=== PATIENT | female | born 1965 | race Caucasian/White ===

== ENCOUNTER 2019-08-10 17:45 | Emergency (ER) | payer OTHER, SELFPAY ==
--- NOTE | ~2019-08-10 | XR_ITS ---
EXAMINATION: XR tibia fibula LT 2V INDICATION: Left lower limb pain TECHNIQUE: Three views of the left tibia and fibula are obtained on two radiographs. COMPARISON: None available FINDINGS: There is no fracture, dislocation, or subluxation. The bones, soft tissues, and joint space s are normal. IMPRESSION: 1. No acute osseous abnormality. Reviewed, dictated and finalized at location A.
--- NOTE | ~2019-08-10 | XR_ITS ---
EXAMINATION: XR hand LT min 3V INDICATION: Left hand pain TECHNIQUE: Three views of the left hand are obtained. COMPARISON: 01/27/2012 FINDINGS: There is no fracture, dislocation, or subluxation. Bone alignment is normal. The soft tissu es are unremarkable. Mild osteoarthritis is noted. IMPRESSION: 1. No acute osseous abnormality. Reviewed, dictated and finalized at location A.
--- NOTE | ~2019-08-10 | XR_ITS ---
EXAMINATION: XR foot RT min 3V DATE: 08/10/2019 19:00 INDICATION: Right foot pain TECHNIQUE: Dorsoplantar, lateral, and 2 oblique views of the right foot were obtained. COMPARISON: None. FINDINGS: There is heterotopic ossification at the lateral base of the fifth metatarsal which has the appearance of a prior fracture. No definite acute osseous abnormality is identified. There is mild o steoarthritis at multiple interphalangeal joints. IMPRESSION: 1. No acute osseous abnormality. Reviewed, dictated and finalized at location A.
[2019-08-10 17:45] VITALS: PULSE 97; RESP 16; TEMP 36.7; O2SAT 95
--- NOTE | 2019-08-10 17:58 | PC.NURSE ---
CCOLLAR REMOVED BY AL WARE AT THIS TIME.
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
[2019-08-10 19:37] VITALS: BP 119/57; PULSE 95; RESP 18; O2SAT 98
== END 2019-08-10 20:10 | disposition home or self-care (01) ==
PROVIDERS: Emergency Provider General Practice; PCP Family Medicine
DX: S60.222A Contusion of left hand, initial encounter (principal); S90.31XA Contusion of right foot, initial encounter; V43.52XA Car driver injured in collision with other type car in traffic accident, initial encounter
CPT/HCPCS: 73130; 73590; 73630; 96365; 99284; J0131

== ENCOUNTER → 2020-01-19 12:56 | Outpatient (CLI) | payer OTHER, MEDICARE, SELFPAY ==
--- NOTE | ~2020-01-19 | MM_ITS ---
EXAMINATION: MM screening sergio BI w riaz HISTORY: Screening mammogram TECHNIQUE: Craniocaudal and mediolateral oblique 3-D tomosynthesis images were obtained and synthetic 2-D images were generated. CAD analysis was submitted and interpreted. COMPARISON: 01/31/2018 bilateral digital screening mammogram 10/11/2016 Limited left breast ultrasound 12/28/2015, 12/14/2013 bilateral digital screening mammogram examinations BREAST PARENCHYMAL COMPOSITION: The breasts are almost entirely fatty. FINDINGS: There is no evidence of suspicious mass, calcification, or architectural distortion to sugg est malignancy in either breast. There has been no suspicious interval change. IMPRESSION: 1. No mammographic evidence of malignancy. 2. Recommend routine screening mammography in one year. BI-RADS Category 1: Negative Reviewed, dictated and finalized at location A. NG MILL OPERATOR FOR METAL
== END ==
PROVIDERS: PCP Family Medicine; Visit Provider Family Medicine
DX: Z12.31 Encounter for screening mammogram for malignant neoplasm of breast (principal)
CPT/HCPCS: 77063; 77067

== ENCOUNTER 2020-04-26 10:17 | Outpatient (CLI) | payer OTHER, MEDICARE, SELFPAY ==
--- NOTE | 2020-04-26 11:00 | NEURO_ITS ---
Impression: # Known diabetic with MS complains of numbness of hands. # Bilateral Carpal Tunnel Syndrome, sensory more than motor. # No ulnar neuropathy. # Normal needle/EMG exam. # Clinical correlation recommended. Nerve Conduction Studies Anti Sensory Summary Table Stim Site NR Peak (ms) P-T Amp (?V) Site1 Site2 Delta-P (ms) Dist (cm) Tan (m/s) Left Median Anti Sensory (2-3nd Digit) Wrist 4.8 22.4 Wrist 2-3nd Digit 4.8 14.0 29 Wrist 5.0 19.0 Wrist 2-3nd Digit 4.8 14.0 29 Right Median Anti Sensory (2-3nd Digit) Wrist 5.2 21.6 Wrist 2-3nd Digit 5.2 14.0 27 Wrist 5.4 20.3 Wrist 2-3nd Digit 5.2 14.0 27 Left Radial Anti Sensory (Base 1st Digit) Wrist 2.1 11.8 Wrist Base 1st Digit 2.1 0.0 Right Radial Anti Sensory (Base 1st Digit) Wrist 2.0 15.8 Wrist Base 1st Digit 2.0 0.0 Left Ulnar Anti Sensory (5th Digit) Wrist 2.5 45.3 Wrist 5th Digit 2.5 14.0 56 Right Ulnar Anti Sensory (5th Digit) Wrist 2.4 43.6 Wrist 5th Digit 2.4 14.0 58 Motor Summary Table Stim Site NR Onset (ms) O-P Amp (mV) Site1 Site2 Delta-0 (ms) Dist (cm) Tan (m/s) Left Median Motor (Abd Poll Brev) Wrist 3.8 1.9 Elbow Wrist 6.7 29.0 43 Elbow 10.5 2.0 Right Median Motor (Abd Poll Brev) Wrist 4.0 1.8 Elbow Wrist 7.3 30.0 41 Elbow 11.3 1.8 Left Ulnar Motor (Abd Dig Minimi) Wrist 2.5 8.7 A Elbow Wrist 5.3 30.0 57 A Elbow 7.8 7.4 Right Ulnar Motor (Abd Dig Minimi) Wrist 2.8 6.4 A Elbow Wrist 5.2 29.0 56 A Elbow 8.0 5.4 F Wave Studies NR F-Lat (ms) L-R F-Lat (ms) Left Median (Mrkrs) (Abd Poll Brev) 31.10 0.58 Right Median (Mrkrs) (Abd Poll Brev) 31.68 0.58 Left Ulnar (Mrkrs) (Abd Dig Min) 27.97 0.31 Right Ulnar (Mrkrs) (Abd Dig Min) 28.28 0.31 EMG Side Muscle Nerve Root Ins Act Fibs Amp Dur Recrt Comment Right 1stDorInt Ulnar C8-T1 Nml Nml Nml Nml Nml Right Ext Indicis Radial (Post Int) C7-8 Nml Nml Nml Nml Nml Right Ext Digitorum Radial (Post Int) C7-8 Nml Nml Nml Nml Nml Right BrachioRad Radial C5-6 Nml Nml Nml Nml Nml Right PronatorTeres Median C6-7 Nml Nml Nml Nml Nml Right Abd Poll Brev Median C8-T1 Nml Nml Nml Nml Nml Left 1stDorInt Ulnar C8-T1 Nml Nml Nml Nml Nml Left Ext Indicis Radial (Post Int) C7-8 Nml Nml Nml Nml Nml Left Ext Digitorum Radial (Post Int) C7-8 Nml Nml Nml Nml Nml Left BrachioRad Radial C5-6 Nml Nml Nml Nml Nml Left PronatorTeres Median C6-7 Nml Nml Nml Nml Nml Left Abd Poll Brev Median C8-T1 Nml Nml Nml Nml Nml Right ABD Dig Min Ulnar C8-T1 Nml Nml Nml Nml Nml Left ABD Dig Min Ulnar C8-T1 Nml Nml Nml Nml Nml Right Biceps Musculocut C5-6 Nml Nml Nml Nml Nml Right Brachialis Musculocut C5-6 Nml Nml Nml Nml Nml Right Triceps Radial C6-7-8 Nml Nml Nml Nml Nml Left Biceps Musculocut C5-6 Nml Nml Nml Nml Nml Left Brachialis Musculocut C5-6 Nml Nml Nml Nml Nml Left Triceps Radial C6-7-8 Nml Nml Nml Nml Nml MTDD
== END 2020-04-26 10:18 | disposition home or self-care (01) ==
PROVIDERS: PCP Family Medicine; Visit Provider Physician Assistant
DX: R20.0 Anesthesia of skin (principal); R20.2 Paresthesia of skin; G56.03 Carpal tunnel syndrome, bilateral upper limbs
CPT/HCPCS: 95886; 95911

== ENCOUNTER → 2020-05-10 13:27 | Outpatient (CLI) | payer OTHER, MEDICARE, SELFPAY ==
--- NOTE | ~2020-05-10 | DEXA_ITS ---
Bone Density Report Name: Desirae Ballesteros Age: 55 Sex: Female Ethnicity: White Date of : 1965 Indication: osteopenia; parental hip fracture; height loss; asthma or emphysema; postmenopausal Referring Provider: Arthur Landon Study: Bone densitometry was performed. Exam Date: May 10, 2020 Accession number: [id number] Bone Density: Region BMD T-score Z-score Classification AP Spine (L1, L2) 1.089 1.0 1.9 Normal Femoral Neck (Left) 0.594 -2.3 -1.4 Osteopenia Total Hip (Left) 0.777 -1.4 -0.8 Osteopenia Femoral Neck (Right) 0.642 -1.9 -0.9 Osteopenia Total Hip (Right) 0.855 -0.7 -0.1 Normal Total Hip Mean 0.816 -1.1 -0.5 Osteopenia World Health Organization criteria for BMD impression classify patients as: Normal (T-score at or above -1.0), Osteopenia (T-score between -1.0 and -2.5), or Osteoporosis (T-score at or below -2.5). 10-year Fracture Risk(1): Major Osteoporotic Fracture 14% Hip Fracture 1.1% Reported Risk Factors: [place] (), Neck BMD=0.594, BMI=29.5, parental fracture (1) FRAX(R) Version 3.08. Fracture probability calculated for an untreated patient. Fracture probability may be lower if the patient has received treatment. Previous Exams: Region Exam Age BMD T-score BMD Change BMD Change Date g/cm2 vs Baseline vs Previous AP Spine(L1, L2) 05/10/2020 55 1.089 1.0 -0.036 -0.013 01/31/2018 52 1.103 1.1 -0.022 -0.022 12/28/2015 50 1.125 1.3 Total Hip(Left) 05/10/2020 55 0.777 -1.4 -0.041 0.000 01/31/2018 52 0.777 -1.4 -0.041* -0.041* 12/28/2015 50 0.818 -1.0 Total Hip(Right) 05/10/2020 55 0.855 -0.7 -0.039 -0.014 01/31/2018 52 0.869 -0.6 -0.025 -0.025 12/28/2015 50 0.894 -0.4 *Denotes significance at 95% confidence level, LSC for AP Spine = 0.022 g/cm2, LSC for Total Hip = 0.027 g/cm2 Clinical Information Provided by Patient: Parent has had a hip fracture Has used the following medications: Vitamin D, Calcium, MTV Has the following medical conditions: Asthma or Emphysema Patient maximum height was 68.5 Menopause Age: 51 No regular weight bearing exercise Drinks caffeinated beverages Onset of menses at age 15 Number of children 2 Impression: The patient has low bone mass, based on the Left Femoral Neck T-score. The patient has an estimated ten-year risk of hip fractur
== END ==
PROVIDERS: PCP Family Medicine; Visit Provider Family Medicine
DX: Z78.0 Asymptomatic menopausal state (principal); M85.852 Other specified disorders of bone density and structure, left thigh; M85.851 Other specified disorders of bone density and structure, right thigh
CPT/HCPCS: 77080

== ENCOUNTER 2020-12-18 13:50 | Outpatient (CLI) | payer OTHER, MEDICARE, SELFPAY ==
--- NOTE | 2020-12-18 | ECG_ITS ---
Measurements Intervals [place] Rate: 92 P: 65 [place]: 177 QRS: 3 QRSD: 106 T: 43 QT: 350 QTc: 435 Interpretive Statements SINUS RHYTHM INCOMPLETE RIGHT BUNDLE BRANCH BLOCK BASELINE ARTIFACT- I, II, III BORDERLINE ECG Electronically Signed On 12-18-2020 16:48:00 CDT by Kevin Smith D.O.
[2020-12-18 14:59] LABS: Basophils Absolute Auto 0.1 K/mm3 (0.0-0.1); Basophils Percent Auto 0.8 % (0.2-1.2); Eosinophils Absolute Auto 0.2 K/mm3 (0-0.3); Eosinophils Percent Auto 2.5 % (0-4.4); Hematocrit 37.7 % (37.0-47.0); Hemoglobin 11.7 g/dL (12.0-15.0); Immature Granulocyte Absolute 0.07 K/mm3 (0.00-0.031); Immature Granulocyte Percent A 0.8 % (0-0.5); Lymphocytes Absolute Auto 1.26 K/mm3 (0.9-3.2); Lymphocytes Percent Auto 13.9 % (18.3-44.2); Mean Corpuscular Volume 90.2 fl (80-100); Mean Platelet Volume 9.4 fl (7.4-10.4); Monocytes Absolute Auto 0.8 K/mm3 (0.1-0.6); Monocytes Percent Auto 8.6 % (2.6-8.5); Neutrophils Absolute Auto 6.7 K/mm3 (1.3-6.7); Neutrophils Percent Auto 73.4 % (45.5-73.1); Platelet Count Result 285 k/mm3 (150-375); Red Blood Count 4.18 M/mm3 (4.2-5.4); White Blood Count 9.1 K/mm3 (4.5-10.0)
[2020-12-18 15:11] LABS: Add Urine Microscopic? YES; Appearance Urine Cloudy (Clear); Bilirubin Urine Negative (Negative); Blood Urine Negative (Negative); Calcium Oxalate Crystals Urine Present /hpf; Color Urine Amber (Yellow); Glucose Urine UA Negative (Negative); Ketones Urine Negative (Negative); Leukocyte Esterase Ur Trace LEU/UL (Negative); Mucus Urine Rare /lpf; Nitrate Urine Negative (Negative); Protein Urine Negative (Negative); Specific Grav Ur 1.024 (1.001-1.035); Squamous Epithelial Cell Urine Occasional /hpf (Few); Urobilinogen Urine Negative mg/dL (<2.0)
[2020-12-18 15:19] LABS: Anion Gap 9 mmol/L (8-16); Blood Urea Nitrogen 13 mg/dL (7-17); CRP < 0.5 mg/dL (<1.0); Calcium 9.4 mg/dL (8.4-10.2); Carbon Dioxide 30 mmol/L (22-30); Chloride 100 mmol/L (98-107); Estimated Glomerular Filt Rate > 60; Glucose 145 mg/dL (65-110); Sodium 139 mmol/L (137-145)
[2020-12-18 15:53] LABS: Erythrocyte Sedimentation Rate 16 mm/hr (0-20)
== END 2020-12-18 13:51 | disposition home or self-care (01) ==
PROVIDERS: PCP Family Medicine; Visit Provider Nurse Practitioner Adult Health
DX: Z01.812 Encounter for preprocedural laboratory examination (principal); M54.16 Radiculopathy, lumbar region; G89.29 Other chronic pain
CPT/HCPCS: 36415; 80048; 81001; 85025; 85652; 86140; 93005

== ENCOUNTER 2020-12-26 15:22 | Outpatient (CLI) | payer OTHER, MEDICARE, SELFPAY ==
[2020-12-26 16:05] LABS: Add Urine Microscopic? YES; Appearance Urine Cloudy (Clear); Bilirubin Urine Negative (Negative); Blood Urine Negative (Negative); Color Urine Yellow (Yellow); Glucose Urine UA Negative (Negative); Ketones Urine Negative (Negative); Leukocyte Esterase Ur Trace LEU/UL (Negative); Mucus Urine Rare /lpf; Nitrate Urine Negative (Negative); Protein Urine Negative (Negative); RBC Urine 0-2 /hpf (0-2); Specific Grav Ur 1.009 (1.001-1.035); Squamous Epithelial Cell Urine Occasional /hpf (Few); Urobilinogen Urine Negative mg/dL (<2.0); WBC Urine 0-3 /hpf
== END 2020-12-26 15:23 | disposition home or self-care (01) ==
PROVIDERS: Pain Medicine Pain Medicine; PCP Family Medicine; Visit Provider Nurse Practitioner Adult Health
DX: Z01.812 Encounter for preprocedural laboratory examination (principal)
CPT/HCPCS: 81001

== ENCOUNTER → 2021-01-19 13:30 | Outpatient (CLI) | payer OTHER, MEDICARE, SELFPAY ==
--- NOTE | ~2021-01-19 | XR_ITS ---
EXAMINATION: XR knee RT 2V DATE: 01/19/2021 14:37 INDICATION: Right knee pain. TECHNIQUE: 2 views of right knee standing were obtained. COMPARISON: Right knee radiographs 02/24/2015 FINDINGS: Bone alignment is normal. No fracture. There is mild tricompartment osteoarthritis. No knee joint effusion. IMPRESSION: 1. Mild right knee osteoarthritis. Reviewed, dictated and finalized at location A. EMS MANAGER
--- NOTE | ~2021-01-19 | XR_ITS ---
EXAMINATION: XR shoulder RT min 2V DATE: 01/19/2021 14:37 INDICATION: Right shoulder pain. TECHNIQUE: 4 views of right shoulder were obtained. COMPARISON: None. FINDINGS: Bone alignment is normal. No fracture. Glenohumeral joint is normal. There is mild osteoart hritis of acromioclavicular joint. There changes of anterior fusion procedure in cervical spine. Elec trodes overlie thoracic spine. IMPRESSION: 1. Mild osteoarthritis of acromioclavicular joint. Reviewed, dictated and finalized at location A. TRUSS MACHINE TENDER
== END ==
PROVIDERS: PCP Family Medicine; Visit Provider Nurse Practitioner Adult Health
DX: M19.011 Primary osteoarthritis, right shoulder (principal); M17.11 Unilateral primary osteoarthritis, right knee
CPT/HCPCS: 73030; 73560

== ENCOUNTER → 2021-02-27 00:57 | Outpatient (CLI) | payer OTHER, MEDICARE, SELFPAY ==
[2021-02-27 15:13] LABS: Influenza Control Positive
[2021-02-27 21:03] LABS: SARS-CoV-2 RNA PCR Negative
== END ==
PROVIDERS: Physician Assistant; PCP Family Medicine; Visit Provider Family Medicine
DX: R05.9 Cough, unspecified (principal); Z20.822 Contact with and (suspected) exposure to COVID-19
CPT/HCPCS: 87804; C9803; U0003; U0005

== ENCOUNTER → 2021-02-28 12:51 | Outpatient (CLI) | payer OTHER, MEDICARE, SELFPAY ==
--- NOTE | ~2021-02-28 | MM_ITS ---
EXAMINATION: MM screening sergio BI w riaz HISTORY: Screening TECHNIQUE: Craniocaudal and mediolateral oblique 3-D tomosynthesis images were obtained and synthetic 2-D images were generated. CAD analysis was submitted and interpreted. COMPARISON: Comparison to multiple prior studies sequentially, with oldest reviewed study dated 06/06. BREAST PARENCHYMAL COMPOSITION: The breasts are almost entirely fatty. FINDINGS: There is no evidence of suspicious mass, calcification, or architectural distortion to sugg est malignancy in either breast. There has been no suspicious interval change. IMPRESSION: 1. No mammographic evidence of malignancy. 2. Recommend routine screening mammography in one year. BI-RADS Category 1: Negative Reviewed, dictated and finalized at location A. STANT SECRETARY
== END ==
PROVIDERS: PCP Family Medicine; Visit Provider Physician Assistant
DX: Z12.31 Encounter for screening mammogram for malignant neoplasm of breast (principal)
CPT/HCPCS: 77063; 77067

== ENCOUNTER → 2022-10-30 14:21 | Outpatient (CLI) | payer OTHER, MEDICARE, SELFPAY ==
--- NOTE | ~2022-10-30 | MM_ITS ---
EXAMINATION: MM screening sergio BI w riaz HISTORY: Screening mammogram TECHNIQUE: Craniocaudal and mediolateral oblique 3-D tomosynthesis images were obtained and synthetic 2-D images were generated. CAD analysis was submitted and interpreted. COMPARISON: 02/28/2021, 01/19/2020 bilateral screening mammogram examinations BREAST PARENCHYMAL COMPOSITION: The breasts are almost entirely fatty. FINDINGS: Approximately 3 mm mass is suggested in the central right breast. Diagnostic right mammogra m and right breast ultrasound examination are recommended. Otherwise there is no evidence of suspicious mass, calcification, or architectural distortion to sugg est malignancy in either breast. There has been no other suspicious interval change. IMPRESSION: 1. 3 mm mass suggested in central right breast 2. Diagnostic right mammogram and right breast ultrasound examination are recommended BI-RADS Category 0: Incomplete: Needs additional imaging evaluation. Reviewed, dictated and finalized at location A. IMPRESSION: 1. 3 mm mass suggested in central right breast 2. Diagnostic right mammogram and right breast ultrasound examination are recom mended BI-RADS Category 0: Incomplete: Needs additional imaging evaluation.
== END ==
PROVIDERS: PCP Physician Assistant; Visit Provider Physician Assistant
DX: Z12.31 Encounter for screening mammogram for malignant neoplasm of breast (principal); N63.10 Unspecified lump in the right breast, unspecified quadrant
CPT/HCPCS: 77063; 77067

== ENCOUNTER 2023-05-08 11:08 | Outpatient (CLI) | payer OTHER, MEDICARE, SELFPAY ==
--- NOTE | ~2023-05-08 | CT_ITS ---
EXAMINATION: CT thoracic spine wo con DATE: 05/08/2023 11:29 INDICATION: Presence of neurostimulator. Other mechanical complication. TECHNIQUE: Computed tomography (CT) of the thoracic spine was performed without intravenous contrast. Automated exposure control and iterative reconstruction technique were employed. The dose-length pro duct was 953.33 mGy-cm. COMPARISON: None FINDINGS: There is 4 degrees dextrocurvature of thoracic spine. There are changes of anterior fusion procedure from C4 to C7 with interbody devices and anterior plate and screws. There is mild chronic a nterior wedging of T6, T7, T10, T11, and T12 vertebral bodies. There is mildly decreased disc height at multiple levels. There are bridging endplate osteophytes from T4 to T8, consistent with diffuse id iopathic skeletal hyperostosis (DISH). There is multilevel facet joint osteoarthritis, severe in the upper and lower thoracic spine. At T6-T7, there is a calcified left central extrusion with mild centr al canal stenosis. At T7-T8, there is a central extrusion with mild central canal stenosis. There is multilevel mild neural foraminal stenosis bilaterally. There are epidural electrodes with tips at T8 and T9-T10, respectively. IMPRESSION: 1. Mild thoracic spondylosis. 2. DISH. Reviewed, dictated and finalized at location E.
--- NOTE | ~2023-05-08 | CT_ITS ---
EXAMINATION: CT lumbar spine wo con DATE: 05/08/2023 11:29 INDICATION: Presence of neurostimulator. Other mechanical complication. TECHNIQUE: Computed tomography (CT) of the lumbar spine was performed without intravenous contrast. A utomated exposure control and iterative reconstruction technique were employed. The dose-length produ ct was 952.88 mGy-cm. COMPARISON: None FINDINGS: There is 3 degrees dextrocurvature of lumbar spine. There is mild chronic anterior wedging of T12 vertebral body. There is mildly decreased disc height at L2-L3 and severely decreased disc hei ght from L3-L4 through L5-S1. Partially visualized are epidural electrodes. The following disc levels are specifically discussed: L1-L2: The disc is bulging. There is severe bilateral facet joint osteoarthritis. There is mild right neural foraminal stenosis. There is mild central canal stenosis. L2-L3: The disc is bulging. There is severe bilateral facet joint osteoarthritis. There is moderate b ilateral neural foraminal stenosis. There is moderate central canal stenosis. L3-L4: The disc is bulging. There is severe bilateral facet joint osteoarthritis. There is moderate b ilateral neural foraminal stenosis. There is moderate central canal stenosis. L4-L5: The disc is bulging. There is severe bilateral facet joint osteoarthritis. There is moderate b ilateral neural foraminal stenosis. There is moderate central canal stenosis. L5-S1: The disc is bulging. There is severe bilateral facet joint osteoarthritis. There is moderate b ilateral neural foraminal stenosis. There is mild central canal stenosis. There is severe stenosis of right lateral recess. IMPRESSION: 1. Severe lumbar spondylosis. Reviewed, dictated and finalized at location E.
== END 2023-05-08 11:09 ==
LOC: MICIMG 11:09
PROVIDERS: PCP Family Medicine; Visit Provider Pain Medicine Pain Medicine
DX: Z96.82 Presence of neurostimulator (principal); T85.192A Other mechanical complication of implanted electronic neurostimulator of spinal cord electrode (lead), initial encounter; M43.04 Spondylolysis, thoracic region; M48.14 Ankylosing hyperostosis [Forestier], thoracic region; M43.06 Spondylolysis, lumbar region
CPT/HCPCS: 72128; 72131

== ENCOUNTER 2023-07-23 11:49 | Outpatient (CLI) | payer OTHER, MEDICARE, SELFPAY ==
--- NOTE | 2023-07-23 | ECG_ITS ---
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 Measurements Intervals [place] Rate: 97 P: 217 AR: 341 QRS: 21 QRSD: 110 T: 43 QT: 338 QTc: 429 Interpretive Statements SINUS RHYTHM SEPTAL MYOCARDIAL INFARCTION , PROBABLY OLD [40+ ms Q WAVE IN V1/V2] BASELINE ARTIFACT WHICH LIMITS INTERPRETATION No previous ECG available for comparison Electronically Signed On 07-23-2023 14:17:49 CDT by Kristofer Caal M.D.
[2023-07-23 12:50] LABS: Basophils Percent Auto 0.8 % (0.2-1.2); Eosinophils Absolute Auto 0.2 K/mm3 (0-0.3); Eosinophils Percent Auto 3.6 % (0-4.4); Hematocrit 42.7 % (37.0-47.0); Hemoglobin 12.9 g/dL (12.0-15.0); Immature Granulocyte Absolute 0.03 K/mm3 (0.00-0.031); Immature Granulocyte Percent A 0.6 % (0-0.5); Lymphocytes Absolute Auto 0.65 K/mm3 (0.9-3.2); Lymphocytes Percent Auto 12.5 % (18.3-44.2); Mean Corpuscular HGB Conc 30.2 g/dl (32-36); Mean Corpuscular Volume 89.3 fl (80-100); Mean Platelet Volume 9.4 fl (7.4-10.4); Monocytes Absolute Auto 0.3 K/mm3 (0.1-0.6); Monocytes Percent Auto 5.6 % (2.6-8.5); Neutrophils Percent Auto 76.9 % (45.5-73.1); Platelet Count Result 256 k/mm3 (150-375); Red Blood Count 4.78 M/mm3 (4.2-5.4); Red Cell Distribution Width 16.3 % (11.5-14.5); White Blood Count 5.2 K/mm3 (4.5-10.0)
[2023-07-23 13:09] LABS: Alanine Aminotransferase 22 U/L (6-35); Albumin Level 4.9 g/dL (3.5-5.1); Alkaline Phosphatase 90 U/L (38-126); Anion Gap 8 mmol/L (4-12); Aspartate Amino Transferase 22 U/L (14-36); Bilirubin,Total 0.6 mg/dL (0.2-1.3); Blood Urea Nitrogen 14 mg/dL (7-17); CRP 0.5 mg/dL (<1.0); Carbon Dioxide 29 mmol/L (22-30); Chloride 102 mmol/L (98-107); Estimated Glomerular Filt Rate > 60; Glucose 102 mg/dL (65-110); Potassium 4.3 mmol/L (3.4-5.0); Sodium 139 mmol/L (137-145)
[2023-07-23 13:12] LABS: Appearance Urine Clear (Clear); Bacteria Urine 4+ /hpf; Bilirubin Urine Negative (Negative); Blood Urine Negative (Negative); Color Urine Dark Yellow (Yellow); Glucose Urine UA Negative (Negative); Ketones Urine Negative (Negative); Leukocyte Esterase Ur 1+ LEU/UL (Negative); Nitrate Urine Positive (Negative); Non Pathogenic Casts 0-2; Protein Urine Negative (Negative); RBC Urine 0-2 /hpf (0-2); Specific Grav Ur 1.015 (1.001-1.035); Squamous Epithelial Cell Urine None Seen /hpf (Few); Urobilinogen Urine 0.2 mg/dL (<2.0); pH Urine 7.5 (5.0-9.0)
[2023-07-23 13:23] LABS: Add Urine Microscopic? YES
[2023-07-23 14:51] LABS: Erythrocyte Sedimentation Rate 8 mm/hr (0-20)
== END 2023-07-23 11:50 | disposition home or self-care (01) ==
LOC: ANHLAB 11:54
PROVIDERS: PCP Family Medicine; Visit Provider Pain Medicine Pain Medicine
DX: Z01.818 Encounter for other preprocedural examination (principal); Z79.899 Other long term (current) drug therapy; I25.2 Old myocardial infarction
CPT/HCPCS: 36415; 80053; 81001; 85025; 85652; 86140; 87077; 87086; 87088; 87186; 93005

== ENCOUNTER 2024-01-29 14:33 | Outpatient (CLI) | payer OTHER, MEDICARE, SELFPAY ==
--- NOTE | ~2024-01-29 | CT_ITS ---
EXAMINATION: CT cervical spine wo con DATE: 01/29/2024 15:00 INDICATION: Other cervical disc degeneration, unspecified. TECHNIQUE: Computed tomography (CT) of the cervical spine was performed without intravenous contrast. Automated exposure control and iterative reconstruction technique were employed. The dose-length pro duct was 412.44 mGy-cm. COMPARISON: None FINDINGS: Alignment is normal. There are changes of anterior fusion procedure from C4 to C7 with inte rbody graft and anterior plate and screws. There is bridging interbody bone at C5-C6. Vertebral body heights are normal. Intervertebral disc heights are normal. The following disc levels are specificall y discussed: C2-C3: There is severe right and moderate left uncovertebral joint osteoarthritis. There is mild righ t facet joint osteoarthritis. There is mild bilateral neural foraminal stenosis. There is no central canal stenosis. C3-C4: There is a large central extrusion. There is moderate right and mild left uncovertebral joint osteoarthritis. There is mild bilateral facet joint osteoarthritis. There is mild right neural forami nal stenosis. There is moderate central canal stenosis. C4-C5: There is moderate bilateral uncovertebral joint hypertrophy. There is mild bilateral facet arabella nt osteoarthritis. There is mild right neural foraminal stenosis. There is mild central canal stenosi s. C5-C6: There is mild bilateral uncovertebral joint hypertrophy. There is mild bilateral facet joint h ypertrophy. There is mild right neural foraminal stenosis. There is mild central canal stenosis. C6-C7: There is mild bilateral uncovertebral joint hypertrophy. There is mild bilateral facet joint o steoarthritis. There is mild bilateral neural foraminal stenosis. There is mild central canal stenosi s. C7-T1: There is no uncovertebral joint osteoarthritis. There is mild bilateral facet joint osteoarthr itis. There is no neural foraminal stenosis. There is mild central canal stenosis. IMPRESSION: 1. Anterior fusion procedure from C4 to C7. 2. Moderate cervical spondylosis, worst at C3-C4. Reviewed, dictated and finalized at location A. CUTTER
== END 2024-01-29 14:34 | disposition home or self-care (01) ==
PROVIDERS: Visit Provider Neurological Surgery
DX: M43.22 Fusion of spine, cervical region (principal); M47.812 Spondylosis without myelopathy or radiculopathy, cervical region; M50.30 Other cervical disc degeneration, unspecified cervical region; M48.02 Spinal stenosis, cervical region
CPT/HCPCS: 72125

== ENCOUNTER 2024-02-13 13:48 | Outpatient (CLI) | payer OTHER, MEDICARE, SELFPAY ==
--- NOTE | 2024-02-13 15:13 | ECG_ITS ---
Test Date: 2024-02-13 15:27:45 Measurements Intervals [place] Rate: 105 P: 72 ND: 157 QRS: 7 QRSD: 96 T: 51 QT: 336 QTc: 444 Interpretive Statements SINUS TACHYCARDIA INCOMPLETE RIGHT BUNDLE BRANCH BLOCK [90+ ms QRS DURATION, TERMINAL R IN V1/V2, 40+ ms S IN I/aVL/V4/V5/V6] LEFTWARD AXIS ABNORMAL ECG Electronically Signed On 02-13-2024 17:27:41 IMPREGNATOR by Bal Huntley M.D.
[2024-02-13 15:35] LABS: Hematocrit 43.8 % (37.0-47.0); Hemoglobin 14.1 g/dL (12.0-15.0); Mean Corpuscular HGB Conc 32.2 g/dl (32-36); Mean Corpuscular Hemoglobin 28.5 pg (26-34); Mean Corpuscular Volume 88.5 fl (80-100); Mean Platelet Volume 9.1 fl (7.4-10.4); Platelet Count Result 275 k/mm3 (150-375); Red Blood Count 4.95 M/mm3 (4.2-5.4); Red Cell Distribution Width 13.7 % (11.5-14.5); White Blood Count 7.8 K/mm3 (4.5-10.0)
[2024-02-13 15:47] LABS: Add Urine Microscopic? YES; Appearance Urine Cloudy (Clear); Bacteria Urine None Seen /hpf; Bilirubin Urine 1+ (Negative); Blood Urine Negative (Negative); Calcium Oxalate Crystals Urine Present /hpf; Color Urine Dark Yellow (Yellow); Glucose Urine UA Negative (Negative); Ketones Urine Trace mg/dL (Negative); Leukocyte Esterase Ur 1+ LEU/UL (Negative); Nitrate Urine Negative (Negative); Non Pathogenic Casts 0-2; Protein Urine Trace mg/dL (Negative); Specific Grav Ur 1.026 (1.001-1.035); Squamous Epithelial Cell Urine Occasional /hpf (Few); Urobilinogen Urine 0.2 mg/dL (<2.0); pH Urine 5.5 (5.0-9.0)
[2024-02-13 16:22] LABS: INR 0.9; Partial Thromboplastin Time 25.1 Seconds (22.3-36.8); Prothrombin Time 12.2 Seconds (11.1-14.7)
== END 2024-02-13 13:49 | disposition home or self-care (01) ==
PROVIDERS: PCP Family Medicine; Visit Provider Neurological Surgery
DX: Z01.818 Encounter for other preprocedural examination (principal); R94.31 Abnormal electrocardiogram [ECG] [EKG]; M48.02 Spinal stenosis, cervical region; I10 Essential (primary) hypertension
CPT/HCPCS: 36415; 81001; 85027; 85610; 85730; 87086; 93005

== ENCOUNTER 2024-03-01 12:21 | Outpatient (CLI) | payer OTHER, MEDICARE, SELFPAY ==
--- NOTE | ~2024-03-01 | XR_ITS ---
[id number] Ordering provider: Phyllis Mcdonnell MD History: . M48.02 - Spinal stenosis, cervical region . Comparison: None. FINDINGS: VERTEBRAL BODIES: Postoperative changes extending from C4 to C7. Normal height and alignment. No visi ble fracture or subluxation. The dens is intact. DISK SPACES: Well maintained. Disc spacers at the levels of C3-C4, C4-C5 and C5-C6 PARASPINOUS SOFT TISSUES: No prevertebral soft tissue swelling. IMPRESSION: No acute osseous abnormality cervical spine. Postoperative changes. Reviewed, dictated and finalized at location A. INTAKE WORKER
== END 2024-03-01 12:22 | disposition home or self-care (01) ==
PROVIDERS: PCP Family Medicine; Visit Provider Neurological Surgery
DX: M50.21 Other cervical disc displacement, high cervical region (principal); M50.221 Other cervical disc displacement at C4-C5 level; M50.222 Other cervical disc displacement at C5-C6 level; M48.02 Spinal stenosis, cervical region
CPT/HCPCS: 72040

== ENCOUNTER 2024-05-02 14:15 | Outpatient (CLI) | payer OTHER, MEDICARE, SELFPAY ==
--- NOTE | ~2024-05-02 | XR_ITS ---
Thoracic spine: Clinical Indication: Neurostimulator AP and lateral views were performed. No fracture is seen. There is normal alignment of the vertebrae. There is multilevel moderate degene rative disc narrowing throughout the thoracic spine. Paravertebral soft tissues appear normal. Neuros timulator device present. Cervical spine fixation hardware noted. Impression: Multilevel moderate degenerative disc narrowing throughout the thoracic spine. Reviewed, dictated and finalized at location . Impression: Multilevel moderate degenerative disc narrowing throughout the thoracic spine.
--- NOTE | ~2024-05-02 | XR_ITS ---
Lumbosacral Spine: AP and lateral views Clinical History: Pain Findings: The normal lordotic curve is maintained. No fracture or subluxation seen. There is severe d egenerative disc narrowing from L3 through S1. There is moderate degenerative disc narrowing at L1-L2 and L2-L3. There is moderate to severe facet arthropathy throughout the lumbar spine, worst from L3 through S1. The sacroiliac joints are normally outlined. Neurostimulator device present. Impression: Severe degenerative spondylosis, as above. Reviewed, dictated and finalized at location M. Impression: Severe degenerative spondylosis, as above.
--- OUTSIDE RECORDS SUMMARY | 2024-05-02 14:21 | XMS_ITS | Clinical Summary ---
Author Organization [facility] [employer] Address [address] [place] [address] Care Team Providers Care Locomotive Crane Engineer Name Role Phone Arthur Landon MD Primary Care Provider [phone] [facility] [employer],non-owned Affiliates and Associated Physician Practices is amultiple site organization consisting of ambulatory clinics and hospital sitesin [place], [place], [place] and [place]. This disclosure is being madepursuant to the Care Everywhere program and may not contain all information available regarding this patient. Last updated 17.[facility] [employer] Allergies Active Allergy Reactions Criticality Noted Date Comments Sulfamethoxazole W-Trimethoprim Rash Medium 05/18 Clarithromycin 02/24/2016 Hydrocodone-Acetaminophen 02/24/2016 Medications * Be aware that medications may not be up to date on this document. Alwaysverify current medications with the patient. Medication Sig Dispensed Refills Start Date End Date Status METFORMIN HCL PO Active Natalizumab (TYSABRI IV) Active DULoxetine (CYMBALTA) 60 MG capsule Take 90 mg by mouth once daily Active gabapentin PHN (GRALISE) 300 MG tablet Take 900 mg by mouth daily with dinner Active BACLOFEN PO Active CLONAZEPAM PO Active Mometasone Furo-Formoterol Fum (DULERA IN) Active Cholecalciferol (VITAMIN D-3 PO) Active Calcium Carbonate (CALTRATE 600 PO) Active CRANBERRY FRUIT PO Active B Complex Vitamins (VITAMIN B COMPLEX PO) Active Multiple Vitamins-Minerals (EMERGEN-C IMMUNE PO) Active fluticasone propionate (FLONASE) 50 MCG/ACT nasal spray [place] 1 [place] into each nostril 2 times daily 1 Bottle 1 02/24/2016 Active pregabalin (LYRICA) 50 MG capsule Take 50 mg by mouth 3 times daily Active buPROPion SR 12hr (WELLBUTRIN SR) 150 MG tablet Take 150 mg by mouth 2 times daily Active albuterol HFA (PROVENTIL;VENTOLIN; PROAIR) 108 (90 BASE) MCG/ACT inhalerIndications:A sthma with acute exacerbation, unspecified asthma severity, unspecified whether persistent (HCC) Inhale 2 puffs by mouth every 4 hours as needed for Shortness of Breath, Wheezing or Cough 1 Inhaler 10/25/2017 Active Social History Tobacco Use Types Packs/Day Years Used Date Smoking Tobacco: Never Smokeless Tobacco: Never Sex and Gender Information Value Date Recorded Sex Assigned at Not on file Gender Identity Not on file Sexual Orientation Not on file Last Filed Vital Signs Vital Sign Reading Time Taken Comments Blood Pressure 132/80 10/25/2017 11:07 AM CDT Pulse 114 10/25/2017 11:07 AM CDT Temperature 37.1 C (98.7 F) 10/25/2017 11:07 AM CDT Respiratory Rate 18 10/25/2017 11:07 AM CDT Oxygen Saturation 97% 10/25/2017 11:07 AM CDT Inhaled Oxygen Concentration - - Weight 88.9 kg (196 lb) 10/25/2017 11:07 AM CDT Height 172.7 cm (5' 8 ) 10/25/2017 11:07 AM CDT Body Mass Index 29.8 10/25/2017 11:07 AM CDT Plan of Treatment Health Maintenance Due Date Last Done Comments COLOGUARD (AGES 45-75) - COL ON CA SCREENING 1965 COLON MONITORING 1967 COLONOSCOPY - COLON CA SCREENING 1967 CT COLONOGRAPHY - COLON CA SCREENING 1965 Colorectal Cancer Screening 1965 FIT - COLON CA SCREENING 1967 FLEX SIG - COLON CA SCREENING 1967 LIPID TESTING 1965 MAMMOGRAM 1965 MEDICARE AWV 12 MONTHS 1967 PAP SMEAR 1967 HIV SCREENING 1982 HEPATITIS C SCREENING 02/09/1985 DTAP/TDAP/TD VACCINES (1 - Tdap) 1986 HEPATITIS B VACCINE (1 of 3 - 19+ 3-dose series) 1986 PNEUMOCOCCAL VACCINE 50+ (1 of 1 - PCV) 2017 ZOSTER VACCINE (1 of 2) 2017 SCREENING FOR DIABETES 03/12/2017 COVID-19 VACCINE (1 - 2023-2 5 season) 2023 INFLUENZA VACCINE (#1) 2023 6, 02/17/2007 DEPRESSION SCREENING 02/18/2024 HIB VACCINE Aged Out No longer eligi ble based on patient's age to complete this topic HPV VACCINE Aged Out No longer eligi ble based on patient's age to complete this topic MENINGOCOCCAL (Group B) VACCINE SHARED DECISION-MAKING Aged Out No longer eligible based on patient's age to complete this topic MENINGOCOCCAL GROUPS A/C/Y/W VACCINE Aged Out No longer eligible b ased on patient's age to complete this topic PNEUMOCOCCAL VACCINE Aged Out No long er eligible based on patient's age to complete this topic Care Teams Locomotive Crane Engineer Relationship Specialty Start Date End Date Arthur Landon MD [address] [place] [address] PCP - General Family Medicine 02/24/16
--- OUTSIDE RECORDS SUMMARY | 2024-05-02 14:21 | XMS_ITS | Patient Health Summary ---
Author Organization [facility] Address [address] [place] [address] Care Team Providers Care Anime Artist Name Role Phone Arthur Landon MD Primary Care Provider [phone] Note from [facility],non-owned Affiliates and Associated Physician Practices is amultiple site organization consisting of ambulatory clinics and hospital sitesin [place], [place], [place] and [place]. This disclosure is being madepursuant to the Care Everywhere program and may not contain all information available regarding this patient. Last updated 17.[facility] Allergies * Sulfamethoxazole W-Trimethoprim(Rash) -Medium Criticality * Clarithromycin * Hydrocodone-Acetaminophen Medications * Be aware that medications may not be up to date on this document. Alwaysverify current medications with the patient. * METFORMIN HCL PO * Natalizumab (TYSABRI IV) * DULoxetine (CYMBALTA) 60 MG capsule Take 90 mg by mouth once daily * gabapentin PHN (GRALISE) 300 MG tablet Take 900 mg by mouth daily with dinner * BACLOFEN PO * CLONAZEPAM PO * Mometasone Furo-Formoterol Fum (DULERA IN) * Cholecalciferol (VITAMIN D-3 PO) * Calcium Carbonate (CALTRATE 600 PO) * CRANBERRY FRUIT PO * B Complex Vitamins (VITAMIN B COMPLEX PO) * Multiple Vitamins-Minerals (EMERGEN-C IMMUNE PO) * fluticasone propionate (FLONASE) 50 MCG/ACT nasal spray(Started 02/24/2016) [place] 1 [place] into each nostril 2 times daily 1 refill remaining * pregabalin (LYRICA) 50 MG capsule Take 50 mg by mouth 3 times daily * buPROPion SR 12hr (WELLBUTRIN SR) 150 MG tablet Take 150 mg by mouth 2 times daily * albuterol HFA (PROVENTIL;VENTOLIN;PROAIR) 108 (90 BASE) MCG/ACT inhaler (Started 10/25/2017) Inhale 2 puffs by mouth every 4 hours as needed for Shortness of Breath, Wheezing or Cough Social History Tobacco Use Types Packs/Day Years [...] Mass Index 29.8 10/25/2017 11:07 AM CDT Procedures * PULSE OXIMETRY - POINT OF CARE (AMB)(Performed 10/25/2017) Performed for Asthma with acute exacerbation, unspecified asthma severity, unspecified whether persistent (HCC) Results * PULSE OXIMETRY - POINT OF CARE (AMB) (10/25/2017) Oximetry POCT 97 0 - 100 % QC Verified Yes Blood BLOOD SPECIMEN / Unknown 10/25/2017 Caroline Silva APRN-[facility] - POINT OF CARE ORDERABLES Care Teams Anime Artist Relationship Specialty Start Date End Date Arthur Landon MD [address] [place] [address] PCP - General Family Medicine 02/24/16
--- OUTSIDE RECORDS SUMMARY | 2024-05-02 14:21 | XMS_ITS ---
Author Organization [facility] [employer] [facility] Address [address] [facility] [address] [place] [address] Care Team Providers Care Agate Setter Name Role Phone Cody Rice Unavailable [phone] Social History Sex Assigned At : Social History Observation Description Sex Assigned At Female Encounters Encounter Location Date Provider Diagnosis [facility] [employer] [facility] [address] [facility] [address] [place] [address] 10/14/2023 Cody Rice Major depressive disorder, recurrent, mild F33.0 Assessments Encounter Date Diagnosis (ICD Code) Assessment Notes Treatment Notes Treatment Clinical Notes Section Notes 10/14/2023 Major depressive disorder, recurrent, mild (ICD-10 - F33.0) Plan Of Treatment Next Appt Details Provider Name:Cody dos santos, 05/25/2024 02:00:00 PM, [address], [facility] [address], [place], [address], Progress Notes * DEON HOPEOB:1965 ( 58 yo F)Acc No.[id number]:10/14/2023 Patient: LINA MARI :1965 A ge:58 Y S ex:Female Address:[address] [place], [address] Subjective: * Chief Complaints: * * Medical History: * Surgical History: * Hospitalization/Major Diagno stic Procedure: * Medications: Objective: * Vitals: * Physical Examination: Assessment: * Assessment: 1. M ajor depressive disorder, recurrent, mild - F33.0 (Primary) Plan: * Treatment: * Procedure Codes: * true * Date: Generated for Hai pastor/César/Lorena on: 0 05/02/2024 02:21 PM CDT
--- OUTSIDE RECORDS SUMMARY | 2024-05-02 14:21 | XMS_ITS | Referral Summary ---
Author Organization [facility] [employer] Address [address] [place] [address] Care Team Providers Care Short Range Air Defense Artillery Name Role Phone Arthur Landon MD Primary Care Provider [phone] Source Comments [facility] [employer],non-owned Affiliates and Associated Physician Practices is amultiple site organization consisting of ambulatory clinics and hospital sitesin [place], [place] and [place]. This disclosure is being madepursuant to the Care Everywhere program and may not contain all information available regarding this patient. Last updated 17.[facility] [employer] Allergies Active Allergy Reactions Criticality Noted Date [...] fluticasone propionate (FLONASE) 50 MCG/ACT nasal spray [place] 1 [place] into each nostril 2 times daily 1 [...] 10/25/2017 11:07 AM CDT Plan of Treatment Not on file Care Teams Short Range Air Defense Artillery Relationship Specialty Start Date End Date Arthur Landon MD [address] [place], [place] [id number] PCP - General Family Medicine 02/24/16
--- OUTSIDE RECORDS SUMMARY | 2024-05-02 14:21 | XMS_ITS | Clinical Summary ---
Author Organization [facility] Address [facility] [place] [address] Care Team Providers Care Vegetables Cook Name Role Phone [place] Landon MD Primary Care Provider Social History Tobacco Use Types Packs/Day Years Used Date Smoking Tobacco: Never Assessed Comments Unknown Sex and Gender Information Value Date Recorded Sex Assigned at Not on file Legal Sex Female 4:28 PM CDT Gender Identity Not on file Sexual Orientation Not on file Plan of Treatment Health Maintenance Due Date Last Done Comments Cervical Cancer Screening Pa p Smear (Age 30 to 64) Every 3 Years 1967 Colorectal Cancer Screening Colonoscopy (10 Years) 1967 Annual Physical 1970 Hepatitis C 1985 DTaP, Tdap and Td Vaccines ( 1 - Tdap) 1986 Hepatitis B Vaccines (1 of 3 - 19+ 3-dose series) 1986 Cervical Cancer Screening Pa p with HPV Testing (Age 30 to 64) Every 5 Years 1997 Cervical Cancer Screening with HPV 1997 Mammogram Screening 2007 Zoster Vaccines (1 of 2) 2017 COVID-19 Vaccine (2023-2 5 season) 2023 Influenza Adult (#1) 2023 Meningococcal B Vaccine Aged Out No l onger eligible based on patient's age to complete this topic Meningococcal Vaccine Aged Out No haresh lisandra eligible based on patient's age to complete this topic Pneumococcal Vaccine: Pediat rics (0 to 5 Years) and At-Risk Patients (6 to 64 Years) Aged Out No longer eligible b ased on patient's age to complete this topic RSV Immunizations Under 20 Months Aged Out No longer eligible based on patient's age to complete this topic Care Teams Vegetables Cook Relationship Specialty Start Date End Date [place] Landon MD [facility] [place] [phone] PCP - General 08/06/12
--- OUTSIDE RECORDS SUMMARY | 2024-05-02 14:21 | XMS_ITS | Data Portability ---
Author Organization [facility], Main Office Address [address] [place] [address] Assessment No assessment recorded. Plan of Treatment Reminders Order Date Submit Date Provider Last Modified By Organization Details Last Modified Time Details Appointments None recorded. Lab None recorded. Referral None recorded. Procedures None recorded. Surgeries None recorded. Imaging None recorded. Medication Orders clobetasol 0.05 % topical cream 2021 022 [facility] #[id number], [address], [place], [address], 12:16:38 Otezla 30 mg tablet 2021 022 [facility], [facility], [place], [address], 12:22:19 Patient TargetsNo targets recorded. Patient Instructions Encounter Date Encounter Id Patient Instructions Last Modified By Organization Details Last Modified Time 09/14/2021 [id number] OTEZLA RESTART- was controlling it well when she was on it. 1 MONTH - GIVEN SAMPLES Revd dx and tx. FU 6 mos. [email or web address] Not available 10/10/2021 14:08:26 Reason for Referral None Reported. Problems Name Problem SNOMED Code Status Onset Date Resolution Date Notes Provider Name and Address Organization Details Recorded Time Psoriasis vulgaris 933779727 Active 2021 Tyrell López MD [address], [place], [phone] [place] [address] Dermatology 14:43:09 Taking medication for chronic disease 2460214331750 01 Active 2021 Tyrell López MD [address], [place], [phone], [facility] Dermatology 2 14:43:12 Problem Notes None recorded. Medical Equipment None Reported. Allergies Allergen ID Allergen Name Allergen Category Reaction Reaction Severity Criticality Documentation Date Start Date Code Code System Note Provider Name and Address Organization Details Recorded Time 328 acetamino phen / hydrocodo ne medicatio n Not available Not available Not available 08/12/2017 47707 2 RxNorm Leanne Ochoa [facility] Dermatology 8 11:08:17 Medications Name Sig Start Date Stop Date Status Note LastModified by Organization Details LastModified Time amantadine HCl 100 mg tablet 04/22 completed Not Available Not Available Not Available amoxicillin 500 mg capsule TAKE 1 CAPSULE BY MOUTH EVERY 6 HOURS active Not Available Not Available No t Available nystatin 100,000 unit/mL oral suspension 04/22 completed Not Available Not Available Not Available prednisone 10 mg tablet 04/22 completed Not Available Not Available Not Available triazolam 0.25 mg tablet TAKE 1 TABLET BY MOUTH 90 MINUTES PRIOR TO APPOINTME NT active Not Available Not Available No t Available triamcinolo ne acetonide 0.5 % topical cream 04/22 completed Not Available Not Available Not Available atorvastati n 10 mg tablet TAKE 1 TABLET BY MOUTH DAILY active Not Available Not Available No t Available ofloxacin 0.3 % eye drops 03/19 completed Not Available Not Available Not Available hydrocodone 5 mg-acetamin ophen 325 mg tablet 03/19 completed Not Available Not Available Not Available ondansetron HCl 8 mg tablet 03/19 completed Not Available Not Available Not Available ondansetron HCl 4 mg tablet 04/22 completed Not Available Not Available Not Available prednisone 20 mg tablet 04/22 completed Not Available Not Available Not Available clonazepam 0.5 mg tablet TAKE 1 TABLET BY MOUTH IN THE MORNING AND 2 TABLETS AT NIGHT active Not Available Not Available No t Available clobetasol 0.05 % topical cream APPLY A THIN APPLICATI ON ONTO THE AFFECTED AREA(S) TWICE DAILY.NEV ER TO FACE active Not Available Not Available No t Available meclizine 12.5 mg tablet active Not Available Not Available Not Available phentermine 37.5 mg tablet TAKE 1 TABLET BY MOUTH DAILY active Not Available Not Available No t Available acetaminoph en 300 mg-codeine 30 mg tablet TAKE 1-2 TABLETS BY MOUTH EVERY 4-6 HOURS. MAX 10 TABS/24 HRS active Not Available Not Available No t Available prochlorper azine maleate 10 mg tablet 04/22 completed Not Available Not Available Not Available sulfamethox azole 800 mg-trimetho prim 160 mg tablet 04/22 completed Not Available Not Available Not Available lidocaine-p rilocaine 2.5 %-2.5 % topical cream 04/22 completed Not Available Not Available Not Available baclofen 20 mg tablet active Not Available Not Available No t Available ketorolac 10 mg tablet 04/22 completed Not Available Not Available Not Available ketorolac 0.5 % eye drops active Not Available Not Available Not Available oxycodone-a cetaminophe n 5 mg-325 mg tablet 03/19 completed Not Available Not Available Not Available prednisolon e acetate 1 % eye drops,suspe nsion 03/19 completed Not Available Not Available Not Available modafinil 200 mg tablet 04/22 completed Not Available Not Available Not Available acitretin 25 mg capsule TAKE 1 CAPSULE BY MOUTH EVERY DAY 03/19 completed Not Available Not Available Not Available benzonatate 100 mg capsule TAKE 1 CAPSULE BY MOUTH THREE TIMES A DAY NEEDED FOR COUGH active Not Available Not Available No t Available cephalexin 500 mg capsule TAKE 1 CAPSULE BY MOUTH EVERY 6 HOURS active Not Available Not Available No t Available oseltamivir 75 mg capsule 03/19 completed Not Available Not Available Not Available triamcinolo ne acetonide 0.1 % topical ointment APPLY A THIN LAYER TO THE AFFECTED AREA(S) BY TOPICAL ROUTE 2 TIMES PER DAY. NEVER TO FACE. active Not Available Not Available No t Available losartan 25 mg tablet TAKE 1 TABLET BY MOUTH ONCE DAILY active Not Available Not Available No t Available gabapentin 300 mg capsule active Not Available Not Available Not Available montelukast 10 mg tablet TAKE 1 TABLET BY MOUTH EVERY DAY active Not Available Not Available No t Available ergocalcife rol (vitamin D2) 1,250 mcg (50,000 unit) capsule TAKE 1 CAPSULE BY MOUTH ONCE MONTHLY active Not Available Not Available No t Available levofloxaci n 500 mg tablet 04/22 completed Not Available Not Available Not Available methylpredn isolone 4 mg tablets in a dose pack 04/22 completed Not Available Not Available Not Available albuterol sulfate HFA 90 mcg/actuati on aerosol inhaler INHALE 1 PUFF BY MOUTH EVERY 4 HOURS NEEDED FOR SHORTNESS OF BREATH OR WHEEZING active Not Available Not Available No t Available betamethaso ne dipropionat e 0.05 % topical ointment APPLY TO AREAS OF PSORIASIS TWICE A DAY SPARINGLY . NEVER TO FACE. active Not Available Not Available No t Available clobetasol 0.05 % scalp solution APPLY TO THE AFFECTED SCALP AREA BY TOPICAL ROUTE ONCE A DAY. NEVER TO FACE. active Not Available Not Available No t Available fluticasone propionate 50 mcg/actuati on nasal spray,suspe nsion active Not Available Not Available Not Available metformin ER 500 mg tablet,exte nded release 24 hr TAKE 4 TABLETS BY MOUTH ONCE EVERY DAY IN THE EVENING active Not Available Not Available No t Available dicyclomine 10 mg capsule TAKE 1 CAPSULE BY MOUTH 4 TIMES A DAY NEEDED FOR ABDOMINAL DISCOMFOR T active Not Available Not Available No t Available naproxen 500 mg tablet 03/19 completed Not Available Not Available Not Available amoxicillin 875 mg-potassiu m clavulanate 125 mg tablet TAKE 1 TABLET BY MOUTH TWICE A DAY UNTIL GONE active Not Available Not Available No t Available oxycodone 5 mg tablet 04/22 completed Not Available Not Available Not Available bupropion HCl XL 300 mg 24 hr tablet, extended release TAKE 1 TABLET BY MOUTH EVERY DAY FOR 30 DAYS active Not Available Not Available No t Available bupropion HCl XL 150 mg 24 hr tablet, extended release TAKE 1 TABLET BY MOUTH EVERY DAY IN THE MORNING active Not Available Not Available No t Available clobetasol 0.05 % shampoo active Not Available Not Available Not Available duloxetine 30 mg capsule,del ayed release 04/22 completed Not Available Not Available Not Available duloxetine 60 mg capsule,del ayed release TAKE 1 CAPSULE BY MOUTH TWICE A DAY active Not Available Not Available No t Available pregabalin 50 mg capsule 03/19 completed Not Available Not Available Not Available Tysabri 04/22 completed Not Available Not Available Not Available Symbicort 160 mcg-4.5 mcg/actuati on HFA aerosol inhaler INHALE 2 PUFFS BY MOUTH EVERY 12 HOURS active Not Available Not Available No t Available GaviLyte-N 420 gram oral solution 04/22 completed Not Available Not Available Not Available ciprofloxac in 0.2 % ear drops in a dropperette 03/19 completed Not Available Not Available Not Available Tecfidera 120 mg (14)-240 mg (46) capsule,del ayed release 04/22 completed Not Available Not Available Not Available Tecfidera 240 mg capsule,del ayed release 03/19 completed Not Available Not Available Not Available Breo Ellipta 100 mcg-25 mcg/dose powder for inhalation USE 1 INHALATIO N ONCE EVERY 24 HOURS active Not Available Not Available No t Available Farxiga 10 mg tablet 03/19 completed Not Available Not Available Not Available Otezla 30 mg tablet Take 1 tablet twice a day by oral route. active Not Available Not Available No t Available Jardiance 10 mg tablet 04/22 completed Not Available Not Available Not Available Linzess 72 mcg capsule 04/22 completed Not Available Not Available Not Available Shingrix (PF) 50 mcg/0.5 mL intramuscul ar suspension, kit active Not Available Not Available Not Available Flucelvax Quad (PF) 60 mcg (15 mcg x 4)/0.5 mL IM syringe 04/22 completed Not Available Not Available Not Available Flucelvax Quad 60 mcg (15 mcg x 4)/0.5 mL intramuscul ar susp active Not Available Not Available Not Available Kesimpta Pen 20 mg/0.4 mL subcutaneou s pen injector active Not Available Not Available Not Available Vtama 1 % topical cream active Not Available Not Available Not Available Vitals None Recorded Social History None recorded. Functional Status None recorded. Mental Status None recorded. Family History Nothing Reported. Medical History No medical history recorded. Gynecological HistoryNo gynecological history recorded. Obstetrics History GPAL:G 0 P 0 0 0 0 Past Encounters Encounter ID Performer Location Encounter Start Date Encounter Closed Date Diagnosis/Indication Diagnosis SNOMED-CT Code Diagnosis ICD10 Code Diagnosis Note [id number] Tyrell López MD Main Office [address] [facility] [address] [place] [phone] 09/14/2021 11:55:55 10/21/2021 16:54:12 Psoriasis vulgaris 825844237 L40.0 Health Concerns Section Related Observation LastModified by Organization Cora ramirez LastModified Time None Recorded Concern Status LastModified by Organization Details LastModified Time None Recorded Advance Directives Directive None Recorded Payers Encounter Date Sequence Insurance Name Policy Number Policy Castro Covered Member ID Castro Member ID Guarantor Name 09/14/2021 2 MEDICARE [place]: WPS Desirae Ballesteros [id number] Desirae Ballesteros 09/14/2021 1 [employer] (POS) [id number] Dheeraj Ballesteros [id number] Desirae Ballesteros Notes Date Note Type Note Provider Name and Address Organization Details Recorded Time 09/14/2021 text/html FU PSORIASIS. LEGS, ELBOWS SCALP.NEEDS RFS ON THE CLOB CREAM, HAS DAVID SCALP.Doing well overall than prior to Otezla but has been out of Otezla for awhile. Needs med. Tyrell López MD [address] [facility] [address], [place], [address], [facility] Dermatology 10/21/2021 16:51:22 OBGyn Episode No OBEpisode recorded.
--- OUTSIDE RECORDS SUMMARY | 2024-05-02 14:21 | XMS_ITS | Encounter Summary ---
Author Organization [facility] Healthcare Address [address] [place] [address] Care Team Providers Care Principal Cyber Engineer Name Role Phone Arthur Landon MD Primary Care Provider Reason for Visit * Diagnostic Imaging (Routine) - Closed Specialty Diagnoses / Procedures Referred By Contac t Referred To Contact Procedures Breast Imaging Screening Outside Reference Transcribed Order, Provider Referral ID Status Reason Start Date Expiration Date Visits Re quested Visits Authorized [id number] Closed 01/08/2023 02/07/2024 1 1 Encounter Details Date Type Department Care Team (Late st Contact Info) Description 01/19/2020 Hospital Encounter [facility] [address] [place] [id number] Social History Tobacco Use Types Packs/Day Years Used Date Smoking Tobacco: Never Smokeless Tobacco: Never Alcohol Use Standard Drinks/Week Comments No 0 (1 standard drink = 0.6 oz pur e alcohol) Comments No Sex and Gender Information Value Date Recorded Sex Assigned at Not on file Legal 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 Gender Identity Female 11/20/2023 11:28 AM CDT Sexual Orientation Straight 11/20/2023 11 :28 AM CDT documented as of this encounter Plan of Treatment Not on file documented as of this encounter Procedures Procedure Name Priority Date/Time Associated Diagnosis Comments BREAST IMAGING MG SCREENING OUTSIDE REFERENCE Routine 01/19/2020 12:00 AM SKI EDGE PAINTER documented in this encounter Results * Breast Imaging Screening Outside Reference (01/19/2020 12:00 AM SKI EDGE PAINTER) Impressions [facility] - 01/08/2023 11:25 AM SKI EDGE PAINTER These images are for Reference purposes only and have not been reviewed by [facility]. There will be no report generated by a [facility]iologist. Narrative [facility] - 01/08/2023 11:25 AM SKI EDGE PAINTER EXAMINATION: Images For Reference Purposes Only us Provider Transcribed Order IMG MAMMO PROCEDURES Final Result [facility] documented in this encounter Visit Diagnoses Not on filedocumented in this encounter Care Teams Principal Cyber Engineer Relationship Specialty Start Date End Date Arthur Landon MD [address] [facility] [address] [place] [address] PCP - General 05/17/16 12/15/22 documented as of this encounter
--- OUTSIDE RECORDS SUMMARY | 2024-05-02 14:22 | XMS_ITS | Continuity of Care Document ---
Author Organization [facility]. If a dditional information is needed, contact Health Information Management at [phone] Address [address] [place] [address] Phone Care Team Providers Care Air Brake Rigger Name Role Phone Unavailable Unavailable Unavailable Unavailable Unavailable Unavailable Unavailable Unavailable Unavailable Problems Laceration of forearm Onset:24-Oct-2019 Elida MELENDEZ Fall Onset:24-Oct-2019 Elida MELENDEZ Allergies and Adverse Reactions Hydrocodone(Allergy) Onset: 24-Oct-2019 Reaction:nausea clarithromycin(Allergy) Onset: 24-Oct-2019 Reaction:unk Medications CALTRATE 600 PLUS;1 TABLET P O DAILY Start:24-Oct-2019 Comments:1 TAB PO DAILY DAILY MULTIVITAMIN-MINERALS; 1 TABLET PO DAILY Start:24-Oct-2019 Comments:1 TAB PO DAILY DULoxetine 60 MG Delayed Rel ease Oral Capsule;60 MILLIGRAM PO BID Start:24-Oct-2019 Comments:60 MG PO BID apremilast 30 MG Oral Tablet [Otezla];30 MILLIGRAM PO BID Start:24-Oct-2019 Comments:30 MG PO BID baclofen 20 MG Oral Tablet;2 0 MILLIGRAM PO BID Start:24-Oct-2019 Comments:20 MG PO BID gabapentin 600 MG Oral Table t [Neurontin];600 MILLIGRAM PO BID Start:24-Oct-2019 Comments:600 MG PO BID dapagliflozin 10 MG Oral Tab let [Farxiga];10 MILLIGRAM PO QAM Start:24-Oct-2019 Comments:10 MG PO QAM atorvastatin 10 MG Oral Tabl et;10 MILLIGRAM PO BEDTIME Start:24-Oct-2019 Comments:10 MG PO BEDTIME METFORMIN;400 MILLIGRAM PO B EDTIME Start:24-Oct-2019 Comments:400 MG PO BEDTIME Social History Smoking Status Never smoked tobacco Recorded: 24-Oct-2019
--- OUTSIDE RECORDS SUMMARY | 2024-05-02 14:22 | XMS_ITS | Patient Health Record ---
Author Organization [facility] Address [address] [place] [address] Care Team Providers Care Loom Changer Name Role Phone Cody Rice Unavailable [phone] Migration, Provider Unavailable Unavailable Allergies Allergen (clinical drug ingredient) Drug/Non Drug Allergy documented on EMR Reaction Allergy Type Onset Date Status Lortab Unknown Drug Allergy 05/22/2022 Active Reason For Referral No Information Medications Medication SIG (Take, Route, Frequency, Duration) Notes Start Date End Date Status clonazePAM 0.5 MG Oral prescribed by neurology 06/24/2023 Active Paxlovid (300/100) 20 x 150 MG & 10 x 100MG Oral *Reorder from [facility] for eRx and Interaction Alerts* 06/24/2023 Active Ozempic (0.25 or 0.5 MG/DOSE) 2 MG/3ML Subcutaneous *Pick strength-form from [facility] for eRX* 06/24/2023 Active Symbicort 160-4.5 MCG/ACT Inhalation 06/24/2023 Active prednisoLONE Acetate 1 % Ophthalmic 06/24/2023 Active Gabapentin 300 MG Oral 06/24/2023 A ctive Montelukast Sodium 10 MG Oral 06/24/2023 Active ProAir HFA 108 (90 Base) MCG/ACT Inhalation 06/24/2023 Active Otezla 30 MG Oral 06/24/2023 Active BinaxNOW COVID-19 Ag Card In Vitro *Reorder from [facility] for eRx and Interaction Alerts* 06/24/2023 Active Breo Ellipta 100-25 MCG/INH Inhalation 06/24/2023 Active Benzonatate 200 MG Oral 06/24/2023 Active Fluticasone Propionate Diskus 50 MCG/ACT Inhalation *Reorder from [facility] for eRx and Interaction Alerts* 06/24/2023 Active Farxiga 10 MG Oral 06/24/2023 Activ e metFORMIN HCl ER 500 MG Oral 06/24/2023 Active Auvelity 45-105 MG TAKE 1 TABLET BY MOUTH TWICE A DAY for 45 Active Auvelity 45-105 MG 1 TABLET Oral TWICE A DAY for 90 days Active KESIMPTA PEN 20 MG/0.4 ML SUBCUTANEOUS PEN INJECTOR *Reorder from [facility] for eRx and Interaction Alerts* 06/24/2023 Active Benzonatate 100 MG Oral 06/24/2023 Active Meclizine HCl 12.5 MG Oral 06/24/2023 Active Clobetasol Propionate 0.05 % External 06/24/2023 Active Mounjaro 2.5 MG/0.5ML Subcutaneous *Reorder f rom [facility] for eRx and Interaction Alerts* 06/24/2023 Active Baclofen 20 MG Oral 06/24/2023 Acti ve Dicyclomine HCl 10 MG Oral 06/24/2023 Active DULoxetine HCl 60 MG Oral prescribed by neurolgy 06/24/2023 Active Atorvastatin Calcium 10 MG Oral 06/24/2023 Active Losartan Potassium 25 MG Oral 06/24/2023 Active DEXCOM G6 MISCELLANEOUS *Reorder from [facility] for eRx and Interaction Alerts* 06/24/2023 Active methylPREDNISolone 4 MG Oral 06/24/2023 Active Pregabalin 50 MG Oral 06/24/2023 Ac tive MARIJUANA (CANNABIS) ORAL EDIBLE *Reorder from [facility] for eRx and Interaction Alerts* 06/24/2023 Active Ergocalciferol 1.25 MG (65888 UT) Oral 06/24/2023 Active Triazolam 0.25 MG Oral 06/24/2023 A ctive Clobetasol Propionate 0.05% External 06/24/2023 Active Nitrofurantoin Monohyd Macro 100 MG Oral 06/24/2023 Active Shingrix 50 mcg/0.5 mL Intramuscular 06/24/2023 Active VUMERITY 231 MG CAPSULE,DELAYED RELEASE *Reorder from [facility] for eRx and Interaction Alerts* 06/24/2023 Active VTAMA 1 % TOPICAL CREAM *Reorder from [facility] for eRx and Interaction Alerts* 06/24/2023 Active Immunizations Vaccine Route Administration Date Status Comme nts Influenza virus vaccine, quadrivalent (IIV4), split virus, 0.25 mL dosage Unknown 12/21/2014 Administered Influenza virus vaccine, quadrivalent (IIV4), split virus, 0.25 mL dosage Unknown 12/03/2018 Administered Influenza, injectable, MDCK, preservative free Unknown 02/05/2023 Administered Influenza, seasonal, injecta ble, preservative free, 3 yrs and above Unknown 01/18/2013 Administered Influenza, seasonal, injecta ble, preservative free, 3 yrs and above Unknown 12/14/2013 Administered Influenza, unspecified formulation Unknown 11/17/2017 A dministered Pfizer Biontech Covid-19 Vac cine 2nd dose Unknown 05/22/2020 Administered Pfizer Biontech Covid-19 Vac cine 2nd dose Unknown 06/12/2020 Administered Pfizer Biontech Covid-19 Vac cine 2nd dose Unknown 01/24/2021 Administered Pneumococcal polysaccharide PPV23 Unknown 02/17/2001 Ad ministered Pneumococcal polysaccharide PPV23 Unknown 02/05/2023 Ad ministered Tdap Unknown 04/28/2019 Administered Zoster Unknown 11/16/2018 Administered Social History Sex Assigned At : Social History Observation Description Sex Assigned At Female Problems Problem Type SNOMED Code ICD Code Onset Dates Problem Status W/U Status Risk Notes Problem Mild recurrent major depression (07670398) Major depressive disorder, recurrent, mild (F33.0) Active confirmed Problem Generalized anxiety disorder (89475207) Generalized anxiety disorder (F41.1) Active confirmed Problem Posttraumatic stress disorder (74040176) Post-traumatic stress disorder, chronic (F43.12) Active confirmed Problem Insomnia disorder related to another mental disorder (72347950) Insomnia due to other mental disorder (F51.05) Active confirmed Vital Signs Heart Rate 118 /min 03/02/2024 Blood pressure diastolic 75 mm Hg 03/02/2024 Height-cm 172.72 cm 03/02/2024 Weight-kg 83.91 kg 03/02/2024 Height 68.00 in 03/02/2024 Blood pressure systolic 114 mm Hg 03/02/2024 Weight 185 lbs 03/02/2024 BMI 28.13 kg/m2 03/02/2024 Encounters Encounter Location Date Provider Diagnosis [facility] [address] [address] 05/27/2023 Cody Rice [facility] [address] [address] 06/24/2023 Codynelly Rice Generalized anxiety disorder F41.1 ; Major depressive disorder, recurrent, moderate F33.1 and Insomnia due to other mental disorder F51.05 [place] [address] [facility] [address] [address] 09/04/2023 Codynelly Rice Generalized anxiety disorder F41.1 ; Major depressive disorder, recurrent, mild F33.0 ; Insomnia due to other mental disorder F51.05 and Post-traumatic stress disorder, chronic F43.12 [facility] [address] [address] 03/02/2024 Cody Rice Generalized anxiety disorder F41.1 ; Major depressive disorder, recurrent, mild F33.0 ; Insomnia due to other mental disorder F51.05 and Post-traumatic stress disorder, chronic F43.12 [place] [address] [address] 05/27/2023 Provider Migration [facility] [address] [address] 06/12/2023 Provider Migration [place] [address] [address] 06/24/2023 Provider Migration [place] [address] [address] 07/05/2023 Provider Migration [place] [address] [address] 07/06/2023 Provider Migration [facility], [facility] [address] [address] 10/14/2023 Cody Rice Major depressive disorder, recurrent, mild F33.0 Assessments Encounter Date Diagnosis (ICD Code) Assessment Notes Treatment Notes Treatment Clinical Notes Section Notes 06/24/2023 Major depressive disorder, recurrent, moderate (ICD-10 - F33.1) 06/24/2023 Generalized anxiety disorder (ICD-10 - F41.1) 06/24/2023 Insomnia due to other mental disorder (ICD-10 - F51.05) 03/02/2024 Generalized anxiety disorder (ICD-10 - F41.1) on clonazepam by neurologist 10/14/2023 Major depressive disorder, recurrent, mild (ICD-10 - F33.0) 09/04/2023 Major depressive disorder, recurrent, mild (ICD-10 - F33.0) cont Auvelity 45mg -105mg bid, on Duloxetine 60mg bid by neurolgist 1. Mood fluctuations and stress related to life events: - Patient reports improvement in mood over the past month due to family vacations and increased activity. However, there are ongoing stressors related to daughter's college transition and recent ADHD diagnosis. Plan: - Continue current medications: Cymbalta and bupropion - Encourage patient to maintain increased activity levels and engage in stress-reducing activities - Schedule follow-up appointment in 6 months to reassess mood and stress levels 2. Sleep disturbances: - Patient reports mild difficulty falling asleep but has seen some improvement due to increased daytime activity. Plan: - Encourage patient to maintain a consistent sleep schedule and practice good sleep hygiene - Monitor sleep quality during follow-up appointments 3. Pharmacy and follow-up: - Patient uses [facility] pharmacy for medication refills - Schedule follow-up appointment in 6 months to reassess patient's overall health and medication management 09/04/2023 Generalized anxiety disorder (ICD-10 - F41.1) on clonazepam by neurologist 1. Mood fluctuations and stress related to life events: - Patient reports improvement in mood over the past month due to family vacations and increased activity. However, there are ongoing stressors related to daughter's college transition and recent ADHD diagnosis. Plan: - Continue current medications: Cymbalta and bupropion - Encourage patient to maintain increased activity levels and engage in stress-reducing activities - Schedule follow-up appointment in 6 months to reassess mood and stress levels 2. Sleep disturbances: - Patient reports mild difficulty falling asleep but has seen some improvement due to increased daytime activity. Plan: - Encourage patient to maintain a consistent sleep schedule and practice good sleep hygiene - Monitor sleep quality during follow-up appointments 3. Pharmacy and follow-up: - Patient uses [facility] pharmacy for medication refills - Schedule follow-up appointment in 6 months to reassess patient's overall health and medication management 03/02/2024 Major depressive disorder, recurrent, mild (ICD-10 - F33.0) cont Auvelity 45mg -105mg bid, on Duloxetine 60mg bid by neurolgist 09/04/2023 Insomnia due to other mental disorder (ICD-10 - F51.05) 1. Mood fluctuations and stress related to life events: - Patient reports improvement in mood over the past month due to family vacations and increased activity. However, there are ongoing stressors related to daughter's college transition and recent ADHD diagnosis. Plan: - Continue current medications: Cymbalta and bupropion - Encourage patient to maintain increased activity levels and engage in stress-reducing activities - Schedule follow-up appointment in 6 months to reassess mood and stress levels 2. Sleep disturbances: - Patient reports mild difficulty falling asleep but has seen some improvement due to increased daytime activity. Plan: - Encourage patient to maintain a consistent sleep schedule and practice good sleep hygiene - Monitor sleep quality during follow-up appointments 3. Pharmacy and follow-up: - Patient uses [facility] pharmacy for medication refills - Schedule follow-up appointment in 6 months to reassess patient's overall health and medication management 03/02/2024 Insomnia due to other mental disorder (ICD-10 - F51.05) 09/04/2023 Post-traumatic stress disorder, chronic (ICD-10 - F43.12) 1. Mood fluctuations and stress related to life events: - Patient reports improvement in mood over the past month due to family vacations and increased activity. However, there are ongoing stressors related to daughter's college transition and recent ADHD diagnosis. Plan: - Continue current medications: Cymbalta and bupropion - Encourage patient to maintain increased activity levels and engage in stress-reducing activities - Schedule follow-up appointment in 6 months to reassess mood and stress levels 2. Sleep disturbances: - Patient reports mild difficulty falling asleep but has seen some improvement due to increased daytime activity. Plan: - Encourage patient to maintain a consistent sleep schedule and practice good sleep hygiene - Monitor sleep quality during follow-up appointments 3. Pharmacy and follow-up: - Patient uses [facility] pharmacy for medication refills - Schedule follow-up appointment in 6 months to reassess patient's overall health and medication management 03/02/2024 Post-traumatic stress disorder, chronic (ICD-10 - F43.12) 03/02/2024 Other 1. Major Depressive Disorder : - Continue taking Auvelity as prescribed - Engage in cognitive behavioral therapy (CBT) and dialectical behavioral therapy (DBT) as recommended by Usha Malagon LCSW Plan: - Monitor response to therapy and medication - Follow up in three months or sooner if needed 2. Generalized Anxiety Disorder (LEONIDAS): - Continue taking clonazepam as prescribed by neurologist - Engage in CBT and DBT as recommended by Usha Malagon LCSW Plan: - Consider adding hydroxyzine if anxiety worsens and patient agrees - Monitor response to therapy and medication - Follow up in three months or sooner if needed 3. Sleep Disturbance: - Continue taking 10 mg of melatonin for sleep Plan: - Monitor sleep quality and discuss with provider if sleep issues persist 4. Stress Management: - Engage in CBT and DBT to address stressors related to finances, family, and health Plan: - Encourage open communication with family members to address household concerns - Follow up in three months or sooner if needed Plan Of Treatment Next Appt Details Provider Name:Cody dos santos, 05/25/2024 02:00:00 PM, [address] [facility] [address], [facility] [address], [place], [address], Insurance Providers Payer Name Payer Address Payer Phone Subscriber Number Group Number Insured Name Patient Relationship to Insured Coverage Start Date Coverage End Date [employer] Pos [address] [place] [address] [id number] [employer] Spouse - patient is the spouse of the insured Medicare- [place] Medicare [address] [place] [address] [id number] LINA [employer] Self - patient is the insured Medical (General) History Medical History History ICD Code Problems: Chronic post-traumatic stress disorder Generalized anxiety disorder Insomnia disorder related to another men ana disorder Mild recurrent major depression Moderate recurrent major depression Multiple sclerosis Other chronic pain , Surgical History Surgery Date(Month/Year) Any surgical history 02/17/2018 Removal of gallbladder (78041) 3 Endometrial ablation (73494) 08/17/2006 Cataract surgery (44454) 02/16/2020
--- OUTSIDE RECORDS SUMMARY | 2024-05-02 14:22 | XMS_ITS ---
Author Organization [facility] As Synchronized Address [address] [facility] [address] [place] [address] Care Team Providers Care Wastewater Engineer Name Role Phone Cody Rice Unavailable [phone] Allergies Allergen (clinical drug ingredient) Drug/Non Drug Allergy documented on EMR Reaction Allergy Type Onset Date Status Lortab Unknown Drug Allergy 05/22/2022 Active REASON FOR VISIT Follow_up medication eval Medications Medication SIG (Take, Route, Frequency, Duration) Notes Start Date End Date Status Atorvastatin Calcium 10 MG Oral 06/24/2023 Active DEXCOM G6 MISCELLANEOUS *[facility] and Interaction Alert[facility]* 06/24/2023 Active Farxiga 10 MG Oral 06/24/2023 Activ e Auvelity 45-105 MG TAKE 1 TABLET BY MOUTH TWICE A DAY for 45 Active KESIMPTA PEN 20 MG/0.4 ML SUBCUTANEOUS PEN INJECTOR *[facility] for [facility] and Interaction Alerts* 06/24/2023 Active Mounjaro 2.5 MG/0.5ML Subcutaneous *[facility]* 06/24/2023 Active Dicyclomine HCl 10 MG Oral 06/24/2023 Active Pregabalin 50 MG Oral 06/24/2023 Ac tive Clobetasol Propionate 0.05% External 06/24/2023 Active Shingrix 50 mcg/0.5 mL Intramuscular 06/24/2023 Active Ozempic (0.25 or 0.5 MG/DOSE) 2 MG/3ML Subcutaneous *Pick strength[facility]form [facility] for eRX* 06/24/2023 Active ProAir HFA 108 (90 Base) MCG/ACT Inhalation 06/24/2023 Active Ergocalciferol 1.25 MG (26824 UT) Oral 06/24/2023 Active VUMERITY 231 MG CAPSULE,DELAYED RELEASE *Reorder from [facility] for eRx and Interaction Alerts* 06/24/2023 Active VTAMA 1 % TOPICAL CREAM *Reorder from [facility] for eRx and Interaction Alerts* 06/24/2023 Active prednisoLONE Acetate 1 % Ophthalmic 06/24/2023 Active Gabapentin 300 MG Oral 06/24/2023 A ctive Otezla 30 MG Oral 06/24/2023 Active Benzonatate 200 MG Oral 06/24/2023 Active Fluticasone Propionate Diskus 50 MCG/ACT Inhalation *Reorder from [facility] for eRx and Interaction Alerts* 06/24/2023 Active Benzonatate 100 MG Oral 06/24/2023 Active Meclizine HCl 12.5 MG Oral 06/24/2023 Active BinaxNOW COVID-19 Ag Card In Vitro *Reorder from [facility] for eRx and Interaction Alerts* 06/24/2023 Active Breo Ellipta 100-25 MCG/INH Inhalation 06/24/2023 Active metFORMIN HCl ER 500 MG Oral 06/24/2023 Active Clobetasol Propionate 0.05 % External 06/24/2023 Active Baclofen 20 MG Oral 06/24/2023 Acti ve DULoxetine HCl 60 MG Oral prescribed by neurolgy 06/24/2023 Active Losartan Potassium 25 MG Oral 06/24/2023 Active Auvelity 45-105 MG 1 TABLET Oral TWICE A DAY for 90 days Active Symbicort 160-4.5 MCG/ACT Inhalation 06/24/2023 Active methylPREDNISolone 4 MG Oral 06/24/2023 Active MARIJUANA (CANNABIS) ORAL EDIBLE *Reorder from [facility] for eRx and Interaction Alerts* 06/24/2023 Active Triazolam 0.25 MG Oral 06/24/2023 A ctive Nitrofurantoin Monohyd Macro 100 MG Oral 06/24/2023 Active clonazePAM 0.5 MG Oral prescribed by neurology 06/24/2023 Active Paxlovid (300/100) 20 x 150 MG & 10 x 100MG Oral *Reorder from [facility] for eRx and Interaction Alerts* 06/24/2023 Active Montelukast Sodium 10 MG Oral 06/24/2023 Active Social History Sex Assigned At : Social History Observation Description Sex Assigned At Female Problems Problem Type SNOMED Code ICD Code Onset Dates Problem Status W/U Status Risk Notes Problem Generalized anxiety disorder (34497677) Generalized anxiety disorder (F41.1) Active confirmed Problem Mild recurrent major depression (05226894) Major depressive disorder, recurrent, mild (F33.0) Active confirmed Problem Insomnia disorder related to another mental disorder (06559975) Insomnia due to other mental disorder (F51.05) Active confirmed Problem Posttraumatic stress disorder (34784794) Post-traumatic stress disorder, chronic (F43.12) Active confirmed Vital Signs Blood pressure systolic 114 mm Hg 03/02/19 25 Blood pressure diastolic 75 mm Hg 025 Heart Rate 118 /min 03/02/2024 Height 68.00 in 03/02/2024 Weight 185 lbs 03/02/2024 BMI 28.13 kg/m2 03/02/2024 Height-cm 172.72 cm 03/02/2024 Weight-kg 83.91 kg 03/02/2024 Encounters Encounter Location Date Provider Diagnosis [facility] [place] [address] [address] 03/02/2024 Cody Rice Generalized anxiety disorder F41.1 ; Major depressive disorder, recurrent, mild F33.0 ; Insomnia due to other mental disorder F51.05 and Post-traumatic stress disorder, chronic F43.12 Assessments Encounter Date Diagnosis (ICD Code) Assessment Notes Treatment Notes Treatment Clinical Notes Section Notes 03/02/2024 Generalized anxiety disorder (ICD-10 - F41.1) on clonazepam by neurologist 03/02/2024 Major depressive disorder, recurrent, mild (ICD-10 - F33.0) cont Auvelity 45mg -105mg bid, on Duloxetine 60mg bid by neurolgist 03/02/2024 Insomnia due to other mental disorder (ICD-10 - F51.05) 03/02/2024 Post-traumatic stress disorder, chronic (ICD-10 - [...] or sooner if needed Plan Of Treatment Medication Medication Name Sig Start Date Stop Date Notes Auvelity 45-105 MG 1 TABLET Oral TWICE A DAY for 90 days Treatment Notes Assessment Notes Generalized anxiety disorder on clonazep am by neurologist Major depressive disorder, recurrent, mi ld cont Auvelity 45mg -105mg bid, on Duloxetine 60mg bid by neurolgist Next Appt Details Follow Up: 3 Months, Reason: F/U depression, insomnia Provider Name:Cody dos santos, 05/25/2024 02:00:00 PM, [address] [place] [address] [address], [facility] [address], [place], [address], Progress Notes * DEON HOPEOB:1965 ( 59 yo F)Acc No.[id number]:03/02/2024 Patient: LINA MARI Provider: STACIA SANTOYO :1965 A ge:59 Y S ex:Female Date:03/02/2024 Address:[address] [place] [address] [facility] Subjective: * Chief Complaints: * F ollow_up medication eval * HPI: H istory of Presenting Problem: the note is transcribed using speech recognition software. It is a reflection of a visit with the patient. It might have some inaccuracy, including medication names and transcribing errors, though efforts have been made to correct them. Chief complaint- Mood swings, depression symptoms, anxiety. The patient reports experiencing up and down moods and confirms having depression symptoms. She recently completed the JOSE-21 assessment with scores of 22 for depression, 18 for anxiety, and 20 for stress. The patient is experiencing significant anxiety related to financial issues and her daughter, as well as emotional distress due to her 's infidelity. She had a breakdown the previous night and is scheduled for neck surgery to fuse C3 to C4 for a herniated disc. The patient expresses frustration with her sister's forgetfulness and the impact of her and daughter's presence on her living environment. She is currently taking Auvelity, duloxetine twice a day, and clonazepam for her symptoms. The patient acknowledges that the medication initially had a calming effect, and she is able to clear her mind with the help of 10 mg of melatonin. She reports ongoing neck pain and hopes the surgery will provide relief. The patient has been taken off her MS medication, Vumerity, and experiences worsening foot dragging when walking. She is prescribed clonazepam by her neurologist for dizziness, which is exacerbated by stress. The patient takes clonazepam three times a day and finds it helpful for anxiety. She is hesitant to add another medication and believes working with a therapist may be beneficial. The patient's travels for work, and the recent Edd break was particularly challenging for her. Anxiety O nset: years ago. D epression Onset: years ago, Associated Symptoms: wishes she wouldn't wake up. P sychotherapy s tarting counseling with her insurance. D epression Screening: LENOIDAS-7 (2018 Edition) F eeling nervous, anxious, or on edge?Several days. * Medical History: * Surgical History: * Hospitalization/Major Diagno stic Procedure: * Medications: T akingMontelukast Sodium 10 MG Tablet Oral Paxlovid (300/100) 20 x 150 MG & 10 x 100MG Tablet Therapy Pack Oral , Notes to Pharmacist: *Reorder from [facility] for eRx and Interaction Alerts*clonazePAM 0.5 MG Tablet Oral , Notes to Pharmacist: prescribed by neurologySymbicort 160-4.5 MCG/ACT Aerosol Inhalation MARIJUANA (CANNABIS) ORAL EDIBLE , Notes to Pharmacist: *Reorder from [facility] for eRx and Interaction Alerts*methylPREDNISolone 4 MG Tablet Therapy Pack Oral Nitrofurantoin Monohyd Macro 100 MG Capsule Oral Triazolam 0.25 MG Tablet Oral Baclofen 20 MG Tablet Oral Clobetasol Propionate 0.05 % Solution External Losartan Potassium 25 MG Tablet Oral DULoxetine HCl 60 MG Capsule Delayed Release Particles Oral , Notes to Pharmacist: prescribed by neurolgyMeclizine HCl 12.5 MG Tablet Oral Benzonatate 100 MG Capsule Oral metFORMIN HCl ER 500 MG Tablet Extended Release 24 Hour Oral Breo Ellipta 100-25 MCG/INH Aerosol Powder Breath Activated Inhalation BalbiraxZBIGNIEW COVID-19 Ag Card Kit In Vitro , Notes to Pharmacist: *Reorder from [facility] for eRx and Interaction Alerts*Fluticasone Propionate Diskus 50 MCG/ACT Aerosol Powder Breath Activated Inhalation , Notes to Pharmacist: *Reorder from [facility] for eRx and Interaction Alerts*Benzonatate 200 MG Capsule Oral Gabapentin 300 MG Capsule Oral prednisoLONE Acetate 1 % Suspension Ophthalmic Otezla 30 MG Tablet Oral ProAir HFA 108 (90 Base) MCG/ACT Aerosol Solution Inhalation Ozempic (0.25 or 0.5 MG/DOSE) 2 MG/3ML Solution Pen-injector Subcutaneous , Notes to Pharmacist: *Pick strength-form from [facility] for eRX*VTAMA 1 % TOPICAL CREAM , Notes to Pharmacist: *Reorder from [facility] for eRx and Interaction Alerts*VUMERITY 231 MG CAPSULE,DELAYED RELEASE , Notes to Pharmacist: *Reorder from [facility] for eRx and Interaction Alerts*Ergocalciferol 1.25 MG (86503 UT) Capsule Oral Pregabalin 50 MG Capsule Oral Shingrix 50 mcg/0.5 mL Suspension Reconstituted Intramuscular Clobetasol Propionate 0.05% Cream External Dicyclomine HCl 10 MG Capsule Oral Mounjaro 2.5 MG/0.5ML Solution Pen-injector Subcutaneous , Notes to Pharmacist: *Reorder from [facility] for eRx and Interaction Alerts*DEXCOM G6 EACH MISCELLANEOUS , Notes to Pharmacist: *Reorder from [facility] for eRx and Interaction Alerts*Atorvastatin Calcium 10 MG Tablet Oral Farxiga 10 MG Tablet Oral KESIMPTA PEN 20 MG/0.4 ML SUBCUTANEOUS PEN INJECTOR , Notes to Pharmacist: *Reorder from [facility] for eRx and Interaction Alerts*Auvelity 45-105 MG Tablet Extended Release TAKE 1 TABLET BY MOUTH TWICE A DAY Medication List reviewed and reconciled with the patientTaking Montelukast Sodium 10 MG Tablet Oral Taking Paxlovid (300/100) 20 x 150 MG & 10 x 100MG Tablet Therapy Pack Oral , Notes to Pharmacist: *Reorder from [facility] for eRx and Interaction Alerts*Taking clonazePAM 0.5 MG Tablet Oral , Notes to Pharmacist: prescribed by neurologyTaking Symbicort 160-4.5 MCG/ACT Aerosol Inhalation Taking MARIJUANA (CANNABIS) ORAL EDIBLE , Notes to Pharmacist: *Reorder from [facility] for eRx and Interaction Alerts*Taking methylPREDNISolone 4 MG Tablet Therapy Pack Oral Taking Nitrofurantoin Monohyd Macro 100 MG Capsule Oral Taking Triazolam 0.25 MG Tablet Oral Taking Baclofen 20 MG Tablet Oral Taking Clobetasol Propionate 0.05 % Solution External Taking Losartan Potassium 25 MG Tablet Oral Taking DULoxetine HCl 60 MG Capsule Delayed Release Particles Oral , Notes to Pharmacist: prescribed by neurolgyTaking Meclizine HCl 12.5 MG Tablet Oral Taking Benzonatate 100 MG Capsule Oral Taking metFORMIN HCl ER 500 MG Tablet Extended Release 24 Hour Oral Taking Breo Ellipta 100-25 MCG/INH Aerosol Powder Breath Activated Inhalation Taking BinaxNOW COVID-19 Ag Card Kit In Vitro , Notes to Pharmacist: *Reorder from [facility] for eRx and Interaction Alerts*Taking Fluticasone Propionate Diskus 50 MCG/ACT Aerosol Powder Breath Activated Inhalation , Notes to Pharmacist: *Reorder from [facility] for eRx and Interaction Alerts*Taking Benzonatate 200 MG Capsule Oral Taking Gabapentin 300 MG Capsule Oral Taking prednisoLONE Acetate 1 % Suspension Ophthalmic Taking Otezla 30 MG Tablet Oral Taking ProAir HFA 108 (90 Base) MCG/ACT Aerosol Solution Inhalation Taking Ozempic (0.25 or 0.5 MG/DOSE) 2 MG/3ML Solution Pen-injector Subcutaneous , Notes to Pharmacist: *Pick strength- form from [facility] for eRX*Taking VTAMA 1 % TOPICAL CREAM , Notes to Pharmacist: *Reorder from [facility] for eRx and Interaction Alerts*Taking VUMERITY 231 MG CAPSULE,DELAYED RELEASE , Notes to Pharmacist: *Reorder from [facility] for eRx and Interaction Alerts*Taking Ergocalciferol 1.25 MG (32813 UT) Capsule Oral Taking Pregabalin 50 MG Capsule Oral Taking Shingrix 50 mcg/0.5 mL Suspension Reconstituted Intramuscular Taking Clobetasol Propionate 0.05% Cream External Taking Dicyclomine HCl 10 MG Capsule Oral Taking Mounjaro 2.5 MG/0.5ML Solution Pen-injector Subcutaneous , Notes to Pharmacist: *Reorder from [facility] for eRx and Interaction Alerts*Taking DEXCOM G6 EACH MISCELLANEOUS , Notes to Pharmacist: *Reorder from [facility] for eRx and Interaction Alerts*Taking Atorvastatin Calcium 10 MG Tablet Oral Taking Farxiga 10 MG Tablet Oral Taking KESIMPTA PEN 20 MG/0.4 ML SUBCUTANEOUS PEN INJECTOR , Notes to Pharmacist: *Reorder from [facility] for eRx and Interaction Alerts*Taking Auvelity 45-105 MG Tablet Extended Release TAKE 1 TABLET BY MOUTH TWICE A DAY Medication List reviewed and reconciled with the patient * Allergies: L ortab: Allergy - Onset Date 05/22/2022no[Allergies Verified] Objective: * Vitals: B P:114/75mm Hg, HR:118/min, Wt:185lbs, Wt-k.91 kg, Ht: 68.00 in, Ht-cm: 172.72 cm, BMI:28.13Index, Body Surface Area: 2. * Examination: P sychiatry: Appearance: w ell-groomed, well-nourished, walks with a walker. Affect / mood: t earful. Attention: g ood. Attitude: c ooperative. Suicidal ideation: n one. Memory status: n o impairment noted. Degree of awareness of surroundings: w ithin normal limits.? Delusions: n o. Hallucinations: n o. Insight: g ood. Intellectual functioning: n o impairment noted. Judgement: g ood. Orientation: a wake, alert and oriented x 3. Perceptual disorders: n o perceptual disorder noted. Psychomotor activity: w ithin normal range. Speech / language: a ppropriate pitch/modulation, clear and coherent, normal rate, volume, and articulation (RVR), proper grammar used. Thought content: a ppropriate. Thought process: i ntact. w alks with a cane. G eneral Examination: - Mental Status Examination: - Patient reported fluctuating mood with symptoms of depression. - Expressed significant anxiety related to financial issues and personal relationships. - Demonstrated awareness of her mental health needs, engaging in therapy and discussing treatment options. - Exhibited signs of stress and emotional distress during the conversation. - Physical Examination: - Patient reported upcoming neck surgery for a herniated disc, specifically fusion from C3 to C4. - Complaints of neck pain. - Mentioned worsening of foot dragging when walking, related to discontinuation of MS medication (Vumerity). - Diagnostic Test Results and Labs: - JOSE-21 scores as of current consultation with Usha Malagon LCSW: Depression 22, Anxiety 18, Stress 20. Assessment: * Assessment: 1. G eneralized anxiety disorder - F41.1 (Primary) 2 . M ajor depressive disorder, recurrent, mild - F33.0 3 . I nsomnia due to other mental disorder - F51.05 4 . P ost-traumatic stress disorder, chronic - F43.12 Plan: * Treatment: 2. M ajor depressive disorder, recurrent, mild Refill Auvelity Tablet Extended Release, 45-105 MG, 1 TABLET, Oral, TWICE A DAY, 90 days, 180 Tablet, Refills 1. Notes: cont Auvelity 45mg -105mg bid, on Duloxetine 60mg bid by neurolgist 3. O thers Clinical Notes: 1. Major Depressive Disorder : - Continue [...] in three months or sooner if needed * Procedure Codes: 9 6127 BEHAV ASSMT W/SCORE & DOCD/STAND INSTRUMENT * Follow Up: 3 Months (Reason: F/U depression, insomnia) * Billing Information: * Visit Code: 14471 OFFICE OUTPATIENT VISIT 25 MINUTES DETAILED HISTORY AND EXAM/MODERATE MEDICAL DECISION MAKING. * Procedure Codes: 58599 BEHAV ASSMT W/SCORE & DOCD/STAND INSTRUMENT. * [place] Sign off status: Completed true * Provider: STACIA SANTOYO Date: 0 03/02/2024 Generated for Hai pastor/César/eTransmitting on: 0 05/02/2024 02:21 PM CDT History and Physical Notes * HPI (History of Present Illness) Category Sub-Category Detail Notes Category Not es History of Presenting Problem Anxiety Onset: year s ago Depression Onset: years ago, As sociated Symptoms: wishes she wouldn't wake up Psychotherapy starting counseling with her insurance Depression Screening LEONIDAS-7 (2018 Edition) Feelin g nervous, anxious, or on edge: Several days Examination Category Sub-Category Detail Notes Category Not es Psychiatry Appearance: well-groomed, we ll-nourished, walks with a walker walks with a cane Attitude: cooperative Psychomotor activity: within normal rang e Attention: good Degree of awareness of surroundings: wit hin normal limits Orientation: awake, alert and brian ented x 3 Affect / mood: tearful Speech / language: appropriate pitch/mo dulation, clear and coherent, normal rate, volume, and articulation (RVR), proper grammar used Insight: good Judgement: good Thought process: intact Thought content: appropriate Perceptual disorders: no perceptual diso rder noted Suicidal ideation: none Intellectual functioning: no impairment noted Memory status: no impairment noted Delusions: no Hallucinations: no General Examination - Mental Status Examination: - Patient reported fluctuating mood with symptoms of depression. - Expressed significant anxiety related to financial issues and personal relationships. - Demonstrated awareness of her mental health needs, engaging in therapy and discussing treatment options. - Exhibited signs of stress and emotional distress during the conversation. - Physical Examination: - Patient reported upcoming neck surgery for a herniated disc, specifically fusion from C3 to C4. - Complaints of neck pain. - Mentioned worsening of foot dragging when walking, related to discontinuation of MS medication (Vumerity). - Diagnostic Test Results and Labs: - JOSE-21 scores as of current consultation with Usha Malagon LCSW: Depression 22, Anxiety 18, Stress 20.
--- OUTSIDE RECORDS SUMMARY | 2024-05-02 14:22 | XMS_ITS ---
Author Organization [facility] [employer] Address [address] [facility] [address] [place] [address] Care Team Providers Care Obstetric Assistant Name Role Phone Cody Rice Unavailable [phone] Allergies Allergen (clinical drug ingredient) Drug/Non Drug Allergy documented on EMR Reaction Allergy Type Onset Date Status Lortab Unknown Drug Allergy 05/22/2022 Active REASON FOR VISIT follow up visit Medications Medication SIG (Take, Route, Frequency, Duration) Notes Start Date End Date Status Breo Ellipta 100-25 MCG/INH Inhalation 06/24/2023 Active BinaxNOW COVID-19 Ag Card In Vitro *Reorder from [employer] for eRx and Interaction Alerts* 06/24/2023 Active Fluticasone Propionate Diskus 50 MCG/ACT Inhalation *Reorder from [employer] for eRx and Interaction Alerts* 06/24/2023 Active Benzonatate 200 MG Oral 06/24/2023 Active Gabapentin 300 MG Oral 06/24/2023 A ctive Meclizine HCl 12.5 MG Oral 06/24/2023 Active Benzonatate 100 MG Oral 06/24/2023 Active metFORMIN HCl ER 500 MG Oral 06/24/2023 Active Losartan Potassium 25 MG Oral 06/24/2023 Active DULoxetine HCl 60 MG Oral prescribed by neurolgy 06/24/2023 Active Clobetasol Propionate 0.05 % External 06/24/2023 Active methylPREDNISolone 4 MG Oral 06/24/2023 Active Nitrofurantoin Monohyd Macro 100 MG Oral 06/24/2023 Active Triazolam 0.25 MG Oral 06/24/2023 A ctive Baclofen 20 MG Oral 06/24/2023 Acti ve clonazePAM 0.5 MG Oral prescribed by neurology 06/24/2023 Active Symbicort 160-4.5 MCG/ACT Inhalation 06/24/2023 Active MARIJUANA (CANNABIS) ORAL EDIBLE *Reorder from [facility] for eRx and Interaction Alerts* 06/24/2023 Active Paxlovid (300/100) 20 x 150 MG & 10 x 100MG Oral *Reorder from [facility] for eRx and Interaction Alerts* 06/24/2023 Active Farxiga 10 MG Oral 06/24/2023 Activ e KESIMPTA PEN 20 MG/0.4 ML SUBCUTANEOUS PEN INJECTOR *Reorder from [facility] for eRx and Interaction Alerts* 06/24/2023 Active Auvelity 45-105 MG 1 TABLET Oral TWICE A DAY for 30 days Active Atorvastatin Calcium 10 MG Oral 06/24/2023 Active Montelukast Sodium 10 MG Oral 06/24/2023 Active Dicyclomine HCl 10 MG Oral 06/24/2023 Active Mounjaro 2.5 MG/0.5ML Subcutaneous *Reorder f rom [facility] for eRx and Interaction Alerts* 06/24/2023 Active DEXCOM G6 MISCELLANEOUS *Reorder from [facility] for eRx and Interaction Alerts* 06/24/2023 Active Shingrix 50 mcg/0.5 mL Intramuscular 06/24/2023 Active Clobetasol Propionate 0.05% External 06/24/2023 Active Ozempic (0.25 or 0.5 MG/DOSE) 2 MG/3ML Subcutaneous *Pick strength-form from [facility] for eRX* 06/24/2023 Active VTAMA 1 % TOPICAL CREAM *Reorder from [facility] for eRx and Interaction Alerts* 06/24/2023 Active VUMERITY 231 MG CAPSULE,DELAYED RELEASE *Reorder from [facility] for eRx and Interaction Alerts* 06/24/2023 Active Ergocalciferol 1.25 MG (45233 UT) Oral 06/24/2023 Active Pregabalin 50 MG Oral 06/24/2023 Ac tive prednisoLONE Acetate 1 % Ophthalmic 06/24/2023 Active Otezla 30 MG Oral 06/24/2023 Active ProAir HFA 108 (90 Base) MCG/ACT Inhalation 06/24/2023 Active Social History Sex Assigned At : Social History Observation Description Sex Assigned At Female Vital Signs Height 68.00 in 09/04/2023 Height-cm 172.72 cm 09/04/2023 Encounters Encounter Location Date Provider Diagnosis [facility] [employer] [facility] [address] [place] [address] [place] [address] 09/04/2023 Cody Rice Generalized anxiety disorder F41.1 ; Major depressive disorder, recurrent, mild F33.0 ; Insomnia due to other mental disorder F51.05 and Post-traumatic stress disorder, chronic F43.12 Assessments Encounter Date Diagnosis (ICD Code) Assessment Notes Treatment Notes Treatment Clinical Notes Section Notes 09/04/2023 Generalized anxiety disorder (ICD-10 - F41.1) [...] 3. Pharmacy and follow-up: - Patient uses [facility] pharmacy for medication refills - Schedule follow-up appointment in 6 months to reassess patient's overall health and medication management 09/04/2023 Major depressive disorder, recurrent, mild (ICD-10 [...] 3. Pharmacy and follow-up: - Patient uses [facility] pharmacy for medication refills - Schedule follow-up appointment in 6 months to reassess patient's overall health and medication management 09/04/2023 Insomnia due to other mental disorder [...] 3. Pharmacy and follow-up: - Patient uses [facility] pharmacy for medication refills - Schedule follow-up appointment in 6 months to reassess patient's overall health and medication management 09/04/2023 Post-traumatic stress disorder, chronic (ICD-10 - [...] 3. Pharmacy and follow-up: - Patient uses [facility] pharmacy for medication refills - Schedule follow-up appointment in 6 months to reassess patient's overall health and medication management Plan Of Treatment Medication Medication Name Sig Start Date Stop Date Notes Auvelity 45-105 MG 1 TABLET Oral TWICE A DAY for 30 days Treatment Notes Assessment Notes Generalized anxiety disorder on clonazep am by neurologist Major depressive disorder, recurrent, mi ld cont Auvelity 45mg -105mg bid, on Duloxetine 60mg bid by neurolgist Next Appt Details Follow Up: 6 Months, Reason: depression Provider Name:Cody dos santos, 05/25/2024 02:00:00 PM, [facility] [address], [facility] [address], [address], Progress Notes * DEON HOPEOB:1965 ( 58 yo F)Acc No.[id number]:09/04/2023 Patient: LINA MARI Provider: STACIA SANTOYO :1965 A ge:58 Y S ex:Female Date:09/04/2023 Address:[address] [place], [place] [id number] Subjective: * Chief Complaints: * 1 . Follow up visit. * HPI: D epression screening: Chief complaint - Mood fluctuations, difficulty sleeping. The patient reports an overall improvement in mood over the past month, attributing it to family vacations. However, they also mention experiencing mood fluctuations related to their daughter going off to college in [place]. Additionally, the patient has been dealing with stress due to their daughter's recent ADHD diagnosis. Regarding medication, the patient confirms taking Cymbalta twice a day as prescribed by their neurologist and Auvelity 45 mg 105 twice a day for bupropion replacement. They report doing well with this medication regimen. The patient still experiences some difficulty falling asleep, but notes that it has improved due to increased daytime activity. The patient underwent surgery seven weeks ago to replace their neurostimulator and is still in the recovery process. They also mention having dizzy spells, for which they receive medication from their neurologist. The patient confirms using [facility] pharmacy for medication refills. PHQ-9 L ittle interest or pleasure in doing things S everal days, F eeling down, depressed, or hopeless N ot at all, T rouble falling or staying asleep, or sleeping too much S everal days, F eeling tired or having little energy N early every day, P oor appetite or overeating S everal , F eeling bad about yourself or that you are a failure, or have let yourself or your family down S ever, T rouble concentrating on things, such as reading the newspaper or watching television N ot at all, M oving or speaking so slowly that other people could have noticed; or the opposite, being so fidgety or restless that you have been moving around a lot more than usual N ot at all, T houghts that you would be better off or of hurting yourself in some way N ot at all, T otal Score 7 , I nterpretation M ild Depression. D epression Screening: LEONIDAS-7 (2018 Edition) F eeling nervous, anxious, or on edge?Not at all, N ot being able to stop or control worrying N early every day, W orrying too much about different things N early every day, T rouble relaxing S ever, Being so restless that it is hard to sit still S ever, B ecoming easily annoyed or irritable S everal , F eeling afraid as if something awful might happen S ever, T otal LEONIDAS-7 Score 1 0, I f you checked any problems, how difficult have they made it for you to do your work, take care of things at home, or get along with other people? S omewhat difficult, I nterpretation of Total ( 10 to 14) Moderate. [place]-Suicide Severity Rating Scale: Suicide Risk (CSRS-screener) i n the past one month Have you wished you were or wished you could go to sleep and not wake up? Y es, i n the past one month Have you actually had any thoughts of killing yourself? N o. H istory of Presenting Problem: Depression m ild symptoms. * ROS: P sychiatric: Patient complains of a nxiety, depressed mood, stressors.? * Medical History: P roblems: Chronic post-traumatic stress disorder, Generalized anxiety disorder, Insomnia disorder related to another mental disorder, Mild recurrent major depression, Moderate recurrent major depression, Multiple sclerosis, Other chronic pain, ,. * Surgical History: A pa surgical history 02/17/2018, Removal of gallbladder (86413) 04/17/2012, Endometrial ablation (80369) 08/17/2006, Cataract surgery (82334) 02/16/2020. * Family History: F ather: Depressive disorder , Anxiety disorder . M aternal Aunt: Schizophrenia . M other: Diabetes mellitus . S ister: Hypothyroidism . * Social History: M igrated Social History: M igrated Social History: Alcohol Intake: None 12/21/2019,Tobacco Years: Never smoker 12/21/2019. * Medications: T aking Montelukast Sodium 10 MG Tablet Oral , Taking Paxlovid (300/100) 20 x 150 MG & 10 x 100MG Tablet Therapy Pack Oral , Notes to Pharmacist: *[facility]*, Taking clonazePAM 0.5 MG Tablet Oral , Notes to Pharmacist: prescribed by neurology, Taking Symbicort 160-4.5 MCG/ACT Aerosol Inhalation , Taking MARIJUANA (CANNABIS) ORAL EDIBLE , Notes to Pharmacist: *Reorder from [facility] for eRx and Interaction Alerts*, Taking methylPREDNISolone 4 MG Tablet Therapy Pack Oral , Taking Nitrofurantoin Monohyd Macro 100 MG Capsule Oral , Taking Triazolam 0.25 MG Tablet Oral , Taking Baclofen 20 MG Tablet Oral , Taking Clobetasol Propionate 0.05 % Solution External , Taking Losartan Potassium 25 MG Tablet Oral , Taking DULoxetine HCl 60 MG Capsule Delayed Release Particles Oral , Notes to Pharmacist: prescribed by neurolgy, Taking Meclizine HCl 12.5 MG Tablet Oral , Taking Benzonatate 100 MG Capsule Oral , Taking metFORMIN HCl ER 500 MG Tablet Extended Release 24 Hour Oral , Taking Breo Ellipta 100-25 MCG/INH Aerosol Powder Breath Activated Inhalation , Taking BinaxNOW COVID-19 Ag Card Kit In Vitro , Notes to Pharmacist: *Reorder from [facility] for eRx and Interaction Alerts*, Taking Fluticasone Propionate Diskus 50 MCG/ACT Aerosol Powder Breath Activated Inhalation , Notes to Pharmacist: *Reorder from [facility] for eRx and Interaction Alerts*, Taking Benzonatate 200 MG Capsule Oral , Taking Gabapentin 300 MG Capsule Oral , Taking prednisoLONE Acetate 1 % Suspension Ophthalmic , Taking Otezla 30 MG Tablet Oral , Taking ProAir HFA 108 (90 Base) MCG/ACT Aerosol Solution Inhalation , Taking Ozempic (0.25 or 0.5 MG/DOSE) 2 MG/3ML Solution Pen-injector Subcutaneous , Notes to Pharmacist: *Pick strength-form from [facility] for eRX*, Taking VTAMA 1 % TOPICAL CREAM , Notes to Pharmacist: *Reorder from [facility] for eRx and Interaction Alerts*, Taking VUMERITY 231 MG CAPSULE,DELAYED RELEASE , Notes to Pharmacist: *Reorder from [facility] for eRx and Interaction Alerts*, Taking Ergocalciferol 1.25 MG (16646 UT) Capsule Oral , Taking Pregabalin 50 MG Capsule Oral , Taking Shingrix 50 mcg/0.5 mL Suspension Reconstituted Intramuscular , Taking Clobetasol Propionate 0.05% Cream External , Taking Dicyclomine HCl 10 MG Capsule Oral , Taking Mounjaro 2.5 MG/0.5ML Solution Pen-injector Subcutaneous , Notes to Pharmacist: *Reorder from [facility] for eRx and Interaction Alerts*, Taking DEXCOM G6 EACH MISCELLANEOUS , Notes to Pharmacist: *Reorder from [facility] for eRx and Interaction Alerts*, Taking Atorvastatin Calcium 10 MG Tablet Oral , Taking Farxiga 10 MG Tablet Oral , Taking KESIMPTA PEN 20 MG/0.4 ML SUBCUTANEOUS PEN INJECTOR , Notes to Pharmacist: *Reorder from [facility] for eRx and Interaction Alerts*, Taking Auvelity 45-105 MG Tablet Extended Release 1 TABLET Oral TWICE A DAY , Discontinued buPROPion HCl ER (XL) 150 MG Tablet Extended Release 24 Hour Oral * Allergies: L ortab: Allergy - Onset Date 05/22/2022. Objective: * Vitals: H t: 68.00 in, Ht-cm: 172.72 cm. * Examination: P sychiatry: Appearance: w ell-groomed, well-nourished, .... Affect / mood: a ppropriate, full range. Attention: g ood. Attitude: c ooperative. Suicidal [...] eneral Examination: - Mental Status Examination: - Mood: Improved, fluctuating with situational stressors (daughter going to college). - Sleep: Mild difficulty falling asleep, improvement noted due to increased daytime activity. - Physical Examination: - Neurological: Patient is recovering from neurostimulator replacement surgery conducted seven weeks ago. - Gastrointestinal: Patient continues to undergo routine colonoscopy screenings. - Diagnostic Test Results and Labs: - Psychiatry: Daughter diagnosed with ADHD; date of diagnosis not specified. - Neurology: No specific test results mentioned, but patient is on medication for dizziness and sleep, indicating ongoing management of neurological symptoms. Assessment: * Assessment: 1. G eneralized anxiety disorder - F41.1 (Primary) 2 . M ajor depressive disorder, recurrent, mild - F33.0 3 . I nsomnia due to other mental disorder - F51.05 4 . P ost-traumatic stress disorder, chronic - F43.12 1. Mood fluctuations and str ess related to life events:- Patient reports improvement in mood over the past month due to family vacations and increased activity. However, there are ongoing stressors related to daughter's college transition and recent ADHD diagnosis.Plan:- Continue current medications: Cymbalta and bupropion- Encourage patient to maintain increased activity levels and engage in stress-reducing activities- Schedule follow-up appointment in 6 months to reassess mood and stress levels2. Sleep disturbances:- Patient reports mild difficulty falling asleep but has seen some improvement due to increased daytime activity.Plan:- Encourage patient to maintain a consistent sleep schedule and practice good sleep hygiene- Monitor sleep quality during follow-up appointments3. Pharmacy and follow-up:- Patient uses [facility] pharmacy for medication refills- Schedule follow-up appointment in 6 months to reassess patient's overall health and medication management Plan: * Treatment: 2. M ajor depressive disorder, recurrent, mild Refill Auvelity Tablet Extended Release, 45-105 MG, 1 TABLET, Oral, TWICE A DAY, 30 days, 90 Tablet, Refills 1. Notes: cont Auvelity 45mg -105mg bid, on Duloxetine 60mg bid by neurolgist * Follow Up: 6 Months (Reason: depression) * Billing Information: * Visit Code: [id number] OFFICE OUTPATIENT VISIT 25 MINUTES DETAILED HISTORY AND EXAM/MODERATE MEDICAL DECISION MAKING. * Procedure Codes: * Sign off status: Completed true * Provider: STACIA SANTOYO Date: 0 09/04/2023 Generated for Hai pastor/César/Lorena on: 0 05/02/2024 02:21 PM CDT History and Physical Notes * HPI (History of Present Illness) Category Sub-Category Detail Notes Category Not es History of Presenting Problem Depression mild symptoms Depression screening PHQ-9 Little inte rest or pleasure in doing things: Several days Feeling down, depressed, or hopeless: No t at all Trouble falling or staying asleep, or sl eeping too much: Several days Feeling tired or having little energy: N early every day Poor appetite or overeating: Several day s Feeling bad about yourself o r that you are a failure, or have let yourself or your family down: Several days Trouble concentrating on thi ngs, such as reading the newspaper or watching television: Not at all Moving or speaking so slowly that other people could have noticed; or the opposite, being so fidgety or restless that you have been moving around a lot more than usual: Not at all Thoughts that you would be b clover off or of hurting yourself in some way: Not at all Total Score: 7 Interpretation: Mild Depression Depression Screening LEONIDAS-7 (2018 Edition) Feelin g nervous, anxious, or on edge: Not at all Not being able to stop or control worryi ng: Nearly every day Worrying too much about different things : Nearly every day Trouble relaxing: Several days Being so restless that it is hard to sit still: Several days Becoming easily annoyed or irritable: Se veral days Feeling afraid as if something awful kishore ht happen: Several days Total LEONIDAS-7 Score: 10 If you checked any problems, how difficult have they made it for you to do your work, take care of things at home, or get along with other people?: Somewhat difficult Interpretation of Total: (10 to 14) Mode rate [place]-Suicide Severity Rating Scale Suicide Risk (CSRS-screener) in the past one month Have you wished you were or wished you could go to sleep and not wake up?: Yes in the past one month Have y ou actually had any thoughts of killing yourself?: No Examination Category Sub-Category Detail Notes Category Not es Psychiatry Appearance: well-groomed, well-nourished , ... walks with a cane Attitude: cooperative Psychomotor activity: within normal rang e Attention: good Degree of awareness of surroundings: wit hin normal limits Orientation: awake, alert and brian ented x 3 Affect / mood: appropriate, full ra nge Speech / language: appropriate pitch/mo dulation, clear and coherent, normal rate, volume, and articulation (RVR), proper grammar used Insight: good Judgement: good Thought process: intact Thought content: appropriate Perceptual disorders: no perceptual diso rder noted Suicidal ideation: none Intellectual functioning: no impairment noted Memory status: no impairment noted Delusions: no Hallucinations: no General Examination - Mental Status Examination: - Mood: Improved, fluctuating with situational stressors (daughter going to college). - Sleep: Mild difficulty falling asleep, improvement noted due to increased daytime activity. - Physical Examination: - Neurological: Patient is recovering from neurostimulator replacement surgery conducted seven weeks ago. - Gastrointestinal: Patient continues to undergo routine colonoscopy screenings. - Diagnostic Test Results and Labs: - Psychiatry: Daughter diagnosed with ADHD; date of diagnosis not specified. - Neurology: No specific test results mentioned, but patient is on medication for dizziness and sleep, indicating ongoing management of neurological symptoms.
--- OUTSIDE RECORDS SUMMARY | 2024-05-02 14:22 | XMS_ITS | Referral Summary ---
Author Organization [facility] Address [address] [place] [address] Care Team Providers Care Graduate Research Assistant Name Role Phone Arthur Landon MD Primary Care Provider Allergies Active Allergy Reactions Criticality Noted Date Comments Clarithromycin Other (See comments),Nausea only,Vomiting Low 09/18/2016 Thrush, nausea, Reaction: Nausea, Vomiting, Hydrocodone Nausea only,Vomiting Low Reaction: Nausea, Vomiting, Sulfamethoxazole-Trimetho prim Rash Medium 06/01/2017 Medications blood glucose diagnostic (ONETOUCH ULTRA TEST) strip use for accucheck BID as needed. 50 0 0 Active lutein-zeaxanthi n 25-5 mg capsule Take 1 tablet by mouth daily Active betamethasone dipropionate (DIPROLENE) 0.05 % ointment 2 8 Active apremilast 30 mg tablet Take 1 tablet (30 mg total) by mouth 2 (two) times a day Active ascorbic acid (VITAMIN C) 500 mg tablet,chewable Take 1 tablet/chew tab (500 mg total) by mouth daily Active calcium carbonate (OS-DORCAS) 1,250 MG (500 mg of elemental calcium) tablet Take 1 tablet (1,250 mg total) by mouth daily Active meclizine (ANTIVERT) 12.5 mg tablet Take 1 tablet (12.5 mg total) by mouth 3 (three) times a day as needed for dizziness Active multivitamin-Ca- iron-minerals 18-0.4 mg tabletIndication s:stop for surgery Take 1 tablet by mouth daily Active arm brace miscIndications: Bilateral carpal tunnel syndrome Bilateral carpal tunnel syndrome wrist splints 2 each 1 Active albuterol HFA (PROVENTIL HFA,VENTOLIN HFA,PROAIR HFA) 90 mcg/actuation inhaler 2 Active fluticasone propionate (FLONASE) 50 mcg/actuation nasal spray 1 Active losartan (COZAAR) 25 mg tablet 2 Active montelukast (SINGULAIR) 10 mg tablet 1 Active metFORMIN XR (GLUCOPHAGE XR) 500 mg 24 hr tablet 1 Active clobetasoL (TEMOVATE) 0.05 % external solution APPLY TO THE AFFECTED SCALP AREA BY TOPICAL ROUTE ONCE A DAY. NEVER TO FACE. 2 Active Vtama 1 % cream 2 Active cholecalciferol (VITAMIN D-3) 5,000 unit capsule Take 1 capsule (5,000 Units total) by mouth daily Active phytonadione, vit K1, (phytonadione, vitamin K1,) 100 mcg tablet Take by mouth daily Active vitamin K2 100 mcg capsule Take by mouth Acti ve UNABLE TO FIND Vitamin K3 23 MCG DAILY Active zinc gluconate 30 mg tablet Take by mouth Act mar UNABLE TO FIND Proprietary Blend 350 MG (Quercentin, Black Elderberry, Turmeric, Echinacea. Cynthia Root? Active UNABLE TO FIND Lifevantage Protandim NRF2 Synergizer [address]. [address] (CYMBALTA) 60 mg capsule TAKE 1 CAPSULE BY MOUTH TWICE A DAY 180 capsule 3 4 Active diroximel fumarate (Vumerity) 231 mg capsule,delayed release(DR/EC)In dications:Multip le sclerosis (HCC) Take 462 mg by mouth 2 (two) times a day 360 capsule 3 4 Active semaglutide (OZEMPIC SUBQ) Inject under the skin Active dextromethorphan -bupropion (AUVELITY) 45-105 mg tablet, IR & ER, biphasic Take 1 tablet by mouth 2 (two) times a day Active baclofen (LIORESAL) 20 mg tablet TAKE 1 TABLET BY MOUTH TWICE A DAY 180 tablet 3 4 Active clonazePAM (KlonoPIN) 0.5 mg tabletIndication s:Multiple sclerosis (HCC) TAKE 1 TABLET BY MOUTH EVERY MORNING AND TAKE 2 TABLETS AT NIGHT 90 tablet 5 5 Active gabapentin (NEURONTIN) 300 mg capsule TAKE 1 TO 2 CAPSULES EVERY 8 HOURS NEEDED FOR PAIN 540 capsule 2 5 Active Active Problems Problem Noted Date Diagnosed Date Psoriasis 04/22/2022 Assessment & Plan (10/15/2023 6:41 AM CDT): Currently on Otezla (apremilast). Additive risks in combination with Vumerity discussed. An alternative phosphodiesterase inhibitor ibudilast is being studied for the treatment of multiple sclerosis. In a multiple sclerosis study with 73 patients, secukinumab (Cosentyx), an IL- 17a antagonist, reduced contrast enhancing lesions by 67% compared to placebo at 24 weeks. Ustekinumab (Stelara), a IL-23A antagonist, was not effective for multiple sclerosis, but did not adversely impact disease in the small trial. TNF inhibitors are contraindicated. Assessment & Plan (04/24/2022 6:56 AM STEEL HANDLER): Currently on Otezla (apremilast). Additive risks in combination with Kesimpta discussed. An alternative phosphodiesterase inhibitor ibudilast is being studied for the treatment of multiple sclerosis. Goal will be to switch to monotherapy with either Vumerity (diroximel fumarate) or dimethyl fumarate. In a multiple sclerosis study with 73 patients, secukinumab (Cosentyx), an IL- 17a antagonist, reduced contrast enhancing lesions by 67% compared to placebo at 24 weeks. Ustekinumab (Stelara), a IL-23A antagonist, was not effective for multiple sclerosis, but did not adversely impact disease in the small trial. TNF inhibitors are contraindicated. Bilateral carpal tunnel syndrome 06/01/2020 Assessment & Plan (10/15/2023 6:36 AM CDT): Bilateral hand numbness when waking and driving. Decreased silk finisher in both hands. EMG/NCS 04/26/20 formed at [facility]: Bilateral carpal tunnel syndrome, sensory more than motor. Bilateral wrist splints. Prefers to hold off on surgery. Assessment & Plan (04/24/2022 7:02 AM STEEL HANDLER): Bilateral hand numbness when waking and driving. Decreased silk finisher in both hands. EMG/NCS 04/26/20 formed at [facility]: Bilateral carpal tunnel syndrome, sensory more than motor. Bilateral wrist splints. Assessment & Plan (03/13/2022 12:19 PM STEEL HANDLER): Bilateral hand numbness when waking and driving. Decreased silk finisher in both hands. EMG/NCS 04/26/20 formed at [facility]: Bilateral carpal tunnel syndrome, sensory more than motor. Bilateral wrist splints. Assessment & Plan (09/13/2021 7:40 AM CDT): Bilateral hand numbness when waking and driving. Decreased silk finisher in both hands. EMG/NCS 04/26/20 formed at [facility]: Bilateral carpal tunnel syndrome, sensory more than motor. Bilateral wrist splints. Assessment & Plan (03/15/2021 1:22 PM STEEL HANDLER): Bilateral hand numbness when waking and driving. Decreased silk finisher in both hands. EMG/NCS 04/26/20 formed at [facility]: Bilateral carpal tunnel syndrome, sensory more than motor. Bilateral wrist splints. Assessment & Plan (06/01/2020 8:33 AM CDT): Bilateral hand numbness when waking and driving. Decreased silk finisher in both hands. EMG/NCS at [facility] was apparently consistent with bilateral carpal tunnel syndrome. Report requested. Wrist splints ordered. Cervical spinal stenosis 05/18/2019 Assessment & Plan (10/15/2023 6:36 AM CDT): Status post anterior cervical diskectomy and fusion with Dr. Dheeraj Alejandro August 2018 Assessment & Plan (04/24/2022 7:03 AM STEEL HANDLER): Status post anterior cervical diskectomy and fusion with Dr. Dheeraj Alejandro August 2018 Assessment & Plan (03/13/2022 12:27 PM STEEL HANDLER): Status post anterior cervical diskectomy and fusion with Dr. Dheeraj Alejandro August 2018 Assessment & Plan (09/13/2021 7:40 AM CDT): Status post anterior cervical diskectomy and fusion with Dr. Dheeraj Alejandro August 2018 Assessment & Plan (03/15/2021 12:55 PM STEEL HANDLER): Status post anterior cervical diskectomy and fusion with Dr. Dheeraj Alejandro August 2018 Assessment & Plan (06/01/2020 8:30 AM CDT): Status post anterior cervical diskectomy and fusion with Dr. Dheeraj Alejandro August 2018 Assessment & Plan (12/01/2019 7:24 AM CDT): Status post anterior cervical diskectomy and fusion with Dr. Dheeraj Alejandro August 2018 Assessment & Plan (05/18/2019 6:23 PM CDT): Status post anterior cervical diskectomy and fusion with Dr. Dheeraj Alejandro August 2018 Other fatigue 11/04/2018 High risk medication use 04/28/2017 Spinal stenosis of lumbar region with radiculopa thy 09/20/2016 Assessment & Plan (10/15/2023 6:37 AM CDT): Severe L4-5 lumbar stenosis and daniel severe L5-S1 NF stenosis. Cymbalta, Neurontin F/u pain management Had neurostimulator placed (MRI compatible) Seen Dr. Hylton. Assessment & Plan (04/24/2022 7:03 AM STEEL HANDLER): Severe L4-5 lumbar stenosis and daniel severe L5-S1 NF stenosis. Cymbalta, Neurontin F/u pain management Had neurostimulator placed (MRI compatible) Seen Dr. Hylton. Assessment & Plan (03/13/2022 12:27 PM STEEL HANDLER): Severe L4-5 lumbar stenosis and daniel severe L5-S1 NF stenosis. Cymbalta, Neurontin F/u pain management Had neurostimulator placed (MRI compatible) Seen Dr. Hylton. Assessment & Plan (09/13/2021 7:40 AM CDT): Severe L4-5 lumbar stenosis and daniel severe L5-S1 NF stenosis. Cymbalta, Neurontin F/u pain management Had neurostimulator placed (MRI compatible) Seen Dr. Hylton. Assessment & Plan (03/15/2021 12:54 PM STEEL HANDLER): Severe L4-5 lumbar stenosis and daniel severe L5-S1 NF stenosis. Cymbalta, Neurontin F/u pain management Had neurostimulator placed (MRI compatible) Seen Dr. Hylton. Assessment & Plan (06/01/2020 8:31 AM CDT): Severe L4-5 lumbar stenosis and daniel severe L5-S1 NF stenosis. Cymbalta, Neurontin F/u pain management Had neurostimulator placed (MRI compatible) Seen Dr. Hylton. Assessment & Plan (12/01/2019 7:25 AM CDT): Severe L4-5 lumbar stenosis and daniel severe L5-S1 NF stenosis. Cymbalta, Neurontin F/u pain management Had neurostimulator placed (MRI compatible) Seen Dr. Hylton. Assessment & Plan (05/18/2019 6:24 PM CDT): Severe L4-5 lumbar stenosis and daniel severe L5-S1 NF stenosis. Cymbalta, Neurontin F/u pain management Had neurostimulator placed (MRI compatible) Seen Dr. Hylton. Assessment & Plan (06/11/2018 8:04 AM CDT): Severe L4-5 lumbar stenosis and daniel severe L5-S1 NF stenosis. Cymbalta, Neurontin F/u pain management Had neurostimulator placed (MRI compatible) Seen Dr. Hylton. Assessment & Plan (12/04/2017 10:34 AM CDT): Severe L4-5 lumbar stenosis and daniel severe L5-S1 NF stenosis. Cymbalta, Neurontin F/u pain management Had neurostimulator placed. Seen Dr. Hylton. Assessment & Plan (09/20/2016 8:09 AM CDT): Severe L4-5 lumbar stenosis and daniel severe L5-S1 NF stenosis. Cymbalta, Neurontin F/u pain management Pt desires 2nd neurosurgical evaluation. Dr. Dheeraj Alejandro referral. Migraine with aura and witho ut status migrainosus, not intractable 09/20/2016 Assessment & Plan (10/15/2023 6:39 AM CDT): Improved post-menopause Excedrin as needed On Topamax in past Assessment & Plan (04/24/2022 7:03 AM STEEL HANDLER): Improved post-menopause Excedrin as needed On Topamax in past Assessment & Plan (03/13/2022 12:27 PM STEEL HANDLER): Improved post-menopause Excedrin as needed On Topamax in past Assessment & Plan (09/13/2021 7:41 AM CDT): Improved post-menopause Excedrin as needed On Topamax in past Assessment & Plan (03/15/2021 12:54 PM STEEL HANDLER): Improved post-menopause Excedrin as needed On Topamax in past Assessment & Plan (06/01/2020 8:31 AM CDT): Improved post-menopause Excedrin as needed On Topamax in past Assessment & Plan (12/01/2019 7:26 AM CDT): Improved post-menopause Excedrin as needed On Topamax in past Assessment & Plan (05/18/2019 6:24 PM CDT): Improved post menopause Excedrin as needed On Topamax in past Assessment & Plan (11/04/2018 11:43 AM CDT): Well controlled at this time. Tylenol or Ibuprofen prn Assessment & Plan (06/11/2018 8:03 AM CDT): Improve post menopause Ibuprofen 400 mg as needed On Topamax in past Assessment & Plan (12/04/2017 10:32 AM CDT): Fioricet prn On Topamax in past Assessment & Plan (04/28/2017 11:03 AM CDT): Headaches are improving with lifestyle modifications. Follow up in 6 months, or sooner should new symptoms or problems arise. 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 Assessment & Plan (03/15/2021 1:21 PM STEEL HANDLER): Cymbalta 60 mg BID Bupropion XL 300 mg daily Increased stress lately due to marital issues and daughter with anxiety/depression. Assessment & Plan (06/01/2020 8:31 AM CDT): Cymbalta 60 mg BID Bupropion XL 150 mg daily Increased stress lately due to marital issues. Assessment & Plan (12/01/2019 7:27 AM CDT): Cymbalta 60 mg BID Bupropion XL 150 mg daily Increased stress lately due to marital issues. Assessment & Plan (05/18/2019 6:25 PM CDT): Cymbalta 60 mg BID Bupropion XL 150 mg daily Assessment & Plan (11/04/2018 11:43 AM CDT): Wellbutrin 150mg XL. Discussed mood and stress. She declines increase in medication or counseling at this time. 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 Risks discussed including hepatotoxicity, lymphocytopenia and serious infections including PML. Importance of lymphocyte monitoring discussed. Increased risk of serious complications including pneumonia and possibly if she develops COVID-19 infection discussed. Last COVID-19 booster fall 2022. She understands that Kesimpta may reduce the efficacy of a COVID-19 vaccine and potentially may not be protected. Yazvifay advised if she develops COVID-19. Kesimpta discontinued March 2022 due to decrease in IgG to 357. Tysabri discontinued November 2017 after becoming RAMILA virus antibody positive; Tysabri started in 2010. Neurontin 600 mg twice a day Baclofen 20 mg nightly Exercise encouraged Using cane or walker Vit D supplement: 50,000 IU D2 once monthly + daily 2000 IU D3 supplement. MRI brain and cervical spine with contrast scheduled October 28, 2023; MRI-compatible spinal cord stimulator. Assessment & Plan (04/24/2022 7:02 AM STEEL HANDLER): Kesimpta discontinued on April 08, 2022 due to decrease in IgG to 357. Increased risk of serious infections with low IgG discussed with patient. When B cells recover, will switch to Vumerity (diroximel fumarate) or dimethyl fumarate to treat psoriasis and multiple sclerosis. Will check immune competency panel and immunoglobulin levels in the end of June 2022. Increased risk of serious complications including pneumonia and possibly if develops COVID-19 infection discussed. Her last COVID-19 booster was December 17, 2021. She understands that Kesimpta may reduce the efficacy of a COVID-19 vaccine and potentially may not be protected. Teenalovifay advised if she develops COVID-19. 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 Neurontin 600 mg twice a day Baclofen 20 mg nightly Exercise encouraged Walker or electric wheelchair for distance Vit D supplement: 50,000 IU D2 once monthly + daily 2000 IU D3 supplement. MRI brain and cervical spine October 2022. Future MRI imaging at [facility] (has MRI-compatible spinal cord stimulator). Assessment & Plan (03/15/2022 7:05 AM STEEL HANDLER): Kesimpta 20 mg subcutaneous monthly. The benefits and risks of Kesimpta were discussed including anaphylaxis, injection site reactions and serious infections including herpetic infections and PML. Increased risk of serious complications including pneumonia and possibly if develops COVID-19 infection discussed. Her last COVID-19 booster was December 17, 2021. She understands that Kesimpta may reduce the efficacy of a COVID-19 vaccine and potentially may not be protected. Muriel advised if she develops COVID-19. 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 Neurontin 600 mg twice a day Baclofen 20 mg nightly Exercise encouraged Walker or electric wheelchair for distance Vit D supplement: 50,000 IU D2 once monthly + daily 2000 IU D3 supplement. MRI brain and cervical spine October 2022. Future MRI imaging at [facility] (has MRI-compatible spinal cord stimulator). Assessment & Plan (09/13/2021 7:39 AM CDT): Kesimpta 20 mg subcutaneous monthly. The benefits and risks of Kesimpta were discussed including anaphylaxis, injection site reactions and serious infections including herpetic infections and PML. Increased risk of serious complications including pneumonia and possibly if develops COVID-19 infection discussed. Received a booster COVID-19 vaccination on January 24, 2021. Another booster vaccination recommended. She understands that Kesimpta may reduce the efficacy of a COVID-19 vaccine and potentially may not be protected. Muriel advised if she develops COVID-19. Will defer on Evusheld due to cardiovascular risks. 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 Neurontin 600 mg twice a day Baclofen 20 mg nightly Exercise encouraged Walker or electric wheelchair for distance Vit D supplement: 50,000 IU D2 once monthly + daily 2000 IU D3 supplement. MRI brain and cervical spine October 2022. Future MRI imaging at [facility] (has MRI-compatible spinal cord stimulator). Assessment & Plan (03/15/2021 1:19 PM STEEL HANDLER): Kesimpta 20 mg subcutaneous monthly. The benefits and risks of Kesimpta were discussed including anaphylaxis, injection site reactions and serious infections including herpetic infections and PML. Increased risk of serious complications if develops coronavirus infection (COVID-19) discussed including pneumonia and possibly . She is maintaining social distancing. Received her booster COVID-19 vaccination on January 24, 2021. She understands that Kesimpta may reduce the efficacy of a COVID-19 vaccine and potentially may not be protected. Advised to wear a mask in public. 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 Neurontin 600 mg twice a day Baclofen 20 mg twice a day Exercise encouraged Walker or electric wheelchair for distance Vit D supplement: 50,000 IU D2 once monthly + daily 2000 IU D3 supplement. Future MRI imaging at [facility] (has MRI-compatible spinal cord stimulator) Assessment & Plan (06/01/2020 8:30 AM CDT): Kesimpta 20 mg subcutaneous monthly. The benefits and risks of Kesimpta were discussed including anaphylaxis, injection site reactions and serious infections including herpetic infections and PML. Increased risk of serious complications if develops coronavirus infection (COVID-19) discussed including pneumonia and possibly . She is maintaining social distancing. She is scheduled for 2nd COVID-19 Pfizer vaccination on June 12, 2020. 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 Neurontin 600 mg twice a day Baclofen 20 mg twice a day Exercise encouraged Walker or electric wheelchair for distance Vit D supplement: 50,000 IU D2 once monthly + daily 4000 IU D3 supplement. MRI brain and cervical spine July 2020 at [facility] (has MRI- compatible spinal cord stimulator) Assessment & Plan (12/01/2019 7:25 AM CDT): Next Ocrevus infusion December 2019. The benefits and risks of Ocrevus were discussed including serious infusion reactions, serious infections including respiratory/herpetic/PML infections and potential malignancy including breast cancer. Option of switch take Kesimpta was also discussed. The benefits and risks of Kesimpta were discussed including anaphylaxis, injection site reactions and serious infections including herpetic infections and PML. Increased risk of serious complications if develops coronavirus infection (COVID-19) discussed including pneumonia and possibly . Patient wants to continue Ocrevus. She is maintaining social distancing. 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 Neurontin 600 mg twice a day Baclofen 20 mg twice a day Exercise encouraged Walker or electric wheelchair for distance Vit D supplement: 50,000 IU D2 once monthly + daily 4000 IU D3 supplement. 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 Neurontin 600 mg twice a day Baclofen 20 mg twice a day Exercise encouraged Walker or electric wheelchair for distance Vit D supplement: 50,000 IU D2 once monthly + daily 4000 IU D3 supplement. Assessment & Plan (11/04/2018 11:50 AM CDT): Previously on Tysabri, but became JCV ab positive. Switched to Tecfidera Jan 2018 but cannot tolerate flushing. Discussed Ocrevus. Risks include potential infusion reactions, potential increase risk of infection including respiratory, herpes and PML, potential increased risk of malignancy including breast cancer, and possibly higher with her family history. She is aware of this risk. Desires to start Ocrevus. ALC today was 700. She will need to stop her Tecfidera about 1 week prior to starting Ocrevus and repeat the CBC the day prior to her infusion Continue gabapentin 1-2 capsules up to TID Baclofen 20mg BID MRI of the brain after 6 month dose of Ocrevus Follow up with Dr. Elias in 6 months Assessment & Plan (06/11/2018 8:02 AM CDT): On Tecfidera since January 29, 2018. 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 Neurontin, Baclofen Exercise Walker Vit D supplement: 50,000 IU D2 once monthly + daily 2000 IU D3 supplement. Provigil as needed. Assessment & Plan (12/18/2017 3:49 PM CDT): We discussed various treatment options including Ocrevus and Tecfidera. Risks and benefits of Tecfidera discussed including flushing, n/v/d, hepatotoxicity, harm, low white blood cell count, and serious infection including PML. Discussed Ocrevus. Risks include potential infusion reactions, potential increase risk of infection including respiratory, herpes and PML, potential increased risk of malignancy including breast cancer. Strong family history of breast cancer and also has psoriasis so she would like to proceed with Tecfidera. We discussed its titration including the importance of eating with taking her medication. Increased risk of liver enzyme elevations on her psoriasis medication, will most likely need to stop when starting Tecfidera. MRI of the brain at the end of this month. She had a neuro stimulator placed in May 2017 for her back pain. It is model number 3662 and compatible per medical laboratory scientist manual for an MRI with 1.5T She is currently one month now off Tysabri, had 2 days of IVMP yesterday and today. Will plan for another 2 days of IVMP on January 17 and then can start Tecfidera. Assessment & Plan (12/04/2017 10:31 AM CDT): Tysabri. Risks discussed incl PML. Neurontin, Baclofen Exercise Walker Vit D supplement: 50,000 IU D2 once monthly + daily 2000 IU D3 supplement. Provigil as needed. Will assess whether she is able to get an MRI scan with neurostimulator placed Assessment & Plan (04/28/2017 11:02 AM CDT): Continue Tysabri 1. Discuss skin issues with dermatology. Let me know if any new medications or want to discuss further 2. Can take Miralax for more regular bowel movements 3. Blood work today 4. Letter for water aerobics 5. [email or web address] on YouTube 6. MRI of brain [facility]. Call us in a few business days if you have not heard about your MRI [phone]. Assessment & Plan (09/20/2016 8:14 AM CDT): Tysabri. Risks discussed incl PML. Neurontin increase up to 900 mg qhs Baclofen Exercise Walker Vit D supplement: 50,000 IU D2 once monthly + daily supplement. 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 03/11/2016 12/04/2017 Lumbago 04/19/2011 12/04/2017 Immunizations Immunization Administration Dates Next Due Influenza, Quadrivalent, Randi l Culture-based MDCK, Antibiotic Free, Intramuscular 12/21/2019 Influenza, Quadrivalent, Randi l Culture-based MDCK, Preservative Free, Antibiotic Free, Intramuscular 12/17/2021,11/22/2017 Influenza, Quadrivalent, Spl it, Preservative Free, Intramuscular 12/07/2020,11/11/2018 Influenza, Trivalent, IM (MDV) 5,12/14/2013,01/18/2013,02/17 Influenza, Trivalent, Preser vative Free, Intramuscular 01/18/2016,12/21/2014 Pneumococcal Polysaccharide PPV23 12/09/2018,02/2006,02/17/2001 Tdap 04/28/2019 ZOSTER Recombinant 11/16/2018,01/12/2018 Social History Tobacco Use Types Packs/Day Years Used Date Smoking Tobacco: Never Smokeless Tobacco: Never Tobacco Cessation:Counseling Given: Not Answered Alcohol Use Standard Drinks/Week Comments No 0 (1 standard drink = 0.6 oz pur e alcohol) Comments No Sex and Gender Information Value Date Recorded Sex Assigned at Not on file Legal Sex Female 1:09 AM STEEL HANDLER Gender Identity Female 11/20/2023 11:28 AM CDT Sexual Orientation Straight 11/20/2023 11 :28 AM CDT Last Filed Vital Signs Vital Sign Reading Time Taken Comments Blood Pressure 104/62 10/14/2023 11:12 AM CDT Pulse 106 10/14/2023 11:12 AM CDT Temperature 36.3 C (97.3 F) 04/22/2022 1:09 PM STEEL HANDLER Respiratory Rate 18 12/21/2018 1:39 PM STEEL HANDLER Oxygen Saturation 98% 10/14/2023 11:12 AM CDT Inhaled Oxygen Concentration - - Weight 87.5 kg (193 lb) 11/16/2023 12:49 PM CDT Height 172.7 cm (5' 8 ) 11/16/2023 12:49 PM CDT Body Mass Index 29.35 11/16/2023 12:49 PM CDT Plan of Treatment Not on file Medical Devices Implanted Type Area Astronomy Professor Device Identifier Shelf Expiration Date Model / Serial / Lot Stimulator- 024 Implanted:Qty: 1 on 08/08/2023 by Kalyani Gonsalez MD Stimulator N/A: Spine Thoracic Anders ETERNA [id number] / [id number] / Description:Eterna IPC [id number] with two 3186 leads 1.5T only this unit replaced the older unit all older components removed per pt Unit must be placed in mri mode Kit Neurostimulator Octrode L60 Cm Percutaneous 8 Electrode Lead - [id number] Implanted:Qty: 1 on 06/27/2017 by Kalyani Gonsalez MD at [facility] N/A: Spine Lumbar [employer] 12/27/2018 [id number] / / [id number] Kit Neurostimulator Octrode L60 Cm Percutaneous 8 Electrode Lead - [id number] Implanted:Qty: 1 on 06/27/2017 by Kalyani Gonsalez MD at [facility] N/A: Spine Lumbar [employer] 04/21/2019 [id number] / / [id number] Am[place] Lead Junior-Lock - [id number] Implanted:Qty: 1 on 06/27/2017 by Kalyani Gonsalez MD at [facility] N/A: Spine Lumbar [employer] 03/26/2019 1192 / / [id number] Amelia Lead Junior-Lock - [id number] Implanted:Qty: 1 on 06/27/2017 by Kalyani Gonsalez MD at [facility] N/A: Spine Lumbar [employer] 07/31/2018 1192 / / [id number] [employer] 3660 Contrlsys Proclaim Elite 4.95cmx5.55cm 5 Implantable Pulse Tonic - [id number] Implanted:Qty: 1 on 11/27/2018 by Kalyani Gonsalez MD at [facility] N/A: Spine Lumbar [employer] 07/02/2020 3660 CONTRLSYS / / [id number] Explanted Type Area Astronomy Professor Device Identifier Shelf Expiration Date Model / Serial / Lot Generator Neurostimulator Proclaim Elite Thk.53 In L2.63 In X H1.98 In 2.1 Oz 7 Ipg Implantable Recharge Free Chronic Pain - [id number] Implanted:Qty: 1 on 06/27/2017 by Kalyani Gonsalez MD at [facility] Explanted:Qty: 1 on 11/27/2018 by Kalyani Gonsalez MD at [facility] N/A: Spine Lumbar [employer] 05/07/2019 3662 / / [id number] Description:EXPLANT INTACT A ND GIVEN TO [facility] REP TO TAKE FOR INTERROGATION Procedures Procedure Name Priority Date/Time Associated Diagnosis Comments SCREENING MAMMOGRAM BILATERAL W DICK Schedule Routine, Read Routine (OP Routine) 01/20/2024 2:25 PM STEEL HANDLER Screening mammogram, encounter for HEPATITIS PANEL, ACUTE Routine 11/04/2018 10:36 AM CDT Multiple sclerosis (HCC) Encounter for other specified special examinations Other fatigue from Last 3 Months or Most Recently Relevant to Health Maintenance Results * Screening Mammogram Bilateral W Dick (01/20/2024 2:25 PM STEEL HANDLER) Anatomical Region Laterality Modality Breast Bilateral Mammography Narrative 01/21/2024 4:13 PM STEEL HANDLER Mammogram Technique: Bilateral Digital Breast Tomosynthesis, Bilateral C-view 2D Screening mammogram. Views obtained: bilateral craniocaudal and bilateral mediolateral oblique. Computer Aided Detection was performed. Mammogram Findings: The present examination has been compared to prior imaging studies performed at [facility] on 01/13/2023, and at [facility] on 02/28/2021 and 10/30/2022. There are scattered areas of fibroglandular density. There is no suspicious abnormality in either breast. Impression: There is no mammographic evidence of malignancy. Annual screening mammography is recommended. OVERALL FINAL ASSESSMENT: BI-RADS CATEGORY 1: Negative. Procedure Note Kelle Pappas MD - 01/21/2024 Mammogram Technique: Bilateral Digital Breast Tomosynthesis, Bilateral C-view 2D Screening mammogram. Views obtained: bilateral craniocaudal and bilateral mediolateral oblique. Computer Aided Detection was performed. Mammogram Findings: The present examination has been compared to prior imaging studies performed at [facility] on 01/13/2023, and at [facility] on 02/28/2021 and 10/30/2022. There are scattered areas of fibroglandular density. There is no suspicious abnormality in either breast. Impression: There is no mammographic evidence of malignancy. Annual screening mammography is recommended. OVERALL FINAL ASSESSMENT: BI-RADS CATEGORY 1: Negative. us Self Screening Mammogram IMG MAMMO PROCEDURES Fi nal Result * Hepatitis panel, acute (11/04/2018 10:36 AM CDT) Hep A IgM Non-Reactive Non-Reactive [facility] Hep B core IgM Non-Reactive Non-Reactive [facility] Hep C Ab Non-Reactive Non-Reactive [facility] HepBsAg Nonreactive Nonreactive [facility] Blood specimen (specimen) 11/04/2018 10:36 AM CDT 11/04/2018 12:46 PM CDT Angélica Aviles NP LAB MICROBIOLOGY - GENERAL ORDER GÉNESIS Final Result [facility] [address] [place] [address] from Last 3 Months or Most Recently Relevant to Health Maintenance Insurance MEDICARE MEDICARE [id number] [place] [address] HEALTHCARE [place] [address] Advance Directives For more information, please contact: [phone] * Full Code (Latest Code Status on File) Date Activated Date Inactivated Comments 11/27/2018 4:29 PM 11/27/2018 8:29 PM Care Teams Graduate Research Assistant Relationship Specialty Start Date End Date Arthur Landon MD [address] [facility] [address] [place] [address] PCP - General Family Medicine 10/28/23
--- OUTSIDE RECORDS SUMMARY | 2024-05-02 14:22 | XMS_ITS | Clinical Summary ---
Author Organization [facility] Address [address] [place] [address] Care Team Providers Care Staff Genetic Counselor Name Role Phone Arthur Landon MD Primary [...] contraindicated. Assessment & Plan (04/24/2022 6:56 AM CLIPPER MACHINE OPERATOR): Currently on Otezla (apremilast). Additive risks in [...] hand numbness when waking and driving. 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 EMG/NCS 04/26/20 formed at [facility]: Bilateral carpal tunnel syndrome, sensory more than motor. Bilateral wrist splints. Prefers to hold off on surgery. Assessment & Plan (04/24/2022 7:02 AM CLIPPER MACHINE OPERATOR): Bilateral hand numbness when waking and driving. 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 EMG/NCS 04/26/20 formed at [facility]: Bilateral carpal tunnel syndrome, sensory more than motor. Bilateral wrist splints. Assessment & Plan (03/13/2022 12:19 PM CLIPPER MACHINE OPERATOR): Bilateral hand numbness when waking and driving. 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 EMG/NCS 04/26/20 formed at [facility]: Bilateral carpal tunnel syndrome, sensory more than motor. Bilateral wrist splints. Assessment & Plan (09/13/2021 7:40 AM CDT): Bilateral hand numbness when waking and driving. 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 EMG/NCS 04/26/20 formed at [facility]: Bilateral carpal tunnel syndrome, sensory more than motor. Bilateral wrist splints. Assessment & Plan (03/15/2021 1:22 PM CLIPPER MACHINE OPERATOR): Bilateral hand numbness when waking and driving. 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 EMG/NCS 04/26/20 formed at [facility]: Bilateral carpal tunnel syndrome, sensory more than motor. Bilateral wrist splints. Assessment & Plan (06/01/2020 8:33 AM CDT): Bilateral hand numbness when waking and driving. 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 EMG/NCS at [facility] was apparently consistent with bilateral carpal tunnel syndrome. Report requested. Wrist splints ordered. Cervical spinal stenosis 05/18/2019 Assessment & Plan (10/15/2023 6:36 AM CDT): Status post anterior cervical diskectomy and fusion with Dr. Dheeraj Alejandro August 2018 Assessment & Plan (04/24/2022 7:03 AM CLIPPER MACHINE OPERATOR): Status post anterior cervical diskectomy and fusion with Dr. Dheeraj Alejandro August 2018 Assessment & Plan (03/13/2022 12:27 PM CLIPPER MACHINE OPERATOR): Status post anterior cervical diskectomy and fusion with Dr. Dheeraj Alejandro August 2018 Assessment & Plan (09/13/2021 7:40 AM CDT): Status post anterior cervical diskectomy and fusion with Dr. Dheeraj Alejandro August 2018 Assessment & Plan (03/15/2021 12:55 PM CLIPPER MACHINE OPERATOR): Status post anterior cervical diskectomy and fusion [...] Hylton. Assessment & Plan (04/24/2022 7:03 AM CLIPPER MACHINE OPERATOR): Severe L4-5 lumbar stenosis and daniel severe L5-S1 NF stenosis. Cymbalta, Neurontin F/u pain management Had neurostimulator placed (MRI compatible) Seen Dr. Hylton. Assessment & Plan (03/13/2022 12:27 PM CLIPPER MACHINE OPERATOR): Severe L4-5 lumbar stenosis and daniel severe L5-S1 NF stenosis. Cymbalta, Neurontin F/u pain management Had neurostimulator placed (MRI compatible) Seen Dr. Hylton. Assessment & Plan (09/13/2021 7:40 AM CDT): Severe L4-5 lumbar stenosis and daniel severe L5-S1 NF stenosis. Cymbalta, Neurontin F/u pain management Had neurostimulator placed (MRI compatible) Seen Dr. Hylton. Assessment & Plan (03/15/2021 12:54 PM CLIPPER MACHINE OPERATOR): Severe L4-5 lumbar stenosis and daniel severe [...] past Assessment & Plan (04/24/2022 7:03 AM CLIPPER MACHINE OPERATOR): Improved post-menopause Excedrin as needed On Topamax in past Assessment & Plan (03/13/2022 12:27 PM CLIPPER MACHINE OPERATOR): Improved post-menopause Excedrin as needed On Topamax in past Assessment & Plan (09/13/2021 7:41 AM CDT): Improved post-menopause Excedrin as needed On Topamax in past Assessment & Plan (03/15/2021 12:54 PM CLIPPER MACHINE OPERATOR): Improved post-menopause Excedrin as needed On Topamax [...] follow-up Assessment & Plan (04/24/2022 7:04 AM CLIPPER MACHINE OPERATOR): Cymbalta 60 mg BID Bupropion XL 150 mg daily Psychiatry follow-up Assessment & Plan (03/15/2022 7:06 AM CLIPPER MACHINE OPERATOR): Cymbalta 60 mg BID Bupropion XL 150 mg daily Psychiatry follow-up Assessment & Plan (09/13/2021 7:41 AM CDT): Cymbalta 60 mg BID Bupropion XL 150 mg daily Increased stress with marital issues and daughter with anxiety/depression. Assessment & Plan (03/15/2021 1:21 PM CLIPPER MACHINE OPERATOR): Cymbalta 60 mg BID Bupropion XL 300 [...] stimulator. Assessment & Plan (04/24/2022 7:02 AM CLIPPER MACHINE OPERATOR): Kesimpta discontinued on April 08, 2022 due [...] spine October 2022. Future MRI imaging at [facility] (has MRI-compatible spinal cord stimulator). Assessment & Plan (03/15/2022 7:05 AM CLIPPER MACHINE OPERATOR): Kesimpta 20 mg subcutaneous monthly. The benefits [...] spine October 2022. Future MRI imaging at [facility] (has MRI-compatible spinal cord stimulator). Assessment & [...] spine October 2022. Future MRI imaging at [facility] (has MRI-compatible spinal cord stimulator). Assessment & Plan (03/15/2021 1:19 PM CLIPPER MACHINE OPERATOR): Kesimpta 20 mg subcutaneous monthly. The benefits [...] IU D3 supplement. Future MRI imaging at [facility] (has MRI-compatible spinal cord stimulator) Assessment & [...] brain and cervical spine July 2020 at [facility] (has MRI- compatible spinal cord stimulator) Assessment [...] is model number 3662 and compatible per graphic editor manual for an MRI with 1.5T She [...] you have not heard about your MRI [phone]. Assessment & Plan (09/20/2016 8:14 AM CDT): [...] (11/24/2018): Added automatically from request for surgery [id number] Vitamin D deficiency 04/28/2017 018 Assessment & [...] PPV23 12/09/2018,02/2006,02/17/2001 Tdap 04/28/2019 ZOSTER Recombinant 11/16/2018,01/12/2018 Surgical History Surgery Date Site/Laterality Comments TONSILLECTOMY tonsillectomy SECTION section OTHER SURGICAL HISTORY right achilles tendon repair NASAL SEPTUM SURGERY septoplasty OTHER SURGICAL HISTORY D&C NECK SURGERY 08/28/2018 SPINAL CORD STIMULATOR IMPLANT 06/17/2017 - 07/17/2017 Anders TUBAL LIGATION HYSTEROSCOPY W/ ENDOMETRIAL ABLATION Medical History Medical History Date Comments Hx Other Medical 1991 optic neuritis; improved 11/24/18 Multiple sclerosis (HCC) 2008 Multipl e sclerosis Asthma Asthma Hx Other Medical gallstones Hx Other Medical hiatal hernia; surgery Depression Depression Diabetes mellitus (HCC) Diabetes Hyperlipidemia Type 2 diabetes mellitus (HCC) Family History Medical History Relation Name Comments Parkinsonism Brother 1 Parkinson's dis ease; Psoriasis Brother 2 2 Psoriasis; COPD Father COPD; Cause of : COPD Depression Father Depression; Hypertension Father Hypertension; Bladder Cancer Mother Cancer -bladd er; Diabetes Mother Diabetes mellit us; Epilepsy Mother Epilepsy; Hypertension Mother Hypertension; Other Mother Cancer - bladde r/bone; Stroke Mother Stroke; Cause o f : Stroke Other Other No family histo ry of Multiple sclerosis; Relation Name Status Comments Brother 1 Brother 2 2 Father (Age 79) Mother (Age 79) Other Social History Tobacco Use Types Packs/Day Years Used Date Smoking Tobacco: Never Smokeless Tobacco: Never Tobacco Cessation:Counseling Given: Not Answered Alcohol Use Standard Drinks/Week Comments No 0 (1 standard drink = 0.6 oz pur e alcohol) Comments No Sex and Gender Information Value Date Recorded Sex Assigned at Not on file Legal Sex Female 1:09 AM CLIPPER MACHINE OPERATOR Gender Identity Female 11/20/2023 11:28 AM CDT Sexual Orientation Straight 11/20/2023 11 :28 AM CDT Obstetrics History Last Filed Vital Signs Vital Sign Reading Time Taken Comments Blood Pressure 104/62 10/14/2023 11:12 AM CDT Pulse 106 10/14/2023 11:12 AM CDT Temperature 36.3 C (97.3 F) 04/22/2022 1:09 PM CLIPPER MACHINE OPERATOR Respiratory Rate 18 12/21/2018 1:39 PM CLIPPER MACHINE OPERATOR Oxygen Saturation 98% 10/14/2023 11:12 AM CDT Inhaled Oxygen Concentration - - Weight 87.5 kg (193 lb) 11/16/2023 12:49 PM CDT Height 172.7 cm (5' 8 ) 11/16/2023 12:49 PM CDT Body Mass Index 29.35 11/16/2023 12:49 PM CDT Plan of Treatment Health Maintenance Due Date Last Done Comments Cervical Cancer Screening 1967 Colon Cancer Screening-Colonoscopy 1967 Depression Screening 1967 Hepatitis B Screening 1985 Regular Well Visit/Exam 18-64 1985 Pneumococcal vaccine <65 (2 of 2 - PCV) 12/10/2019 12/09/2018, 11/17/2006, 02/17/2001 Covid-19 Vaccine ( - 2023-2 5 season) 2023 12/17/2021, 01/24/2021, 06/12/2020, Additional history exists Influenza Vaccine (#1) 2023 , 12/07/2020, 12/21/2019, Additional history exists Breast Cancer Screening-Mammogram 01/19/2025 024 DTaP/Tdap/Td Vaccine (2 - Td or Tdap) 04/27/2029 04/28/2019 Hepatitis C Screening Completed 11/04/2018 Zoster Vaccine Completed 11/16/2018, 01/12/2018 Medical Devices Implanted Type Area Clothes Presser Device Identifier Shelf Expiration Date Model / Serial / Lot Stimulator- 024 Implanted:Qty: 1 on 08/08/2023 by Kalyani Gonsalez MD Stimulator N/A: Spine Thoracic Anders ETERNA [id number] / [id number] / Description:Eterna IPC [id number] with two 3186 leads 1.5T only this unit replaced the older unit all older components removed per pt Unit must be placed in mri mode Kit Neurostimulator Octrode L60 Cm Percutaneous 8 Electrode Lead - [id number] Implanted:Qty: 1 on 06/27/2017 by Kalyani Gonsalez MD at [facility] N/A: Spine Lumbar [employer] 12/27/2018 [id number] / / [id number] Kit Neurostimulator Octrode L60 Cm Percutaneous 8 Electrode Lead - [id number] Implanted:Qty: 1 on 06/27/2017 by Kalyani Gonsalez MD at [facility] N/A: Spine Lumbar [employer] 04/21/2019 [id number] / / [id number] [place] Lead Junior-Lock - [id number] Implanted:Qty: 1 on 06/27/2017 by Kalyani Gonsalez MD at [facility] N/A: Spine Lumbar [employer] 03/26/2019 1192 / / [id number] [place] Lead Junior-Lock - [id number] Implanted:Qty: 1 on 06/27/2017 by Kalyani Gonsalez MD at [facility] N/A: Spine Lumbar [employer] 07/31/2018 1192 / / [id number] [employer] 3660 Contrlsys Proclaim Elite 4.95cmx5.55cm 5 Implantable Pulse Tonic - [id number] Implanted:Qty: 1 on 11/27/2018 by Kalyani Gonsalez MD at [facility] N/A: Spine Lumbar [employer] 07/02/2020 3660 CONTRLSYS / / [id number] Explanted Type Area Clothes Presser Device Identifier Shelf Expiration Date Model / Serial / Lot Generator Neurostimulator Proclaim Elite Thk.53 In L2.63 In X H1.98 In 2.1 Oz 7 Ipg Implantable Recharge Free Chronic Pain - [id number] Implanted:Qty: 1 on 06/27/2017 by Kalyani Gonsalez MD at [facility] Explanted:Qty: 1 on 11/27/2018 by Kalyani Gonsalez MD at [facility] N/A: Spine Lumbar [employer] 05/07/2019 3662 / / [id number] Description:EXPLANT INTACT A ND GIVEN TO [facility] REP TO TAKE FOR INTERROGATION Procedures Procedure Name Priority Date/Time Associated Diagnosis Comments SCREENING MAMMOGRAM BILATERAL W DICK Schedule Routine, Read Routine (OP Routine) 01/20/2024 2:25 PM CLIPPER MACHINE OPERATOR Screening mammogram, encounter for HEPATITIS PANEL, ACUTE Routine 11/04/2018 10:36 AM CDT Multiple sclerosis (HCC) Encounter for other specified special examinations Other fatigue from Last 3 Months or Most Recently Relevant to Health Maintenance Results * Screening Mammogram Bilateral W Dick (01/20/2024 2:25 PM CLIPPER MACHINE OPERATOR) Anatomical Region Laterality Modality Breast Bilateral Mammography Narrative 01/21/2024 4:13 PM CLIPPER MACHINE OPERATOR Mammogram Technique: Bilateral Digital Breast Tomosynthesis, Bilateral C-view 2D Screening mammogram. Views obtained: bilateral craniocaudal and bilateral mediolateral oblique. Computer Aided Detection was performed. Mammogram Findings: The present examination has been compared to prior imaging studies performed at [facility] on 01/13/2023, and at [facility] on 02/28/2021 and 10/30/2022. There are [...] compared to prior imaging studies performed at [facility] on 01/13/2023, and at [facility] on 02/28/2021 and 10/30/2022. There are scattered areas of fibroglandular density. There is no suspicious abnormality in either breast. Impression: There is no mammographic evidence of malignancy. Annual screening mammography is recommended. OVERALL FINAL ASSESSMENT: BI-RADS CATEGORY 1: Negative. us Self Screening Mammogram IMG MAMMO PROCEDURES Fi nal Result * Hepatitis panel, acute (11/04/2018 10:36 AM CDT) Hep A IgM Non-Reactive Non-Reactive [facility] Hep B core IgM Non-Reactive Non-Reactive [facility] Hep C Ab Non-Reactive Non-Reactive [facility] HepBsAg Nonreactive Nonreactive [facility] Blood specimen (specimen) 11/04/2018 10:36 AM CDT 11/04/2018 12:46 PM CDT Angélica Aviles NP LAB MICROBIOLOGY - GENERAL ORDER GÉNESSI Final Result [facility] [address] [place] [address] from Last 3 Months or Most Recently Relevant to Health Maintenance Insurance MEDICARE MEDICARE MEDICARE Advance Directives For more information, please contact: [phone] * Full Code (Latest Code Status on File) Date Activated Date Inactivated Comments 11/27/2018 4:29 PM 11/27/2018 8:29 PM Care Teams Staff Genetic Counselor Relationship Specialty Start Date End Date Arthur Landon MD [address] [facility] [address] [place] [address] PCP - General Family Medicine 10/28/23
--- OUTSIDE RECORDS SUMMARY | 2024-05-02 14:22 | XMS_ITS | Encounter Summary ---
Author Organization [facility] Healthcare Address [address] [place] [address] Care Team Providers Care Lead Caster Name Role Phone Arthur Landon MD Primary Care Provider Tyrell Modi Primary Care Provider [phone] Arthur Landon MD Primary Care Provider Encounter Details Date Type Department Care Team (Late st Contact Info) Description 08/24/2020 Telephone [facility] - Imaging [address] [place] [address] Transcribed Order, Provider Social History Tobacco Use Types Packs/Day Years Used Date Smoking Tobacco: Never Smokeless Tobacco: Never Alcohol Use Standard Drinks/Week Comments No 0 (1 standard drink = 0.6 oz pur e alcohol) Comments Unknown Sex and Gender Information Value Date Recorded Sex Assigned at Not on file Legal Sex Female 1:09 AM CLASSROOM TECHNOLOGY COACH Gender Identity Female 11/20/2023 11:28 AM CDT Sexual Orientation Straight 11/20/2023 11 :28 AM CDT documented as of this encounter Plan of Treatment Not on file documented as of this encounter Visit Diagnoses Not on filedocumented in this encounter Care Teams Lead Caster Relationship Specialty Start Date End Date Arthur Landon MD [address] [facility] [address] [place] [address] PCP - General 05/17/16 12/15/22 Tyrell Modi PA [address] [facility] [address] [place] [address] PCP - General Physician Superannuation Clerk 12/16/22 10/27/23 Arthur Landon MD [address] [facility] [address] [place] [address] PCP - General Family Medicine 10/28/23 documented as of this encounter
--- OUTSIDE RECORDS SUMMARY | 2024-05-02 14:22 | XMS_ITS | Clinical Summary ---
Author Organization [facility] Address [address] [place] [address] Phone Care Team Providers Care Demolition Specialist Name Role Phone Arthur Landon MD Primary Care Provider Active Problems Problem Noted Date Diagnosed Date Chronic pain syndrome 03/28/2017 Somatic symptom disorder, pe rsistent, severe, with predominant pain 03/28/2017 Social History Tobacco Use Types Packs/Day Years Used Date Smoking Tobacco: Never Assessed Comments Unknown Sex and Gender Information Value Date Recorded Sex Assigned at Not on file Legal Sex Female 10:59 AM [employer] Gender Identity Not on file Sexual Orientation Not on file Plan of Treatment Health Maintenance Due Date Last Done Comments Hepatitis C Virus (HCV) Screening 1967 TdaP Immunization 1967 Hepatitis B Immunization (1 of 3 - 19+ 3-dose series) 1986 Pap Smear 02/15/1988 Cervical Cancer Screening (CCS) 1997 HPV/Cotest 1997 Colonoscopy 02/15/2012 Colorectal Cancer Screening 02/15/2012 Cologuard 2017 Immunochemical Fecal Occult Blood 2017 Mammogram 2017 Pneumococcal Immunization (5 0+ years) (1 of 1 - PCV) 2017 Zoster Immunization (1 of 2) 2017 Influenza Immunization (#1) 2023 SARS-COV-2 Immunization (1 - 2023- season) 2023 Respiratory Syncytial Virus (RSV) Immunization (Adult) (1 - 1-dose 75+ series) 2042 Meningococcal Immunization (ACWY) Aged Out No longer eligible based on patient's age to complete this topic Pneumococcal Immunization Combined Aged Out No longer eligible based on patient's age to complete this topic Rotavirus Immunization Aged Out No lo nger eligible based on patient's age to complete this topic Insurance MEDICARE Care Teams Demolition Specialist Relationship Specialty Start Date End Date Arthur Landon MD [address] [place] [address] PCP - General Family Medicine 03/20/17
== END 2024-05-02 14:16 | disposition home or self-care (01) ==
PROVIDERS: PCP Family Medicine; Visit Provider Nurse Practitioner Family
DX: Z96.82 Presence of neurostimulator (principal)
CPT/HCPCS: 72072; 72100

== ENCOUNTER 2024-07-06 09:44 | Outpatient (CLI) | payer OTHER, MEDICARE, SELFPAY ==
--- NOTE | ~2024-07-06 | XR_ITS ---
XR_CERV2-3V_CR 07/06/2024 10:13 Indication: Arthrodesis status Procedure: 3 view cervical spine Comparison: 03/01/2024 Findings: There has been interval anterior fusion and discectomy at C3-4. Hardware intact. There is a natomic alignment at this level. No underlying fracture or traumatic malalignment. Odontoid process i s normal. Stable appearance to postoperative changes consistent with anterior normal cervical alignme nt. There is multilevel facet hypertrophy. Lung apices are unremarkable. Fusion with discectomy at C4 -7. Impression: 1: Hardware intact status post fusion at C3-C7. 2: Moderate cervical spondylosis. Reviewed, dictated and finalized at location [] Impression: 1: Hardware intact status post fusion at C3-C7. 2: Moderate cervical spondylosis.
--- OUTSIDE RECORDS SUMMARY | 2024-07-06 09:58 | XMS_ITS | Clinical Summary ---
Author Organization [facility] Address [address] [place] [address] Care Team Providers Care Branch Employment Coordinator Name Role Phone Arthur Landon MD Primary [...] A DAY 180 capsule 3 4 Active dextromethorphan -bupropion (AUVELITY) 45-105 mg tablet, [...] FOR PAIN 540 capsule 2 5 Active atorvastatin (LIPITOR) 10 mg tablet Take 1 tablet (10 mg total) by mouth daily 5 Active cyclobenzaprine (FLEXERIL) 10 mg tablet Take 1 tablet (10 mg total) by mouth as needed 5 Active prednisoLONE acetate (PRED FORTE) 1 % ophthalmic suspension Administer 1 drop into the right eye daily 5 Active Ozempic 1 mg/dose (4 mg/3 mL) pen injector injection Inject 1 mg under the skin every 7 days 5 Active teriflunomide 14 mg tabletIndication s:Multiple sclerosis (HCC) Take 1 tablet (14 mg total) by mouth daily 90 tablet 3 5 Active Active Problems Problem Noted Date [...] contraindicated. Assessment & Plan (04/24/2022 6:56 AM BATCH MIXER): Currently on Otezla (apremilast). Additive risks in [...] hand numbness when waking and driving. Decreased blood bank technologist in both hands. EMG/NCS 04/26/20 formed at [facility]: Bilateral carpal tunnel syndrome, sensory more than motor. Bilateral wrist splints. Prefers to hold off on surgery. Assessment & Plan (04/24/2022 7:02 AM BATCH MIXER): Bilateral hand numbness when waking and driving. Decreased blood bank technologist in both hands. EMG/NCS 04/26/20 formed at [facility]: Bilateral carpal tunnel syndrome, sensory more than motor. Bilateral wrist splints. Assessment & Plan (03/13/2022 12:19 PM BATCH MIXER): Bilateral hand numbness when waking and driving. Decreased blood bank technologist in both hands. EMG/NCS 04/26/20 formed at [facility]: Bilateral carpal tunnel syndrome, sensory more than motor. Bilateral wrist splints. Assessment & Plan (09/13/2021 7:40 AM CDT): Bilateral hand numbness when waking and driving. Decreased blood bank technologist in both hands. EMG/NCS 04/26/20 formed at [facility]: Bilateral carpal tunnel syndrome, sensory more than motor. Bilateral wrist splints. Assessment & Plan (03/15/2021 1:22 PM BATCH MIXER): Bilateral hand numbness when waking and driving. Decreased blood bank technologist in both hands. EMG/NCS 04/26/20 formed at [facility]: Bilateral carpal tunnel syndrome, sensory more than motor. Bilateral wrist splints. Assessment & Plan (06/01/2020 8:33 AM CDT): Bilateral hand numbness when waking and driving. Decreased blood bank technologist in both hands. EMG/NCS at [facility] was apparently consistent with bilateral carpal tunnel syndrome. Report requested. Wrist splints ordered. Cervical spinal stenosis 05/18/2019 Assessment & Plan (10/15/2023 6:36 AM CDT): Status post anterior cervical diskectomy and fusion with Dr. Dheeraj Alejandro August 2018 Assessment & Plan (04/24/2022 7:03 AM BATCH MIXER): Status post anterior cervical diskectomy and fusion with Dr. Dheeraj Alejandro August 2018 Assessment & Plan (03/13/2022 12:27 PM BATCH MIXER): Status post anterior cervical diskectomy and fusion with Dr. Dheeraj Alejandro August 2018 Assessment & Plan (09/13/2021 7:40 AM CDT): Status post anterior cervical diskectomy and fusion with Dr. Dheeraj Alejandro August 2018 Assessment & Plan (03/15/2021 12:55 PM BATCH MIXER): Status post anterior cervical diskectomy and fusion [...] Hylton. Assessment & Plan (04/24/2022 7:03 AM BATCH MIXER): Severe L4-5 lumbar stenosis and daniel severe L5-S1 NF stenosis. Cymbalta, Neurontin F/u pain management Had neurostimulator placed (MRI compatible) Seen Dr. Hylton. Assessment & Plan (03/13/2022 12:27 PM BATCH MIXER): Severe L4-5 lumbar stenosis and daniel severe L5-S1 NF stenosis. Cymbalta, Neurontin F/u pain management Had neurostimulator placed (MRI compatible) Seen Dr. Hylton. Assessment & Plan (09/13/2021 7:40 AM CDT): Severe L4-5 lumbar stenosis and daniel severe L5-S1 NF stenosis. Cymbalta, Neurontin F/u pain management Had neurostimulator placed (MRI compatible) Seen Dr. Hylton. Assessment & Plan (03/15/2021 12:54 PM BATCH MIXER): Severe L4-5 lumbar stenosis and daniel severe [...] past Assessment & Plan (04/24/2022 7:03 AM BATCH MIXER): Improved post-menopause Excedrin as needed On Topamax in past Assessment & Plan (03/13/2022 12:27 PM BATCH MIXER): Improved post-menopause Excedrin as needed On Topamax in past Assessment & Plan (09/13/2021 7:41 AM CDT): Improved post-menopause Excedrin as needed On Topamax in past Assessment & Plan (03/15/2021 12:54 PM BATCH MIXER): Improved post-menopause Excedrin as needed On Topamax [...] follow-up Assessment & Plan (04/24/2022 7:04 AM BATCH MIXER): Cymbalta 60 mg BID Bupropion XL 150 mg daily Psychiatry follow-up Assessment & Plan (03/15/2022 7:06 AM BATCH MIXER): Cymbalta 60 mg BID Bupropion XL 150 mg daily Psychiatry follow-up Assessment & Plan (09/13/2021 7:41 AM CDT): Cymbalta 60 mg BID Bupropion XL 150 mg daily Increased stress with marital issues and daughter with anxiety/depression. Assessment & Plan (03/15/2021 1:21 PM BATCH MIXER): Cymbalta 60 mg BID Bupropion XL 300 [...] vaccine and potentially may not be protected. Paxlovid advised if she develops COVID-19. Kesimpta discontinued [...] stimulator. Assessment & Plan (04/24/2022 7:02 AM BATCH MIXER): Kesimpta discontinued on April 08, 2022 due [...] vaccine and potentially may not be protected. Paxlovid advised if she develops COVID-19. 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 Neurontin 600 mg twice a day Baclofen 20 mg nightly Exercise encouraged Walker or electric wheelchair for distance Vit D supplement: 50,000 IU D2 once monthly + daily 2000 IU D3 supplement. MRI brain and cervical spine October 2022. Future MRI imaging at [facility] (has MRI-compatible spinal cord stimulator). Assessment & Plan (03/15/2022 7:05 AM BATCH MIXER): Kesimpta 20 mg subcutaneous monthly. The benefits [...] vaccine and potentially may not be protected. Paxlovid advised if she develops COVID-19. 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 Neurontin 600 mg twice a day Baclofen 20 mg nightly Exercise encouraged Walker or electric wheelchair for distance Vit D supplement: 50,000 IU D2 once monthly + daily 2000 IU D3 supplement. MRI brain and cervical spine October 2022. Future MRI imaging at [facility] (has MRI-compatible spinal cord stimulator). Assessment [...] protected. Teenalovifay advised if she develops COVID-19. Will defer [...] spine October 2022. Future MRI imaging at [facility] (has MRI-compatible spinal cord stimulator). Assessment & Plan (03/15/2021 1:19 PM BATCH MIXER): Kesimpta 20 mg subcutaneous monthly. The benefits [...] IU D3 supplement. Future MRI imaging at [facility] (has MRI-compatible spinal cord stimulator) Assessment [...] brain and cervical spine July 2020 at [facility] (has MRI- compatible spinal cord stimulator) [...] is model number 3662 and compatible per pattern assembler manual for an MRI with 1.5T She [...] you have not heard about your MRI [phone]. Assessment & Plan (09/20/2016 8:14 AM CDT): [...] (11/24/2018): Added automatically from request for surgery [id number] Vitamin D deficiency 04/28/2017 018 Assessment & Plan (04/28/2017 11:02 AM CDT): Continue current doses Pain of lower extremity 03/11/201611/17 Spinal stenosis of lumbar region 03/11/2016 12/04/2017 Degeneration of intervertebr al disc of lumbar region 03/11/2016 12/04/2017 Lumbago 04/19/2011 12/04/2017 Encounters Date Type Department Care Team Description 06/03/2024 Telephone [facility] [address] [place] [address] Alice Downey RP 06/02/2024 Telephone [facility] [address] [place] [phone] Garret Elias MD Med Management 05/26/2024 12:05 PM CDT Lab [address] [place] [address] Multiple sclerosis (HCC) 05/26/2024 11:15 AM CDT Office Visit [facility] [address] [place] [address] [address] [address] Garret Elias MD Multiple sclerosis (HCC) (Primary Dx); Spinal stenosis of lumbar region with radiculopathy; Migraine with aura and without status migrainosus, not intractable; Cervical spinal stenosis; Bilateral carpal tunnel syndrome; 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) from Last 3 Months Immunizations Immunization Administration Dates Next Due Influenza, [...] optic neuritis; improved 11/24/18 Multiple sclerosis (HCC) 2009 Multipl e sclerosis Asthma Asthma Hx Other [...] on file Legal Sex Female 1:09 AM BATCH MIXER Gender Identity Female 11/20/2023 11:28 AM CDT Sexual Orientation Straight 11/20/2023 11 :28 AM CDT Obstetrics History Last Filed Vital Signs Vital Sign Reading Time Taken Comments Blood Pressure 102/56 05/26/2024 11:19 AM CDT Pulse 109 05/26/2024 11:19 AM CDT Temperature 36.3 C (97.3 F) 05/26/2024 11:19 AM CDT Respiratory Rate 18 12/21/2018 1:39 PM BATCH MIXER Oxygen Saturation 97% 05/26/2024 11:19 AM CDT Inhaled Oxygen Concentration - - Weight 84 kg (185 lb 1.6 oz) 05/26/2024 11:19 AM CDT Height 172.7 cm (5' 8 ) 05/26/2024 11:19 AM CDT Body Mass Index 28.14 05/26/2024 11:19 AM CDT Plan of Treatment Health Maintenance Due Date Last Done Comments Cervical Cancer Screening 1967 Colon Cancer Screening-Colonoscopy 1967 Depression Screening 1967 Hepatitis B Screening 1985 Regular Well Visit/Exam 18-64 1985 Pneumococcal vaccine <65 (2 of 2 - PCV) 12/10/2019 12/09/2018, 11/17/2006, 02/17/2001 Covid-19 Vaccine (2023-2 5 season) 2023 12/17/2021, 01/24/2021, 06/12/2020, Additional history exists Influenza Vaccine (Season Ended) 2024 12/17/2021, 12/07/2020, 12/21/2019, Additional history exists Breast Cancer Screening-Mammogram 01/19/2025 024 DTaP/Tdap/Td Vaccine (2 - Td or Tdap) 04/27/2029 04/28/2019 Hepatitis C Screening Completed 11/04/2018 Zoster Vaccine Completed 11/16/2018, 01/12/2018 Medical Devices Implanted Type Area Front End Web Developer Device Identifier Shelf Expiration Date Model / Serial / Lot Stimulator- [id number] Implanted:Qty: 1 on 08/08/2023 by Kalyani Gonsalez MD Stimulator N/A: Spine Thoracic Anders ETERNA [id number] / [id number] / Description:[facility] [id number] with two 3186 leads 1.5T only this unit replaced the older unit all older components removed per pt Unit must be placed in mri mode Kit Neurostimulator Octrode L60 Cm Percutaneous 8 Electrode Lead - [id number] Implanted:Qty: 1 on 06/27/2017 by Kalyani Gonsalez MD at [facility] N/A: Spine Lumbar [employer] 12/27/2018 [id number] / / [id number] Kit Neurostimulator Octrode L60 Cm Percutaneous 8 Electrode Lead - [id number] Implanted:Qty: 1 on 06/27/2017 by Kalyani Gonsalez MD at [facility] N/A: Spine Lumbar [employer] 04/21/2019 [id number] / / [id number] Laurel Lead Junior-Lock - [id number] Implanted:Qty: 1 on 06/27/2017 by Kalyani Gonsalez MD at [facility] N/A: Spine Lumbar [employer] 03/26/2019 1192 / / [id number] Laurel Lead Junior-Lock - [id number] Implanted:Qty: 1 on 06/27/2017 by Kalyani Gonsalez MD at [facility] N/A: Spine Lumbar [employer] 07/31/2018 1192 / / [id number] [employer] 3660 Contrlsys Proclaim Elite 4.95cmx5.55cm 5 Implantable Pulse Tonic - [id number] Implanted:Qty: 1 on 11/27/2018 by Kalyani Gonsalez MD at [facility] N/A: Spine Lumbar [employer] 07/02/2020 3660 CONTRLSYS / / [id number] Explanted Type Area Front End Web Developer Device Identifier Shelf Expiration Date Model / Serial / Lot Generator Neurostimulator Proclaim Elite Thk.53 In L2.63 In X H1.98 In 2.1 Oz 7 Ipg Implantable Recharge Free Chronic Pain - [id number] Implanted:Qty: 1 on 06/27/2017 by Kalyani Gonsalez MD at [facility] Explanted:Qty: 1 on 11/27/2018 by Kalyani Gonsalez MD at [facility] N/A: Spine Lumbar [facility] 05/07/2019 3662 / / [id number] Description:EXPLANT INTACT A ND GIVEN TO [facility] TO TAKE FOR INTERROGATION Procedures Procedure Name Priority Date/Time Associated Diagnosis Comments DIFFERENTIAL AUTO Routine 05/26/2024 12: 09 PM CDT Multiple sclerosis (HCC) CBC WITH AUTO DIFFERENTIAL Routine 05/26/2024 12:09 PM CDT Multiple sclerosis (HCC) HEPATIC FUNCTION PANEL Routine 05/26/2024 12:09 PM CDT Multiple sclerosis (HCC) TB TEST, QUANTIFERON GOLD Routine 05/26/2024 12:09 PM CDT Multiple sclerosis (HCC) SCREENING MAMMOGRAM BILATERAL W DICK Schedule Routine, Read Routine (OP Routine) 01/20/2024 2:25 PM BATCH MIXER Screening mammogram, encounter for HEPATITIS PANEL, ACUTE Routine 11/04/2018 10:36 AM CDT Multiple sclerosis (HCC) Encounter for other specified special examinations Other fatigue from Last 3 Months or Most Recently Relevant to Health Maintenance Results * Differential, auto (05/26/2024 12:09 PM CDT) Neutrophil abs 4.28 1.50 - 6.50 K/cumm Imm gran abs 0.02 0.00 - 0.10 K/cumm 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 Lymphocyte abs 1.26 0.80 - 3.30 K/cumm 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 Monocyte abs 0.49 0.20 - 0.80 K/cumm 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 Eosinophil abs 0.11 0.00 - 0.50 K/cumm 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 Basophil abs 0.05 0.00 - 0.10 K/cumm 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 Neutrophil pct 68.9 % 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 Comment: Interpretive Data Percent cell count reference ranges are not reported, since discordance with absolute values may lead to misinterpretation of CBC data. Current Interpretive Data was last revised on 2017. Imm gran pct 0.3 % 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 Comment: Interpretive Data Percent cell count reference ranges are not reported, since discordance with absolute values may lead to misinterpretation of CBC data. Current Interpretive Data was last revised on 2017. Lymphocyte pct 20.3 % 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 Comment: Interpretive Data Percent cell count reference ranges are not reported, since discordance with absolute values may lead to misinterpretation of CBC data. Current Interpretive Data was last revised on 2017. Monocyte pct 7.9 % 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 Comment: Interpretive Data Percent cell count reference ranges are not reported, since discordance with absolute values may lead to misinterpretation of CBC data. Current Interpretive Data was last revised on 2017. Eosinophil pct 1.8 % 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 Comment: Interpretive Data Percent cell count reference ranges are not reported, since discordance with absolute values may lead to misinterpretation of CBC data. Current Interpretive Data was last revised on 2017. Basophil pct 0.8 % 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 Comment: Interpretive Data Percent cell count reference ranges are not reported, since discordance with absolute values may lead to misinterpretation of CBC data. Current Interpretive Data was last revised on 2017. Blood 05/26/2024 12:0 9 PM CDT 05/26/2024 2:49 PM CDT us Garret Elias MD LAB BLOOD ORDERABLES Final Re sult 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 [address] [place] [address] * TB test, quantiferon gold (05/26/2024 12:09 PM CDT) [facility] Quantiferon TB Gold Negative Negative [facility] Comment: No interferon-gamma response to M. tuberculosis antigens was detected. Latent infection with M. tuberculosis is unlikely. A single negative result does not exclude infection with M. tuberculosis. In patients at high risk for M.tuberculosis infection, a second test should be considered in accordance with the 2017 ATS/IDSA/CDC Clinical Practice Guidelines for Diagnosis of Tuberculosis in Adults and Children [Kristian SANTIZO et. al. Clin. Infect. Dis. 2017;64(2):111-115]. The reference range for the 'TB1 Ag minus Nil Result' and 'TB2 Ag minus Nil Result' is an Interferon-gamma level <0.35 IU/mL. TB-Nil 0.00 IUnits/mL 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 TB2-Nil -0.01 IUnits/mL 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 Mitogen-Nil 9.97 IUnits/mL 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 NIL 0.03 IUnits/mL 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 Comment: Test Performed by: [facility] [address] [place] [address] Wheel Cleaner: Ariane Johnston Ph.D.; CLIA# [id number] Blood 05/26/2024 12:0 9 PM CDT 05/26/2024 2:51 PM CDT us Garret Elias MD LAB BLOOD ORDERABLES Final Re sult 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 [address] [place] [address] [facility] * (ABNORMAL) CBC with auto differential (05/26/2024 12:09 PM CDT) WBC 6.21 3.80 - 9.90 K/cumm Hgb 13.2 11.9 - 15.5 g/dL 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 Hct 42.1 35.6 - 45.5 % 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 Plt 286 150 - 400 K/cumm 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 MPV 10.2 9.1 - 12.3 fL 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 RBC 4.72 3.90 - 5.20 M/cumm 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 MCV 89.2 81.3 - 96.4 fL 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 MCH 28.0 27.1 - 33.3 pg 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 MCHC 31.4(L) 32.3 - 35.7 g/dL 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 RDW CV 13.9 11.1 - 14.9 % 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 RDW SD 45.1 35.7 - 48.1 fL 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 NRBC abs 0.00 0.00 - 0.01 K/cumm 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 Blood 05/26/2024 12:0 9 PM CDT 05/26/2024 2:49 PM CDT Garret Elias MD LAB BLOOD ORDERABLES Final Re sult Performing Organization Address City/[facility] Co de Phone Number 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 [address] [place] [address] * Hepatic function panel (05/26/2024 12:09 PM CDT) Bilirubin, total 0.5 0.1 - 1.2 mg/dL Bilirubin, direct <0.2 0.1 - 0.3 mg/dL 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 Protein, pl 6.7 6.5 - 8.5 g/dL 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 Albumin 4.3 3.5 - 5.0 g/dL 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 Alk phos 111 40 - 130 Units/L 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 ALT 15 7 - 45 Units/L 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 AST 18 10 - 45 Units/L 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 Blood 05/26/2024 12:0 9 PM CDT 05/26/2024 2:49 PM CDT Garret Elias MD LAB BLOOD ORDERABLES Final Re sult Performing Organization Address City/[facility] Co de Phone Number 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 [address] [place] [address] * Screening Mammogram Bilateral W Dick (01/20/2024 2:25 PM BATCH MIXER) Anatomical Region Laterality Modality Breast Bilateral Mammography Narrative 01/21/2024 4:13 PM BATCH MIXER Mammogram Technique: Bilateral Digital Breast Tomosynthesis, Bilateral C-view 2D Screening mammogram. Views obtained: bilateral craniocaudal and bilateral mediolateral oblique. Computer Aided Detection was performed. Mammogram Findings: The present examination has been compared to prior imaging studies performed at [facility] on 01/13/2023, and at [facility] on 02/28/2021 and 10/30/2022. There are [...] compared to prior imaging studies performed at [facility] on 01/13/2023, and at [facility] on 02/28/2021 and 10/30/2022. There are scattered areas of fibroglandular density. There is no suspicious abnormality in either breast. Impression: There is no mammographic evidence of malignancy. Annual screening mammography is recommended. OVERALL FINAL ASSESSMENT: BI-RADS CATEGORY 1: Negative. us Self Screening Mammogram IMG MAMMO PROCEDURES Fi nal Result * Hepatitis panel, acute (11/04/2018 10:36 AM CDT) Hep A IgM Non-Reactive Non-Reactive 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 Hep B core IgM Non-Reactive Non-Reactive 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 Hep C Ab Non-Reactive Non-Reactive 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 HepBsAg Nonreactive Nonreactive 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 Blood specimen (specimen) 11/04/2018 10:36 AM CDT 11/04/2018 12:46 PM CDT Angélica Aviles NP LAB MICROBIOLOGY - GENERAL ORDER GÉNESIS Final Result 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 [address] [place] [address] from Last 3 Months or Most Recently Relevant to Health Maintenance Insurance [facility]IC[facility] Advance Directives For more information, please contact: [phone] * Full Code (Latest Code Status on File) Date Activated Date Inactivated Comments 11/27/2018 4:29 PM 11/27/2018 8:29 PM Care Teams Branch Employment Coordinator Relationship Specialty Start Date End Date Arthur Landon MD [address] [facility] [address] [place] [address] PCP - General Family Medicine 10/28/23
--- OUTSIDE RECORDS SUMMARY | 2024-07-06 09:58 | XMS_ITS | Clinical Summary ---
Author Organization [facility] Address [address] [place] [address] Phone Care Team Providers Care Imaging Tech Name Role Phone Arthur Landon MD Primary Care Provider Active Problems Problem Noted Date Diagnosed Date Chronic pain syndrome 03/28/2017 Somatic symptom disorder, pe rsistent, severe, with predominant pain 03/28/2017 Social History Tobacco Use Types Packs/Day Years Used Date Smoking Tobacco: Never Assessed Comments Unknown Sex and Gender Information Value Date Recorded Sex Assigned at Not on file Legal Sex Female 10:59 AM SCIENTIFIC ARTIST Gender Identity Not on file Sexual Orientation Not on file Plan of Treatment Health Maintenance Due Date Last Done Comments Hepatitis C Virus (HCV) Screening 1965 TdaP Immunization 1967 Hepatitis B Immunization (1 of 3 - 19+ 3-dose series) 1986 Colonoscopy 02/15/2012 Colorectal Cancer Screening 02/15/2012 Cologuard 2017 Immunochemical Fecal Occult Blood 2017 Pneumococcal Immunization (5 0+ years) (1 of 1 - PCV) 2017 Zoster Immunization (1 of 2) 2017 Influenza Immunization (#1) 2023 SARS-COV-2 Immunization ( - season) 2023 Respiratory Syncytial Virus (RSV) Immunization (Adult) (1 - 1-dose 75+ series) 2042 Meningococcal Immunization (ACWY) Aged Out No longer eligible based on patient's age to complete this topic Rotavirus Immunization Aged Out No lo nger eligible based on patient's age to complete this topic Insurance MEDICARE Care Teams Imaging Tech Relationship Specialty Start Date End Date Arthur Landon MD [address] [place] [address] PCP - General Family Medicine 03/20/17
--- OUTSIDE RECORDS SUMMARY | 2024-07-06 09:58 | XMS_ITS | Encounter Summary ---
Author Organization [facility] Healthcare Address [address] [place] [address] Care Team Providers Care Marine Equipment Sales Engineer Name Role Phone Arthur Landon MD Primary Care Provider Reason for Visit * Diagnostic Imaging (Routine) - Closed Specialty Diagnoses / Procedures Referred By Contac t Referred To Contact Procedures Breast Imaging Screening Outside Reference Transcribed Order, Provider Referral ID Status Reason Start Date Expiration Date Visits Re quested Visits Authorized [id number] Closed 01/08/2023 02/07/2024 1 1 Encounter Details Date Type Department Care Team (Late st Contact Info) Description 01/19/2020 Hospital Encounter [facility] [address] [place] [id number] Social History Tobacco Use Types Packs/Day Years Used Date Smoking Tobacco: Never Smokeless Tobacco: Never Alcohol Use Standard Drinks/Week Comments No 0 (1 standard drink = 0.6 oz pur e alcohol) Comments No Sex and Gender Information Value Date Recorded Sex Assigned at Not on file Legal Sex Female 1:09 AM BLASTING HELPER Gender Identity Female 11/20/2023 11:28 AM CDT Sexual Orientation Straight 11/20/2023 11 :28 AM CDT documented as of this encounter Plan of Treatment Not on file documented as of this encounter Procedures Procedure Name Priority Date/Time Associated Diagnosis Comments BREAST IMAGING MG SCREENING OUTSIDE REFERENCE Routine 01/19/2020 12:00 AM BLASTING HELPER documented in this encounter Results * Breast Imaging Screening Outside Reference (01/19/2020 12:00 AM BLASTING HELPER) Impressions [facility] - 01/08/2023 11:25 AM BLASTING HELPER These images are for Reference purposes only and have not been reviewed by [facility] Radiology. There will be no report generated by a [facility] Radiologist. Narrative [facility] - 01/08/2023 11:25 AM BLASTING HELPER EXAMINATION: Images For Reference Purposes Only us Provider Transcribed Order IMG MAMMO PROCEDURES Final Result [facility] documented in this encounter Visit Diagnoses Not on filedocumented in this encounter Care Teams Marine Equipment Sales Engineer Relationship Specialty Start Date End Date Arthur Landon MD [address] [facility] [address] [place] [address] PCP - General 05/17/16 12/15/22 documented as of this encounter
--- OUTSIDE RECORDS SUMMARY | 2024-07-06 09:58 | XMS_ITS | Patient Health Record ---
Author Organization [facility] [employer] [facility] Address [address] [place] [address] Care Team Providers Care Sort Operations Supervisor Name Role Phone Cody Rice Unavailable [phone] Allergies Allergen (clinical drug ingredient) Drug/Non Drug Allergy documented on EMR Reaction Allergy Type Onset Date Status Lortab Unknown Drug Allergy 05/22/2022 Active Reason For Referral No Information Medications Medication SIG (Take, Route, Frequency, Duration) Notes Start Date End Date Status Ozempic (0.25 or 0.5 MG/DOSE) 2 MG/3ML Subcutaneous *Pick strength-form from [facility] for eRX* 06/24/2023 Active Farxiga 10 MG Oral 06/24/2023 Activ e ProAir HFA 108 (90 Base) MCG/ACT Inhalation 06/24/2023 Active Atorvastatin Calcium 10 MG Oral 06/24/2023 Active Otezla 30 MG Oral 06/24/2023 Active DEXCOM G6 MISCELLANEOUS *Reorder from [facility] for eRx and Interaction Alerts* 06/24/2023 Active MARIJUANA (CANNABIS) ORAL EDIBLE *Reorder from [facility] for [facility]Rx and Interaction Alerts* 06/24/2023 Active Symbicort 160-4.5 MCG/ACT Inhalation 06/24/2023 Active metFORMIN HCl ER 500 MG Oral 06/24/2023 Active clonazePAM 0.5 MG Oral prescribed by neurology 06/24/2023 Active KESIMPTA PEN 20 MG/0.4 ML SUBCUTANEOUS PEN INJECTOR *Reorder from [facility] for eRx and Interaction Alerts* 06/24/2023 Active prednisoLONE Acetate 1 % Ophthalmic 06/24/2023 Active Gabapentin 300 MG Oral 06/24/2023 A ctive Clobetasol Propionate 0.05% External 06/24/2023 Active Baclofen 20 MG Oral 06/24/2023 Acti ve methylPREDNISolone 4 MG Oral 06/24/2023 Active Auvelity 45-105 MG 1 TABLET Oral TWICE A DAY for 90 days Active Meclizine HCl 12.5 MG Oral 06/24/2023 Active Montelukast Sodium 10 MG Oral 06/24/2023 Active DULoxetine HCl 60 MG Oral prescribed by neurolgy 06/24/2023 Active Losartan Potassium 25 MG Oral 06/24/2023 Active Immunizations Vaccine Route Administration Date [...] Risk Notes Problem Mild recurrent major depression (03506285) Major depressive disorder, recurrent, mild (F33.0) Active confirmed Problem Generalized anxiety disorder (85035600) Generalized anxiety disorder (F41.1) Active confirmed Problem Posttraumatic stress disorder (28912955) Post-traumatic stress disorder, chronic (F43.12) Active confirmed Problem Insomnia disorder related to another mental disorder (29965124) Insomnia due to other mental disorder (F51.05) Active confirmed Vital Signs Heart Rate 103 /min 05/25/2024 Blood pressure diastolic 78 mm Hg 05/25/2024 Height-cm 172.72 cm 05/25/2024 Weight-kg 83.46 kg 05/25/2024 Height 68.00 in 05/25/2024 Blood pressure systolic 123 mm Hg 05/25/2024 Weight 184 lbs 05/25/2024 BMI 27.97 kg/m2 05/25/2024 Encounters Encounter Location Date Provider Diagnosis [facility] [employer] [address] [address] 09/04/2023 Cody Rice Generalized anxiety disorder F41.1 ; Major depressive disorder, recurrent, mild F33.0 ; Insomnia due to other mental disorder F51.05 and Post-traumatic stress disorder, chronic F43.[address] [address] 03/02/2024 Cody Rice Generalized anxiety disorder F41.1 ; Major depressive disorder, recurrent, mild F33.0 ; Insomnia due to other mental disorder F51.05 and Post-traumatic stress disorder, chronic F43.12 [facility] [employer] [address] 05/25/2024 Cody Rice Major depressive disorder, recurrent, mild F33.0 ; Generalized anxiety disorder F41.1 ; Insomnia due to other mental disorder F51.05 ; Post-traumatic stress disorder, chronic F43.12 and Encounter for screening for cardiovascular disorders Z13.6 [facility] [employer] [address] [address] 10/14/2023 Cody Rice Major depressive disorder, recurrent, mild F33.0 Assessments Encounter Date Diagnosis (ICD Code) Assessment Notes Treatment Notes Treatment Clinical Notes Section Notes 09/04/2023 Major depressive disorder, recurrent, mild (ICD-10 [...] maintain increased activity levels and engage in stress-reducin g activities - Schedule follow-up appointment in 6 months to reassess mood and stress levels 2. Sleep disturbances: - Patient reports mild difficulty falling asleep but has seen some improvement due to increased daytime activity. Plan: - Encourage patient to maintain a consistent sleep schedule and practice good sleep hygiene - Monitor sleep quality during follow-up appointments 3. Pharmacy and follow-up: - Patient uses [facility] pharmacy for medication refills - Schedule [...] maintain increased activity levels and engage in stress-reducin g activities - Schedule follow-up appointment in 6 months to reassess mood and stress levels 2. Sleep disturbances: - Patient reports mild difficulty falling asleep but has seen some improvement due to increased daytime activity. Plan: - Encourage patient to maintain a consistent sleep schedule and practice good sleep hygiene - Monitor sleep quality during follow-up appointments 3. Pharmacy and follow-up: - Patient uses [facility] pharmacy for medication refills - Schedule follow-up appointment in 6 months to reassess patient's overall health and medication management 10/14/2023 Major depressive disorder, recurrent, mild (ICD-10 - F33.0) 03/02/2024 Generalized anxiety disorder (ICD-10 - F41.1) on clonazepam by neurologist 05/25/2024 Major depressive disorder, recurrent, mild (ICD-10 - F33.0) cont Auvelity 45mg -105mg bid, on Duloxetine 60mg bid by neurolgist 05/25/2024 Generalized anxiety disorder (ICD-10 - F41.1) on clonazepam by neurologist 09/04/2023 Insomnia due to other mental disorder [...] maintain increased activity levels and engage in stress-reducin g activities - Schedule follow-up appointment in 6 months to reassess mood and stress levels 2. Sleep disturbances: - Patient reports mild difficulty falling asleep but has seen some improvement due to increased daytime activity. Plan: - Encourage patient to maintain a consistent sleep schedule and practice good sleep hygiene - Monitor sleep quality during follow-up appointments 3. Pharmacy and follow-up: - Patient uses [facility] pharmacy for medication refills - Schedule follow-up appointment in 6 months to reassess patient's overall health and medication management 03/02/2024 Major depressive disorder, recurrent, mild (ICD-10 - F33.0) cont Auvelity 45mg -105mg bid, on Duloxetine 60mg bid by neurolgist 05/25/2024 Insomnia due to other mental disorder (ICD-10 - F51.05) stable 03/02/2024 Insomnia due to other mental disorder (ICD-10 - F51.05) 05/25/2024 Post-traumatic stress disorder, chronic (ICD-10 - F43.12) 09/04/2023 Post-traumatic stress disorder, chronic (ICD-10 - [...] maintain increased activity levels and engage in stress-reducin g activities - Schedule follow-up appointment in 6 months to reassess mood and stress levels 2. Sleep disturbances: - Patient reports mild difficulty falling asleep but has seen some improvement due to increased daytime activity. Plan: - Encourage patient to maintain a consistent sleep schedule and practice good sleep hygiene - Monitor sleep quality during follow-up appointments 3. Pharmacy and follow-up: - Patient uses [facility] pharmacy for medication refills - Schedule follow-up appointment in 6 months to reassess patient's overall health and medication management 03/02/2024 Post-traumatic stress disorder, chronic (ICD-10 - F43.12) 05/25/2024 Encounter for screening for cardiovascular disorders (ICD-10 - Z13.6) 03/02/2024 Other 1. Major Depressive Disorder : [...] in three months or sooner if needed 05/25/2024 Other Desirae Hope, female patient with history of multiple sclerosis (MS) and recent surgery, presents with ongoing recovery, mood fluctuations, and intermittent anxiety. Post-surgical Recovery Assessment: Patient reports ongoing recovery from recent surgery with persistent muscle weakness and pain. She has been using ice packs extensively (4 simultaneously) to manage discomfort. The recovery process is impacting her daily activities and mobility. Plan: - Continue current post-surgical recovery plan - Encourage use of ice packs as needed for pain management - Patient to follow up with surgeon if symptoms worsen or persist Multiple Sclerosis (MS) Assessment: Patient has a history of MS and has been off MS medications since November of last year due to a compromised immune system. She reports experiencing dizziness upon standing or turning quickly, which may be related to her MS. Patient has an upcoming appointment with her neurologist to discuss MS innovations and care. Plan: - Patient to attend scheduled neurologist appointment for MS management - Advise caution when changing positions to prevent falls due to dizziness - Consider referral to physical therapy for balance and mobility exercises if not already in place Mood Disturbances Assessment: Patient reports fair mood with occasional irritability, particularly towards her older sister who is living with her. She also experiences intermittent depression, which she attributes to difficulties finding [id number] employment and cognitive challenges (memory and word-finding difficulties). Current treatment with Auvelity appears to be beneficial. Plan: - Continue Auvelity twice daily as prescribed - Refill Auvelity prescription - Encourage patient to monitor mood and report any significant changes - Schedule follow-up appointment in 3 months Anxiety Assessment: Patient experiences situational anxiety, particularly when feeling flustered or overwhelmed by information. She reports difficulty processing information quickly in these situations. Plan: - Educate patient on anxiety management techniques, such as deep breathing and grounding exercises - Encourage patient to communicate her needs for slower information delivery when feeling overwhelmed - Monitor anxiety symptoms and their impact on daily functioning the note is transcribed using speech recognition software. It is a reflection of a visit with the patient. It might have some inaccuracy, including medication names and transcribing errors, though efforts have been made to correct them. Plan Of Treatment Next Appt Details Provider Name:Cody dos santos, 08/24/2024 01:15:00 PM, [address], [facility] [address], [place], [address], Insurance Providers Payer Name Payer Address Payer Phone Subscriber Number Group Number Insured Name Patient Relationship to Insured Coverage Start Date Coverage End Date [employer] Pos [address] [place] [address] [id number] Spouse - patient is the spouse of the insured Medicare- [place] Medicare [address] [place] [phone] [id number] DESIRAE HOPE Self - patient is the insured Medical (General) History Medical History History ICD Code Problems: Chronic post-traumatic stress disorder Generalized anxiety disorder Insomnia disorder related to another men ana disorder Mild recurrent major depression Moderate recurrent major depression Multiple sclerosis Other chronic pain , Imported from [facility]: Th e patient has a history of multiple sclerosis (HCC), which has been a consistent issue throughout their medical encounters from October to January 2024. The patient has been in regular contact with various healthcare providers at [facility], including Sue Parry RN, Garret Elias MD, Myriam Mazariegos, and Anisa Kumar LPN. 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 The patient also had a screening mammogram during a hospital encounter on 01/20/2024. Earlier, on 09/14/2021, the patient was seen by Tyrell López MD for psoriasis vulgaris. Imported from [facility]: Te st: MRI Brain W WO Contrast Date: 2023-11-17 Results: Multiple unchanged intracranial lesions. No enhancing lesions. Interval development of large C3-4 disc extrusion causing severe central canal stenosis and cord compression with probable central cord signal abnormality on motion limited images. Surgical History Surgery Date(Month/Year) Any surgical history 02/17/2018 Removal of gallbladder (98282) 3 Endometrial ablation (89179) 08/17/2006 Cataract surgery (28672) 02/16/2020
--- OUTSIDE RECORDS SUMMARY | 2024-07-06 09:58 | XMS_ITS | Continuity of Care Document ---
Author Organization [facility]. If a dditional information is needed, contact Health Information Management at [phone] Address [address] [place] [address] Phone Care Team Providers Care Photography Instructor Name Role Phone Unavailable Unavailable Unavailable Unavailable [...]
--- OUTSIDE RECORDS SUMMARY | 2024-07-06 09:58 | XMS_ITS | Clinical Summary ---
Author Organization [facility] Address [address] [place] [address] Care Team Providers Care Service Observer Chief Name Role Phone Mich Landon MD Primary Care Provider [phone] Social History Tobacco Use Types Packs/Day Years [...] Screening with HPV 1997 Mammogram Screening 2007 Pneumococcal Vaccine: 50+ Ye ars (1 of 1 - PCV) 2017 Zoster Vaccines (1 of 2) 2017 COVID-19 Vaccine ( - 2023-2 5 season) 2023 Meningococcal B Vaccine Aged Out No l onger eligible based on patient's age to complete this topic Meningococcal Vaccine Aged Out No haresh lisandra eligible based on patient's age to complete this topic RSV Immunizations Under 20 Months Aged Out No longer eligible based on patient's age to complete this topic Care Teams Service Observer Chief Relationship Specialty Start Date End Date Mich Landon MD [address] [place] [id number] PCP - General 08/06/12
--- OUTSIDE RECORDS SUMMARY | 2024-07-06 09:58 | XMS_ITS | Referral Summary ---
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 Name Role Phone Arthur Landon MD Primary Care Provider Encounters Date Type Department Care Team Description 06/03/2024 Telephone [facility] [address] [place] [phone] Alice Downey RPh 06/02/2024 Telephone [facility] [address] [place] [phone] Garret Elias MD Med Management 05/26/2024 12:05 PM CDT Lab [address] [place] [address] Multiple sclerosis (HCC) 05/26/2024 11:15 AM CDT Office Visit [facility] [address] [place] [phone] Garret Elias MD Multiple sclerosis (HCC) (Primary Dx); Spinal stenosis of lumbar region with radiculopathy; Migraine with aura and without status migrainosus, not intractable; Cervical spinal stenosis; Bilateral carpal tunnel syndrome; 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 Assessment & Plan (04/24/2022 6:56 AM SEED EXPERT): Currently on Otezla (apremilast). Additive risks in [...] hand numbness when waking and driving. 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 EMG/NCS 04/26/20 formed at [facility]: Bilateral carpal tunnel syndrome, sensory more than motor. Bilateral wrist splints. Prefers to hold off on surgery. Assessment & Plan (04/24/2022 7:02 AM SEED EXPERT): Bilateral hand numbness when waking and driving. 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 EMG/NCS 04/26/20 formed at [facility]: Bilateral carpal tunnel syndrome, sensory more than motor. Bilateral wrist splints. Assessment & Plan (03/13/2022 12:19 PM SEED EXPERT): Bilateral hand numbness when waking and driving. 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 EMG/NCS 3/10/21 formed at [facility]: Bilateral carpal tunnel syndrome, sensory more than motor. Bilateral wrist splints. Assessment & Plan (09/13/2021 7:40 AM CDT): Bilateral hand numbness when waking and driving. 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 EMG/NCS 04/26/20 formed at [facility]: Bilateral carpal tunnel syndrome, sensory more than motor. Bilateral wrist splints. Assessment & Plan (03/15/2021 1:22 PM SEED EXPERT): Bilateral hand numbness when waking and driving. 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 EMG/NCS 04/26/20 formed at [facility]: Bilateral carpal tunnel syndrome, sensory more than motor. Bilateral wrist splints. Assessment & Plan (06/01/2020 8:33 AM CDT): Bilateral hand numbness when waking and driving. 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 EMG/NCS at [facility] was apparently consistent with bilateral carpal tunnel syndrome. Report requested. Wrist splints ordered. Cervical spinal stenosis 05/18/2019 Assessment & Plan (10/15/2023 6:36 AM CDT): Status post anterior cervical diskectomy and fusion with Dr. Dheeraj Alejandro August 2018 Assessment & Plan (04/24/2022 7:03 AM SEED EXPERT): Status post anterior cervical diskectomy and fusion with Dr. Dheeraj Alejandro August 2018 Assessment & Plan (03/13/2022 12:27 PM SEED EXPERT): Status post anterior cervical diskectomy and fusion with Dr. Dheeraj Alejandro August 2018 Assessment & Plan (09/13/2021 7:40 AM CDT): Status post anterior cervical diskectomy and fusion with Dr. Dheeraj Alejandro August 2018 Assessment & Plan (03/15/2021 12:55 PM SEED EXPERT): Status post anterior cervical diskectomy and fusion [...] Hylton. Assessment & Plan (04/24/2022 7:03 AM SEED EXPERT): Severe L4-5 lumbar stenosis and daniel severe L5-S1 NF stenosis. Cymbalta, Neurontin F/u pain management Had neurostimulator placed (MRI compatible) Seen Dr. Hylton. Assessment & Plan (03/13/2022 12:27 PM SEED EXPERT): Severe L4-5 lumbar stenosis and daniel severe L5-S1 NF stenosis. Cymbalta, Neurontin F/u pain management Had neurostimulator placed (MRI compatible) Seen Dr. Hylton. Assessment & Plan (09/13/2021 7:40 AM CDT): Severe L4-5 lumbar stenosis and daniel severe L5-S1 NF stenosis. Cymbalta, Neurontin F/u pain management Had neurostimulator placed (MRI compatible) Seen Dr. Hylton. Assessment & Plan (03/15/2021 12:54 PM SEED EXPERT): Severe L4-5 lumbar stenosis and daniel severe [...] past Assessment & Plan (04/24/2022 7:03 AM SEED EXPERT): Improved post-menopause Excedrin as needed On Topamax in past Assessment & Plan (03/13/2022 12:27 PM SEED EXPERT): Improved post-menopause Excedrin as needed On Topamax in past Assessment & Plan (09/13/2021 7:41 AM CDT): Improved post-menopause Excedrin as needed On Topamax in past Assessment & Plan (03/15/2021 12:54 PM SEED EXPERT): Improved post-menopause Excedrin as needed On Topamax [...] Assessment & Plan (09/20/2016 8:10 AM CDT): Rodriguez prn On Topamax in past Depression due to multiple sclerosis 09/20/2016 Assessment & Plan (10/15/2023 6:40 AM CDT): Cymbalta 60 mg BID Auvelity (dextromethorphan-bupropion) Psychiatry follow-up Assessment & Plan (04/24/2022 7:04 AM SEED EXPERT): Cymbalta 60 mg BID Bupropion XL 150 mg daily Psychiatry follow-up Assessment & Plan (03/15/2022 7:06 AM SEED EXPERT): Cymbalta 60 mg BID Bupropion XL 150 mg daily Psychiatry follow-up Assessment & Plan (09/13/2021 7:41 AM CDT): Cymbalta 60 mg BID Bupropion XL 150 mg daily Increased stress with marital issues and daughter with anxiety/depression. Assessment & Plan (03/15/2021 1:21 PM SEED EXPERT): Cymbalta 60 mg BID Bupropion XL 300 [...] stimulator. Assessment & Plan (04/24/2022 7:02 AM SEED EXPERT): Kesimpta discontinued on April 08, 2022 due [...] spine October 2022. Future MRI imaging at [facility] (has MRI-compatible spinal cord stimulator). Assessment & Plan (03/15/2022 7:05 AM SEED EXPERT): Kesimpta 20 mg subcutaneous monthly. The benefits [...] spine October 2022. Future MRI imaging at [facility] (has MRI-compatible spinal cord stimulator). Assessment & [...] protected. Paxlovid advised if she develops COVID-19. Will defer [...] spine October 2022. Future MRI imaging at [facility] (has MRI-compatible spinal cord stimulator). Assessment & Plan (03/15/2021 1:19 PM SEED EXPERT): Kesimpta 20 mg subcutaneous monthly. The benefits [...] IU D3 supplement. Future MRI imaging at [facility] (has MRI-compatible spinal cord stimulator) Assessment & [...] brain and cervical spine July 2020 at [facility] (has MRI- compatible spinal cord stimulator) Assessment [...] is model number 3662 and compatible per vat cleaner manual for an MRI with 1.5T She [...] Letter for water aerobics 5. 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 MRI of brain [facility]. Call us in a few business days if you have not heard about your MRI [phone]. Assessment & Plan (09/20/2016 8:14 AM CDT): [...] (11/24/2018): Added automatically from request for surgery [id number] Vitamin D deficiency 04/28/2017 018 Assessment & [...] on file Legal Sex Female 1:09 AM SEED EXPERT Gender Identity Female 11/20/2023 11:28 AM CDT Sexual Orientation Straight 11/20/2023 11 :28 AM CDT Last Filed Vital Signs Vital Sign Reading Time Taken Comments Blood Pressure 102/56 05/26/2024 11:19 AM CDT Pulse 109 05/26/2024 11:19 AM CDT Temperature 36.3 C (97.3 F) 05/26/2024 11:19 AM CDT Respiratory Rate 18 12/21/2018 1:39 PM SEED EXPERT Oxygen Saturation 97% 05/26/2024 11:19 AM CDT Inhaled Oxygen Concentration - - Weight 84 kg (185 lb 1.6 oz) 05/26/2024 11:19 AM CDT Height 172.7 cm (5' 8 ) 05/26/2024 11:19 AM CDT Body Mass Index 28.14 05/26/2024 11:19 AM CDT Plan of Treatment Not on file Medical Devices Implanted Type Area Industrial Psychology Professor Device Identifier Shelf Expiration Date Model / Serial / Lot Stimulator- [id number] Implanted:Qty: 1 on 08/08/2023 by Kalyani Gonsalez MD Stimulator N/A: Spine Thoracic Anders ETERNA [id number] / [id number] / Description:Eterna IPC [id number] with two 3186 leads 1.5T only this unit replaced the older unit all older components removed per pt Unit must be placed in mri mode Kit Neurostimulator Octrode L60 Cm Percutaneous 8 Electrode Lead - [id number] Implanted:Qty: 1 on 06/27/2017 by Kalyani Gonsalez MD at [facility] N/A: Spine Lumbar [employer] 12/27/2018 [id number] / / [id number] Kit Neurostimulator Octrode L60 Cm Percutaneous 8 Electrode Lead - [id number] Implanted:Qty: 1 on 06/27/2017 by Kalyani Gonsalez MD at [facility] N/A: Spine Lumbar [employer] 04/21/2019 [id number] / / [id number] Olds Lead Junior-Lock - [id number] Implanted:Qty: 1 on 06/27/2017 by Kalyani Gonsalez MD at [facility] N/A: Spine Lumbar [employer] 03/26/2019 1192 / / [id number] Olds Lead Junior-Lock - [id number] Implanted:Qty: 1 on 06/27/2017 by Kalyani Gonsalez MD at [facility] N/A: Spine Lumbar [employer] 07/31/2018 1192 / / [id number] [employer] 3660 Contrlsys Proclaim Elite 4.95cmx5.55cm 5 Implantable Pulse Tonic - [id number] Implanted:Qty: 1 on 11/27/2018 by Kalyani Gonsalez MD at [facility] N/A: Spine Lumbar [employer] 07/02/2020 3660 CONTRLSYS / / [id number] Explanted Type Area Industrial Psychology Professor Device Identifier Shelf Expiration Date Model / Serial / Lot Generator Neurostimulator Proclaim Elite Thk.53 In L2.63 In X H1.98 In 2.1 Oz 7 Ipg Implantable Recharge Free Chronic Pain - [id number] Implanted:Qty: 1 on 06/27/2017 by Kalyani Gonsalez MD at [facility] Explanted:Qty: 1 on 11/27/2018 by Kalyani Gonsalez MD at [facility] N/A: Spine Lumbar [employer] 05/07/2019 3662 / / [id number] Description:EXPLANT INTACT A ND GIVEN TO ST [...] Read Routine (OP Routine) 01/20/2024 2:25 PM SEED EXPERT Screening mammogram, encounter for HEPATITIS PANEL, ACUTE Routine 11/04/2018 10:36 AM CDT Multiple sclerosis (HCC) Encounter for other specified special examinations Other fatigue from Last 3 Months or Most Recently Relevant to Health Maintenance Results * Differential, auto (05/26/2024 12:09 PM CDT) Neutrophil abs 4.28 1.50 - 6.50 K/cumm Imm gran abs 0.02 0.00 - 0.10 K/cumm [facility] Lymphocyte abs 1.26 0.80 - 3.30 K/cumm [facility] Monocyte abs 0.49 0.20 - 0.80 K/cumm [facility] Eosinophil abs 0.11 0.00 - 0.50 K/cumm [facility] Basophil abs 0.05 0.00 - 0.10 K/cumm [facility] Neutrophil pct 68.9 % [facility] Comment: Interpretive Data Percent cell count reference ranges are not reported, since discordance with absolute values may lead to misinterpretation of CBC data. Current Interpretive Data was last revised on 2017. Imm gran pct 0.3 % [facility] Comment: Interpretive Data Percent cell count reference ranges are not reported, since discordance with absolute values may lead to misinterpretation of CBC data. Current Interpretive Data was last revised on 2017. Lymphocyte pct 20.3 % [facility] Comment: Interpretive Data Percent cell count reference ranges are not reported, since discordance with absolute values may lead to misinterpretation of CBC data. Current Interpretive Data was last revised on 2017. Monocyte pct 7.9 % [facility] Comment: Interpretive Data Percent cell count reference ranges are not reported, since discordance with absolute values may lead to misinterpretation of CBC data. Current Interpretive Data was last revised on 2017. Eosinophil pct 1.8 % [facility] Comment: Interpretive Data Percent cell count reference ranges are not reported, since discordance with absolute values may lead to misinterpretation of CBC data. Current Interpretive Data was last revised on 2017. Basophil pct 0.8 % [facility] Comment: Interpretive Data Percent cell count reference ranges are not reported, since discordance with absolute values may lead to misinterpretation of CBC data. Current Interpretive Data was last revised on 2017. Blood 05/26/2024 12:0 9 PM CDT 05/26/2024 2:49 PM CDT us Garret Elias MD LAB BLOOD ORDERABLES Final Re sult [facility] [address] Department [place] [address] * TB test, quantiferon gold (05/26/2024 12:09 PM CDT) [facility] Quantiferon TB Gold Negative Negative [facility] Comment: No interferon-gamma response to M. [...] Interferon-gamma level <0.35 IU/mL. TB-Nil 0.00 IUnits/mL [facility] TB2-Nil -0.01 IUnits/mL [facility] Mitogen-Nil 9.97 IUnits/mL [facility] NIL 0.03 IUnits/mL [facility] Comment: Test Performed by: [facility] [address] [place], [place] [id number] Search Engine Optimization Specialist: Ariane Johnston Ph.D.; CLIA# [id number] Blood 05/26/2024 12:0 9 PM CDT 05/26/2024 2:51 PM CDT us Garret Elias MD LAB BLOOD ORDERABLES Final Re sult [facility] [address] Department [place] [address] [facility] * (ABNORMAL) CBC with auto differential (05/26/2024 12:09 PM CDT) WBC 6.21 3.80 - 9.90 K/cumm Hgb 13.2 11.9 - 15.5 g/dL [facility] Hct 42.1 35.6 - 45.5 % [facility] Plt 286 150 - 400 K/cumm [facility] MPV 10.2 9.1 - 12.3 fL [facility] RBC 4.72 3.90 - 5.20 M/cumm [facility] MCV 89.2 81.3 - 96.4 fL [facility] MCH 28.0 27.1 - 33.3 pg [facility] MCHC 31.4(L) 32.3 - 35.7 g/dL [facility] RDW CV 13.9 11.1 - 14.9 % [facility] RDW SD 45.1 35.7 - 48.1 fL [facility] NRBC abs 0.00 0.00 - 0.01 K/cumm [facility] Blood 05/26/2024 12:0 9 PM CDT 05/26/2024 2:49 PM CDT Garret Elias MD LAB BLOOD ORDERABLES Final Re sult Performing Organization Address [facility] de Phone Number [facility] [address] Department [place] [address] * Hepatic function panel (05/26/2024 12:09 PM CDT) Bilirubin, total 0.5 0.1 - 1.2 mg/dL Bilirubin, direct <0.2 0.1 - 0.3 mg/dL [facility] Protein, pl 6.7 6.5 - 8.5 g/dL [facility] Albumin 4.3 3.5 - 5.0 g/dL [facility] Alk phos 111 40 - 130 Units/L [facility] ALT 15 7 - 45 Units/L [facility] AST 18 10 - 45 Units/L [facility] Blood 05/26/2024 12:0 9 PM CDT 05/26/2024 2:49 PM CDT Garret Elias MD LAB BLOOD ORDERABLES Final Re sult Performing Organization Address [facility] de Phone Number [facility] [address] [place] [address] * Screening Mammogram Bilateral W Dick (01/20/2024 2:25 PM SEED EXPERT) Anatomical Region Laterality Modality Breast Bilateral Mammography Narrative 01/21/2024 4:13 PM SEED EXPERT Mammogram Technique: Bilateral Digital Breast Tomosynthesis, Bilateral C-view 2D Screening mammogram. Views obtained: bilateral craniocaudal and bilateral mediolateral oblique. Computer Aided Detection was performed. Mammogram Findings: The present examination has been compared to prior imaging studies performed at [facility] on 01/13/2023, and at [facility] on 02/28/2021 and 10/30/2022. There are [...] compared to prior imaging studies performed at [facility] on 01/13/2023, and at [facility] on 02/28/2021 and 10/30/2022. There are scattered areas of fibroglandular density. There is no suspicious abnormality in either breast. Impression: There is no mammographic evidence of malignancy. Annual screening mammography is recommended. OVERALL FINAL ASSESSMENT: BI-RADS CATEGORY 1: Negative. Self Screening Mammogram IMG MAMMO PROCEDURES Fi nal Result * Hepatitis panel, acute (11/04/2018 10:36 AM CDT) Hep A IgM Non-Reactive Non-Reactive [facility] Hep B core IgM Non-Reactive Non-Reactive [facility] Hep C Ab Non-Reactive Non-Reactive [facility] HepBsAg Nonreactive Nonreactive [facility] Blood specimen (specimen) 11/04/2018 10:36 AM CDT 11/04/2018 12:46 PM CDT Angélica Aviles NP LAB MICROBIOLOGY - GENERAL ORDER GÉNESIS Final Result [facility] [address] [place] [address] from Last 3 Months or Most Recently Relevant to Health Maintenance 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 Address: [address] [place] [address] [facility]ICARE [facility] Advance Directives For more information, please contact: [phone] * Full Code (Latest Code Status on File) Date Activated Date Inactivated Comments 11/27/2018 4:29 PM 11/27/2018 8:29 PM Care Teams Poultry Hatchery Laborer Relationship Specialty Start Date End Date Arthur Landon MD [address] [facility] [address] [place] [address] PCP - General Family Medicine 10/28/23
--- OUTSIDE RECORDS SUMMARY | 2024-07-06 09:58 | XMS_ITS | Data Portability ---
Author Organization [facility] [place] [facility], Main Office Address [address] [place] [address] Assessment No assessment recorded. Plan of Treatment Reminders Order Date Submit Date Provider Last Modified By Organization Details Last Modified Time Details Appointments None recorded. Lab None recorded. Referral None recorded. Procedures None recorded. Surgeries None recorded. Imaging None recorded. Medication Orders clobetasol 0.05 % topical cream 2021 022 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 #[id number], [address], [place], [address], 12:16:38 Otezla 30 mg tablet 2021 022 [facility], [facility], [place], [address], 12:22:19 Patient TargetsNo targets recorded. Patient Instructions Encounter Date Encounter Id Patient Instructions Last Modified By Organization Details Last Modified Time 09/14/2021 [id number] OTEZLA RESTART- was controlling it well when she was on it. 1 MONTH - GIVEN SAMPLES Revd dx and tx. FU 6 mos. [email or web address] Not available 10/10/2021 14:08:26 Reason for Referral None Reported. Problems Name Problem SNOMED Code Status Onset Date Resolution Date Notes Provider Name and Address Organization Details Recorded Time Psoriasis vulgaris 176487544 Active 2021 Tyrell López MD [address], [place], [phone] [place] [address] Dermatology 14:43:09 Taking medication for chronic disease 1028582184569 01 Active 2021 Tyrell López MD [address], [place], [phone], [facility] Dermatology 2 14:43:12 Problem Notes None recorded. Medical Equipment None Reported. Allergies Allergen ID Allergen Name Allergen Category Reaction Reaction Severity Criticality Documentation Date Start Date Code Code System Note Provider Name and Address Organization Details Recorded Time 328 acetamino phen / hydrocodo ne medicatio n Not available Not available Not available 08/12/2017 77157 2 RxNorm Leanne Ochoa [facility] [place] 8 11:08:17 Medications Name Sig Start [...] SNOMED-CT Code Diagnosis ICD10 Code Diagnosis Note [id number] Tyrell López MD Main Office [address] [facility] [address] [place] [phone] 09/14/2021 11:55:55 10/21/2021 16:54:12 Psoriasis vulgaris 363504530 L40.0 Health Concerns Section Related Observation LastModified by Organization Cora ramirez LastModified Time None Recorded Concern Status LastModified by Organization Details LastModified Time None Recorded Advance Directives Directive None Recorded Payers Encounter Date Sequence Insurance Name Policy Number Policy Castro Covered Member ID Castro Member ID Guarantor Name 09/14/2021 2 [place] Desirae Ballesteros [id number] Desirae Ballesteros 09/14/2021 1 [employer] (POS) [id number] Dheeraj Ballesteros [id number] Desirae Ballesteros Notes Date Note Type Note Provider Name and Address Organization Details Recorded Time 09/14/2021 text/html FU PSORIASIS. LEGS, ELBOWS SCALP.NEEDS RFS ON THE CLOB CREAM, HAS DAVID SCALP.Doing well overall than prior to Otezla but has been out of Otezla for awhile. Needs med. Tyrell López MD [address] [facility] [facility] [address], [place], [address], [facility] 10/21/2021 16:51:22 OBGyn Episode No OBEpisode recorded.
--- OUTSIDE RECORDS SUMMARY | 2024-07-06 09:58 | XMS_ITS | Encounter Summary ---
Author Organization [facility] Healthcare Address [address] [place] [address] Care Team Providers Care Stiff Leg Operator Name Role Phone Arthur Landon MD Primary Care Provider Tyrell Modi Primary Care Provider [phone] Arthur Landon MD Primary Care Provider Encounter Details Date Type Department Care Team (Late st Contact Info) Description 08/24/2020 Telephone [facility] [address] [place] [address] Transcribed Order, Provider Social History Tobacco Use Types Packs/Day Years Used Date Smoking Tobacco: Never Smokeless Tobacco: Never Alcohol Use Standard Drinks/Week Comments No 0 (1 standard drink = 0.6 oz pur e alcohol) Comments Unknown Sex and Gender Information Value Date Recorded Sex Assigned at Not on file 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 Gender Identity Female 11/20/2023 11:28 AM CDT Sexual Orientation Straight 11/20/2023 11 :28 AM CDT documented as of this encounter Plan of Treatment Not on file documented as of this encounter Visit Diagnoses Not on filedocumented in this encounter Care Teams Stiff Leg Operator Relationship Specialty Start Date End Date Arthur Landon MD [address] [facility] [address] [place] [address] PCP - General 05/17/16 12/15/22 Tyrell Modi PA [address] [facility] [address] [place] [address] PCP - General Physician Bookbinder Apprentice 12/16/22 10/27/23 Arthur Landon MD [address] [facility] [address] [place] [address] PCP - General Family Medicine 10/28/23 documented as of this encounter
--- OUTSIDE RECORDS SUMMARY | 2024-07-06 09:58 | XMS_ITS | Clinical Summary ---
Author Organization [facility] Address [address] [place] [address] Care Team Providers Care Social Problems Specialist Name Role Phone Arthur Landon MD Primary Care Provider [phone] Source Comments [facility],non-owned Affiliates and Associated Physician Practices is amultiple site organization consisting of ambulatory clinics and hospital sitesin [place], [place], [place] and [place]. This disclosure is being madepursuant to the Care Everywhere program and may not contain all information available regarding this patient. Last updated 17.[facility] Allergies Active Allergy Reactions Criticality Noted Date Comments Sulfamethoxazole W-Trimethoprim Rash Medium 05/18 Clarithromycin 02/24/2016 Hydrocodone-Acetaminophen 02/24/2016 Medications * Be aware that medications may not be up to date on this document. Alwaysverify current medications with the patient. METFORMIN HCL PO Act mar Natalizumab (TYSABRI IV) Active DULoxetine (CYMBALTA) 60 MG capsule Take 90 mg by mouth once daily Active gabapentin PHN (GRALISE) 300 MG tablet Take 900 mg by mouth daily with dinner Active BACLOFEN PO Active CLONAZEPAM PO Active Mometasone Furo-Formoterol Fum (DULERA IN) Acti ve Cholecalciferol (VITAMIN D-3 PO) Act mar Calcium Carbonate (CALTRATE 600 PO) Active CRANBERRY FRUIT PO Active B Complex Vitamins (VITAMIN B COMPLEX PO) Active Multiple Vitamins-Mineral s (EMERGEN-C IMMUNE PO) Active fluticasone propionate (FLONASE) 50 MCG/ACT nasal spray [place] 1 [place] into each nostril 2 times daily 1 Bottle 1 7 Active pregabalin (LYRICA) 50 MG capsule Take 50 mg by mouth 3 times daily Active buPROPion SR 12hr (WELLBUTRIN SR) 150 MG tablet Take 150 mg by mouth 2 times daily Active albuterol HFA (PROVENTIL;BON KJ;PROAIR) 108 (90 BASE) MCG/ACT inhalerIndicatio ns:Asthma with acute exacerbation, unspecified asthma severity, unspecified whether persistent (HCC) Inhale 2 puffs by mouth every 4 hours as needed for Shortness of Breath, Wheezing or Cough 1 Inhaler 8 Active Social History Tobacco Use Types Packs/Day Years Used Date Smoking Tobacco: Never Smokeless Tobacco: Never Comments No Sex and Gender Information Value Date Recorded Sex Assigned at Not on file Legal 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 Gender Identity Not on file Sexual Orientation [...] SCREENING 1967 LIPID TESTING 1967 MAMMOGRAM 1967 HIV SCREENING 1982 HEPATITIS C SCREENING 02/09/1985 DTAP/TDAP/TD VACCINES (1 - Tdap) 1986 HEPATITIS B VACCINE (1 of 3 - 19+ 3-dose series) 1986 PNEUMOCOCCAL VACCINE 50+ (1 of 1 - PCV) 2017 ZOSTER VACCINE (1 of 2) 2017 SCREENING FOR DIABETES 03/12/2017 COVID-19 VACCINE (1 - 2023-2 5 season) 2023 DEPRESSION SCREENING 02/18/2024 INFLUENZA VACCINE (Season Ended) 2024 01/18/2016, 02/17/2007 HIB VACCINE Aged Out No longer eligi [...] patient's age to complete this topic Insurance AET MEDICARE AETNA MEDICARE Care Teams Social Problems Specialist Relationship Specialty Start Date End Date Arthur Landon MD [address] [place] [address] PCP - General Family Medicine 02/24/16
== END 2024-07-06 09:45 | disposition home or self-care (01) ==
PROVIDERS: PCP Family Medicine; Visit Provider Neurological Surgery
DX: M47.812 Spondylosis without myelopathy or radiculopathy, cervical region (principal); Z98.1 Arthrodesis status
CPT/HCPCS: 72040

== ENCOUNTER 2024-10-20 12:02 | Outpatient (CLI) | payer OTHER, MEDICARE, SELFPAY ==
--- OUTSIDE RECORDS SUMMARY | 2020-01-19 01:00 | XMS_ITS | Encounter Summary ---
Author Organization [facility] Healthcare Address [address] [place] [address] Care Team Providers Care Parent Aide Name Role Phone Arthur Landon MD Primary Care Provider Reason for Visit * Diagnostic Imaging (Routine) - Closed Specialty Diagnoses / Procedures Referred By Contac t Referred To Contact Procedures Breast Imaging Screening Outside Reference Transcribed Order, Provider Referral ID Status Reason Start Date Expiration Date Visits Re quested Visits Authorized [id number] Closed 01/08/2023 02/07/2024 1 1 Encounter Details Date Type Department Care Team (Late st Contact Info) Description 01/19/2020 Hospital Encounter [facility] [address] [place] [id number] Social History Tobacco Use Types Packs/Day Years Used Date Smoking Tobacco: Never Smokeless Tobacco: Never Alcohol Use Standard Drinks/Week Comments No 0 (1 standard drink = 0.6 oz pur e alcohol) Comments No Sex and Gender Information Value Date Recorded Sex Assigned at Not on file Legal Sex Female 1:09 AM BETTING CLERKS Gender Identity Female 11/20/2023 11:28 AM CDT Sexual Orientation Straight 11/20/2023 11 :28 AM CDT documented as of this encounter Plan of Treatment Not on file documented as of this encounter Procedures Procedure Name Priority Date/Time Associated Diagnosis Comments BREAST IMAGING MG SCREENING OUTSIDE REFERENCE Routine 01/19/2020 12:00 AM BETTING CLERKS documented in this encounter Results * Breast Imaging Screening Outside Reference (01/19/2020 12:00 AM BETTING CLERKS) Impressions [facility] - 01/08/2023 11:25 AM BETTING CLERKS These images are for Reference purposes only and have not been reviewed by [facility] Radiology. There will be no report generated by a [facility] Radiologist. Narrative [facility] - 01/08/2023 11:25 AM BETTING CLERKS EXAMINATION: Images For Reference Purposes Only us Provider Transcribed Order IMG MAMMO PROCEDURES Final Result [facility] documented in this encounter Visit Diagnoses Not on filedocumented in this encounter Care Teams Parent Aide Relationship Specialty Start Date End Date Arthur Landon MD [address] [facility] [address] [place] [address] PCP - General 05/17/16 12/15/22 documented as of this encounter
--- NOTE | ~2024-10-20 | XR_ITS ---
XR_CERV2-3V_CR 10/20/2024 12:18 Indication: Arthrodesis status Procedure: 3 views cervical spine Comparison: 07/06/2024 Findings: Hardware intact status post fusion at C3 C7. There are prosthetic disc devices at these levels. No fracture, subluxation or dislocation. No significant alteration of alignment. Odontoid process is normal. There is multilevel facet degenerative change. No prevertebral soft tissue swelling. Impression: 1: Stable appearance to fusion of the cervical spine compared with prior study. No significant interval change. Reviewed, dictated and finalized at location O. Impression: 1: Stable appearance to fusion of the cervical spine compared with prior study. No significant interval change.
--- OUTSIDE RECORDS SUMMARY | 2024-10-20 13:37 | XMS_ITS | Clinical Summary ---
Author Organization [facility] Address [address] [place] [address] Phone Care Team Providers Care Coach Name Role Phone Arthur Landon MD Primary Care Provider Active Problems Problem Noted Date Diagnosed Date Chronic pain syndrome 03/28/2017 Somatic symptom disorder, pe rsistent, severe, with predominant pain 03/28/2017 Social History Tobacco Use Types Packs/Day Years Used Date Smoking Tobacco: Never Assessed Comments Unknown Sex and Gender Information Value Date Recorded Sex Assigned at Not on file Legal Sex Female 10:59 AM STEEPLE JACK Gender Identity Not on file Sexual Orientation Not on file Plan of Treatment Health Maintenance Due Date Last Done Comments Hepatitis C Virus (HCV) Screening 1965 TdaP Immunization 1967 Hepatitis B Immunization (1 of 3 - 19+ 3-dose series) 1986 Pap Smear 02/15/1988 Cervical Cancer Screening (CCS) 1997 HPV/Cotest 1997 Cologuard 02/15/2012 Colonoscopy 02/15/2012 Colorectal Cancer Screening 02/15/2012 Immunochemical Fecal Occult Blood 02/15/2012 Pneumococcal Immunization (5 0+ years) (1 of 1 - PCV) 2017 Zoster Immunization (1 of 2) 2017 Influenza Immunization (#1) 2024 SARS-COV-2 Immunization ( - season) 2024 Respiratory Syncytial Virus (RSV) Immunization (Adult) (1 - 1-dose 75+ series) 2042 Human Papillomavirus (HPV) Immunization Aged Out No longer eligible b ased on patient's age to complete this topic Meningococcal Immunization (ACWY) Aged Out No longer eligible based on patient's age to complete this topic Rotavirus Immunization Aged Out No lo nger eligible based on patient's age to complete this topic Insurance MEDICARE Care Teams Coach Relationship Specialty Start Date End Date Arthur Landon MD [address] [place] [address] PCP - General Family Medicine 03/20/17
--- OUTSIDE RECORDS SUMMARY | 2024-10-20 13:37 | XMS_ITS | Encounter Summary ---
Author Organization [facility] Address [address] [place] [address] Care Team Providers Care Assistant Spa Director Name Role Phone Arthur Landon MD Primary Care Provider Tyrell Modi Primary Care Provider [phone] Artuhr Landon MD Primary Care Provider Encounter Details Date Type Department Care Team (Late st Contact Info) Description 08/24/2020 Telephone [facility] - Imaging [address] [place] [address] Transcribed Order, Provider Social History Tobacco Use Types Packs/Day Years Used Date Smoking Tobacco: Never Smokeless Tobacco: Never Alcohol Use Standard Drinks/Week Comments No 0 (1 standard drink = 0.6 oz pur e alcohol) Comments Unknown Sex and Gender Information Value Date Recorded Sex Assigned at Not on file Legal Sex Female 1:09 AM 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 Gender Identity Female 11/20/2023 11:28 AM CDT Sexual Orientation Straight 11/20/2023 11 :28 AM CDT documented as of this encounter Plan of Treatment Not on file documented as of this encounter Visit Diagnoses Not on filedocumented in this encounter Care Teams Assistant Spa Director Relationship Specialty Start Date End Date Arthur Landon MD [address] [facility] [address] [place] [address] PCP - General 05/17/16 12/15/22 Tyrell Modi PA [address] [facility] [address] [place] [address] PCP - General Physician Home Economist 12/16/22 10/27/23 Arthur Landon MD [address] [facility] [address] [place] [address] PCP - General Family Medicine 10/28/23 documented as of this encounter
--- OUTSIDE RECORDS SUMMARY | 2024-10-20 13:37 | XMS_ITS | Clinical Summary ---
Author Organization [facility] Address [address] [place] [address] Care Team Providers Care Closing Agent Name Role Phone Arthur Landon MD Primary [...] Lifevantage Protandim NRF2 Synergizer 1 daily. Active dextromethorphan -bupropion (AUVELITY) 45-105 mg tablet, IR & ER, biphasic Take 1 tablet by mouth 2 (two) times a day Active baclofen (LIORESAL) 20 mg tablet TAKE 1 TABLET BY MOUTH TWICE A DAY 180 tablet 3 4 Active gabapentin (NEURONTIN) 300 mg capsule TAKE [...] mouth daily 90 tablet [address] (CYMBALTA) 60 mg capsule TAKE 1 CAPSULE BY MOUTH TWICE A DAY 180 capsule 3 5 Active clonazePAM (KlonoPIN) 0.5 mg tabletIndication s:Multiple sclerosis (HCC) TAKE 1 TABLET BY MOUTH EVERY MORNING AND TAKE 2 TABLETS AT NIGHT 90 tablet 5 5 Active Active Problems Problem Noted Date [...] contraindicated. Assessment & Plan (04/24/2022 6:56 AM ELECTRIC SPOT WELDER): Currently on Otezla (apremilast). Additive risks in [...] hand numbness when waking and driving. 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 EMG/NCS 04/26/20 formed at [facility]: Bilateral carpal tunnel syndrome, sensory more than motor. Bilateral wrist splints. Prefers to hold off on surgery. Assessment & Plan (04/24/2022 7:02 AM ELECTRIC SPOT WELDER): Bilateral hand numbness when waking and driving. 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 EMG/NCS 04/26/20 formed at [facility]: Bilateral carpal tunnel syndrome, sensory more than motor. Bilateral wrist splints. Assessment & Plan (03/13/2022 12:19 PM ELECTRIC SPOT WELDER): Bilateral hand numbness when waking and driving. 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 EMG/NCS 04/26/20 formed at [facility]: Bilateral carpal tunnel syndrome, sensory more than motor. Bilateral wrist splints. Assessment & Plan (09/13/2021 7:40 AM CDT): Bilateral hand numbness when waking and driving. 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 EMG/NCS 04/26/20 formed at [facility]: Bilateral carpal tunnel syndrome, sensory more than motor. Bilateral wrist splints. Assessment & Plan (03/15/2021 1:22 PM ELECTRIC SPOT WELDER): Bilateral hand numbness when waking and driving. 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 EMG/NCS 04/26/20 formed at [facility]: Bilateral carpal tunnel syndrome, sensory more than motor. Bilateral wrist splints. Assessment & Plan (06/01/2020 8:33 AM CDT): Bilateral hand numbness when waking and driving. 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 EMG/NCS at [facility] was apparently consistent with bilateral carpal tunnel syndrome. Report requested. Wrist splints ordered. Cervical spinal stenosis 05/18/2019 Assessment & Plan (10/15/2023 6:36 AM CDT): Status post anterior cervical diskectomy and fusion with Dr. Dheeraj Alejandro August 2018 Assessment & Plan (04/24/2022 7:03 AM ELECTRIC SPOT WELDER): Status post anterior cervical diskectomy and fusion with Dr. Dheeraj Alejandro August 2018 Assessment & Plan (03/13/2022 12:27 PM ELECTRIC SPOT WELDER): Status post anterior cervical diskectomy and fusion with Dr. Dheeraj Alejandro August 2018 Assessment & Plan (09/13/2021 7:40 AM CDT): Status post anterior cervical diskectomy and fusion with Dr. Dheeraj Alejandro August 2018 Assessment & Plan (03/15/2021 12:55 PM ELECTRIC SPOT WELDER): Status post anterior cervical diskectomy and fusion [...] Hylton. Assessment & Plan (04/24/2022 7:03 AM ELECTRIC SPOT WELDER): Severe L4-5 lumbar stenosis and daniel severe L5-S1 NF stenosis. Cymbalta, Neurontin F/u pain management Had neurostimulator placed (MRI compatible) Seen Dr. Hylton. Assessment & Plan (03/13/2022 12:27 PM ELECTRIC SPOT WELDER): Severe L4-5 lumbar stenosis and daniel severe L5-S1 NF stenosis. Cymbalta, Neurontin F/u pain management Had neurostimulator placed (MRI compatible) Seen Dr. Hylton. Assessment & Plan (09/13/2021 7:40 AM CDT): Severe L4-5 lumbar stenosis and daniel severe L5-S1 NF stenosis. Cymbalta, Neurontin F/u pain management Had neurostimulator placed (MRI compatible) Seen Dr. Hylton. Assessment & Plan (03/15/2021 12:54 PM ELECTRIC SPOT WELDER): Severe L4-5 lumbar stenosis and daniel severe [...] past Assessment & Plan (04/24/2022 7:03 AM ELECTRIC SPOT WELDER): Improved post-menopause Excedrin as needed On Topamax in past Assessment & Plan (03/13/2022 12:27 PM ELECTRIC SPOT WELDER): Improved post-menopause Excedrin as needed On Topamax in past Assessment & Plan (09/13/2021 7:41 AM CDT): Improved post-menopause Excedrin as needed On Topamax in past Assessment & Plan (03/15/2021 12:54 PM ELECTRIC SPOT WELDER): Improved post-menopause Excedrin as needed On Topamax [...] follow-up Assessment & Plan (04/24/2022 7:04 AM ELECTRIC SPOT WELDER): Cymbalta 60 mg BID Bupropion XL 150 mg daily Psychiatry follow-up Assessment & Plan (03/15/2022 7:06 AM ELECTRIC SPOT WELDER): Cymbalta 60 mg BID Bupropion XL 150 mg daily Psychiatry follow-up Assessment & Plan (09/13/2021 7:41 AM CDT): Cymbalta 60 mg BID Bupropion XL 150 mg daily Increased stress with marital issues and daughter with anxiety/depression. Assessment & Plan (03/15/2021 1:21 PM ELECTRIC SPOT WELDER): Cymbalta 60 mg BID Bupropion XL 300 [...] stimulator. Assessment & Plan (04/24/2022 7:02 AM ELECTRIC SPOT WELDER): Kesimpta discontinued on April 08, 2022 due [...] October 2022. Future MRI imaging at [facility] (has MRI-compatible spinal cord stimulator). Assessment & Plan (03/15/2022 7:05 AM ELECTRIC SPOT WELDER): Kesimpta 20 mg subcutaneous monthly. The benefits [...] October 2022. Future MRI imaging at [facility] (has MRI-compatible spinal cord stimulator). [...] October 2022. Future MRI imaging at [facility] (has MRI-compatible spinal cord stimulator). Assessment & Plan (03/15/2021 1:19 PM ELECTRIC SPOT WELDER): Kesimpta 20 mg subcutaneous monthly. The benefits [...] D3 supplement. Future MRI imaging at [facility] (has MRI-compatible spinal cord stimulator) [...] and cervical spine July 2020 at [facility] (has MRI- compatible spinal cord [...] is model number 3662 and compatible per zoology technical officer manual for an MRI with 1.5T She [...] you have not heard about your MRI [phone]. Assessment & Plan (09/20/2016 8:14 AM CDT): [...] (11/24/2018): Added automatically from request for surgery [id number] Vitamin D deficiency 04/28/2017 018 Assessment & [...] (HCC) Diabetes Hyperlipidemia Type 2 diabetes mellitus Family History Medical History Relation Name Comments [...] on file Legal Sex Female 1:09 AM ELECTRIC SPOT WELDER Gender Identity Female 11/20/2023 11:28 AM CDT Sexual Orientation Straight 11/20/2023 11 :28 AM CDT Obstetrics History Last Filed Vital Signs Vital Sign Reading Time Taken Comments Blood Pressure 102/56 05/26/2024 11:19 AM CDT Pulse 109 05/26/2024 11:19 AM CDT Temperature 36.3 C (97.3 F) 05/26/2024 11:19 AM CDT Respiratory Rate 18 12/21/2018 1:39 PM ELECTRIC SPOT WELDER Oxygen Saturation 97% 05/26/2024 11:19 AM CDT Inhaled Oxygen Concentration - - Weight 84 kg (185 lb 1.6 oz) 05/26/2024 11:19 AM CDT Height 172.7 cm (5' 8) 05/26/2024 11:19 AM CDT Body Mass Index [...] 06/12/2020, Additional history exists Influenza Vaccine (#1) 2024 , 12/07/2020, 12/21/2019, Additional history exists Breast Cancer Screening-Mammogram 01/19/2025 024 DTaP/Tdap/Td Vaccine (2 - Td or Tdap) 04/27/2029 04/28/2019 Hepatitis C Screening Completed 11/04/2018 Zoster Vaccine Completed 11/16/2018, 01/12/2018 Medical Devices Implanted Type Area Crown Buffer Device Identifier Shelf Expiration Date Model / Serial / Lot Stimulator- Implanted:Qty: 1 on 08/08/2023 by Kalyani Gonsalez MD Stimulator N/A: Spine Thoracic Anders ETERNA [id number] / [id number] / Description:Eterna IPC 41230 with two 3186 leads 1.5T only this unit replaced the older unit all older components removed per pt Unit must be placed in mri mode Kit Neurostimulator Octrode L60 Cm Percutaneous 8 Electrode Lead - [id number] Implanted:Qty: 1 on 06/27/2017 by Kalyani Gonsalez MD at [facility] N/A: Spine Lumbar [employer] 12/27/2018 [id number] / / [id number] Kit Neurostimulator Octrode L60 Cm Percutaneous 8 Electrode Lead - [id number] Implanted:Qty: 1 on 06/27/2017 by Kalyani Gonsalez MD at [facility] N/A: Spine Lumbar [employer] 04/21/2019 [id number] / / [id number] [place] Lead Junior-Lock - [id number] Implanted:Qty: 1 on 06/27/2017 by Kalyani Gonsalez MD at [facility] N/A: Spine Lumbar [employer] 03/26/2019 1192 / / [id number] [place] Lead Junior-Lock - [id number] Implanted:Qty: 1 on 06/27/2017 by Kalyani Gonsalez MD at [facility] N/A: Spine Lumbar [employer] 07/31/2018 1192 / / [id number] [employer] 3660 Contrlsys Proclaim Elite 4.95cmx5.55cm 5 Implantable Pulse Tonic - [id number] Implanted:Qty: 1 on 11/27/2018 by Kalyani Gonsalez MD at [facility] N/A: Spine Lumbar [employer] 07/02/2020 3660 CONTRLSYS / / [id number] Explanted Type Area Crown Buffer Device Identifier Shelf Expiration Date Model / Serial / Lot Generator Neurostimulator Proclaim Elite Thk.53 In L2.63 In X H1.98 In 2.1 Oz 7 Ipg Implantable Recharge Free Chronic Pain - [id number] Implanted:Qty: 1 on 06/27/2017 by Kalyani Gonsalez MD at [facility] Explanted:Qty: 1 on 11/27/2018 by Kalyani Gonsalez MD at [facility] N/A: Spine Lumbar [employer] 05/07/2019 3662 / / [id number] Description:EXPLANT INTACT A ND GIVEN TO [facility] TO TAKE FOR INTERROGATION Procedures Procedure Name Priority Date/Time Associated Diagnosis Comments HEPATIC FUNCTION PANEL Routine 09/16/2024 1:37 PM CDT Multiple sclerosis (HCC) Medication management HEPATIC FUNCTION PANEL Routine 08/17/2024 11:35 AM CDT Multiple sclerosis (HCC) Medication management SCREENING MAMMOGRAM BILATERAL W DICK Schedule Routine, Read Routine (OP Routine) 01/20/2024 2:25 PM ELECTRIC SPOT WELDER Screening mammogram, encounter for HEPATITIS PANEL, ACUTE Routine 11/04/2018 10:36 AM CDT Multiple sclerosis (HCC) Encounter for other specified special examinations Other fatigue from Last 3 Months or Most Recently Relevant to Health Maintenance Results * Hepatic function panel (09/16/2024 1:37 PM CDT) Protein, Total 6.7 6.4 - 8.4 g/dL [facility] Albumin 4.5 3.6 - 5.1 g/dL [facility] Globulin 2.2 2.2 - 4.0 g/dL (calc) [facility] Alb/glob ratio 2.0 0.9 - 2.3 (calc) [facility] Bilirubin, total 0.4 0.2 - 1.2 mg/dL [facility] Bilirubin, direct 0.1 < OR = 0.2 mg/dL [facility] Bilirubin, indirect 0.3 0.2 - 1.2 mg/dL (calc) [facility] Alk phos 81 37 - 153 U/L [facility] AST 13 10 - 35 U/L [facility] ALT (SGPT) 14 6 - 29 U/L [facility] Blood 09/16/2024 1:37 PM CDT 09/16/2024 1:38 PM CDT us Garret Elias MD LAB BLOOD ORDERABLES Final Re sult [facility] [address] [place] [address] * Hepatic function panel (08/17/2024 11:35 AM CDT) Pathologist [facility] Protein, Total 6.6 6.4 - 8.4 g/dL [facility] Albumin 4.3 3.6 - 5.1 g/dL [facility] Globulin 2.3 2.2 - 4.0 g/dL (calc) [facility] Alb/glob ratio 1.9 0.9 - 2.3 (calc) [facility] Bilirubin, total 0.4 0.2 - 1.2 mg/dL [facility] Bilirubin, direct 0.1 < OR = 0.2 mg/dL [facility] Bilirubin, indirect 0.3 0.2 - 1.2 mg/dL (calc) [facility] Alk phos 94 37 - 153 U/L [facility] AST 17 10 - 35 U/L [facility] ALT (SGPT) 16 6 - 29 U/L [facility] Blood 08/17/2024 11:3 5 AM CDT 08/17/2024 11:36 AM CDT us Garret Elias MD LAB BLOOD ORDERABLES Final Re sult PAZ [facility] [address] [facility] [place] [address] * Screening Mammogram Bilateral W Dick (01/20/2024 2:25 PM ELECTRIC SPOT WELDER) Anatomical Region Laterality Modality Breast Bilateral Mammography Narrative 01/21/2024 4:13 PM ELECTRIC SPOT WELDER Mammogram Technique: Bilateral Digital Breast Tomosynthesis, Bilateral C-view 2D Screening mammogram. Views obtained: bilateral craniocaudal and bilateral mediolateral oblique. Computer Aided Detection was performed. Mammogram Findings: The present examination has been compared to prior imaging studies performed at [facility] on 01/13/2023, and at [facility] on 02/28/2021 and 10/30/2022. There are [...] to prior imaging studies performed at [facility] on 01/13/2023, and at [facility] on 02/28/2021 and 10/30/2022. There are scattered areas of fibroglandular density. There is no suspicious abnormality in either breast. Impression: There is no mammographic evidence of malignancy. Annual screening mammography is recommended. OVERALL FINAL ASSESSMENT: BI-RADS CATEGORY 1: Negative. Self Screening Mammogram IMG MAMMO PROCEDURES Fi nal Result * Hepatitis panel, acute (11/04/2018 10:36 AM CDT) Hep A IgM Non-Reactive Non-Reactive [facility] Hep B core IgM Non-Reactive Non-Reactive [facility] Hep C Ab Non-Reactive Non-Reactive [facility] HepBsAg Nonreactive Nonreactive [facility] Blood specimen (specimen) 11/04/2018 10:36 AM CDT 11/04/2018 12:46 PM CDT Angélica Aviles NP LAB MICROBIOLOGY - GENERAL ORDER GÉNESIS Final Result [facility] [address] [place] [address] from Last 3 Months or Most Recently Relevant to Health Maintenance Insurance [facility] MEDICARE Advance Directives For more information, please contact: [phone] * Full Code (Latest Code Status on File) Date Activated Date Inactivated Comments 11/27/2018 4:29 PM 11/27/2018 8:29 PM Care Teams Closing Agent Relationship Specialty Start Date End Date Arthur Landon MD [address] [facility] [address] [place] [address] PCP - General Family Medicine 10/28/23
--- OUTSIDE RECORDS SUMMARY | 2024-10-20 13:37 | XMS_ITS | Clinical Summary ---
Author Organization [facility] Address [address] [place] [address] Care Team Providers Care Press Offbearer Name Role Phone Arthur Landon MD Primary Care Provider [phone] Source Comments [facility],non-owned Affiliates and Associated Physician Practices is amultiple site organization consisting of ambulatory clinics and hospital sitesin [place], [place], [place] and [place]. This disclosure is being madepursuant to the Care Everywhere program and may not contain all information available regarding this patient. Last updated 17.[facility] Allergies Active Allergy Reactions Criticality Noted Date [...] fluticasone propionate (FLONASE) 50 MCG/ACT nasal spray [place] 1 [place] into each nostril 2 times daily 1 [...] on file Legal Sex Female 7:48 AM BOTTOM LINER Gender Identity Not on file Sexual Orientation [...] 11:07 AM CDT Height 172.7 cm (5' 8) 10/25/2017 11:07 AM CDT Body Mass Index [...] season) 2023 DEPRESSION SCREENING 02/18/2024 INFLUENZA VACCINE (#1) 2024 6, 02/17/2007 HIB VACCINE Aged Out No longer [...] patient's age to complete this topic Insurance [facility] AETNA MEDICARE Care Teams Press Offbearer Relationship Specialty Start Date End Date Arthur Landon MD [address] [place] [address] PCP - General Family Medicine 02/24/16
== END 2024-10-20 12:03 | disposition home or self-care (01) ==
PROVIDERS: PCP Family Medicine; Visit Provider Neurological Surgery
DX: M47.812 Spondylosis without myelopathy or radiculopathy, cervical region (principal); Z98.1 Arthrodesis status
CPT/HCPCS: 72040

== ENCOUNTER 2024-11-18 13:58 | Outpatient (CLI) | payer OTHER, MEDICARE, SELFPAY ==
--- OUTSIDE RECORDS SUMMARY | 2020-01-19 01:00 | XMS_ITS | Encounter Summary ---
Author Organization [facility] Healthcare Address [address] [place] [address] Care Team Providers Care Director Safety Name Role Phone Arthur Landon MD Primary Care Provider Reason for Visit * Diagnostic Imaging (Routine) - Closed Specialty Diagnoses / Procedures Referred By Peace miranda Referred To Contact Procedures Breast Imaging Screening Outside Reference Transcribed Order, Provider Referral ID Status Reason Start Date Expiration Date Visits Re quested Visits Authorized [id number] Closed 01/08/2023 02/07/2024 1 1 Encounter Details Date Type Department Care Team (Late st Contact Info) Description 01/19/2020 Hospital Encounter [facility] [address] [place] [address] Social History Tobacco Use Types Packs/Day Years Used Date Smoking Tobacco: Never Smokeless Tobacco: Never Alcohol Use Standard Drinks/Week Comments No 0 (1 standard drink = 0.6 oz pur e alcohol) Comments No Sex and Gender Information Value Date Recorded Sex Assigned at Not on file Legal Sex Female 1:09 AM STABILIZING MACHINE OPERATOR Gender Identity Female 11/20/2023 11:28 AM CDT Sexual Orientation Straight 11/20/2023 11 :28 AM CDT documented as of this encounter Plan of Treatment Not on file documented as of this encounter Procedures Procedure Name Priority Date/Time Associated Diagnosis Comments BREAST IMAGING MG SCREENING OUTSIDE REFERENCE Routine 01/19/2020 12:00 AM STABILIZING MACHINE OPERATOR documented in this encounter Results * Breast Imaging Screening Outside Reference (01/19/2020 12:00 AM STABILIZING MACHINE OPERATOR) Impressions [facility] - 01/08/2023 11:25 AM STABILIZING MACHINE OPERATOR These images are for Reference purposes only and have not been reviewed by [facility] Radiology. There will be no report generated by a [facility] Radiologist. Narrative [facility] - 01/08/2023 11:25 AM STABILIZING MACHINE OPERATOR EXAMINATION: Images For Reference Purposes Only us Provider Transcribed Order IMG MAMMO PROCEDURES Final Result [facility] documented in this encounter Visit Diagnoses Not on filedocumented in this encounter Care Teams Director Safety Relationship Specialty Start Date End Date Arthur Landon MD [address] [facility] [address] [place] [address] PCP - General 05/17/16 12/15/22 documented as of this encounter
--- NOTE | ~2024-11-18 | XR_ITS ---
EXAMINATION: XR chest 2V, 11/18/2024 15:33 CDT HISTORY: T85.192A - Other mechanical complication of implanted tony... COMPARISON: No comparisons available. Technique: 2 views obtained. Findings: The lungs are clear, no effusion. No pneumothorax. Heart is normal size. Mediastinal and hilar contours are within normal limits. Bony thorax no acute abnormality. Spinal canal catheter noted Impression: No acute cardiopulmonary abnormality. Reviewed, dictated and finalized at location P. Impression: No acute cardiopulmonary abnormality.
--- OUTSIDE RECORDS SUMMARY | 2024-11-18 14:03 | XMS_ITS | Patient Health Record ---
Author Organization [facility] [employer] [facility] Address [address] [place] [address] Care Team Providers Care Craps Manager Name Role Phone Cody Rice Unavailable [phone] Allergies Allergen (clinical drug ingredient) Drug/Non Drug Allergy documented on EMR Reaction Allergy Type Onset Date Status Lortab Unknown Drug Allergy 05/22/2022 Active Reason For Referral No Information Medications Medication SIG (Take, Route, Frequency, Duration) Notes Start Date End Date Status prednisoLONE Acetate 1 % Suspension Ophthalmic 06/24/2023 Active Otezla 30 MG Tablet Oral 06/24/2023 Active ProAir HFA 108 (90 Base) MCG/ACT Aerosol Solution Inhalation 06/24/2023 Act mar Ozempic (0.25 or 0.5 MG/DOSE) 2 MG/3ML Solution Pen-injector Subcutaneous *Pick strength-form from [employer] for eRX* 06/24/2023 Active Clobetasol Propionate 0.05% Cream External 06/24/2023 Active DEXCOM G6 EACH MISCELLANEOUS *Reorder from [employer] for eRx and Interaction Alerts* 06/24/2023 Active Auvelity 45-105 MG Tablet Extended Release 1 TABLET Oral TWICE A DAY; Duration: 90 days Active MARIJUANA (CANNABIS) ORAL EDIBLE *Reorder from [employer] for eRx and Interaction Alerts* 06/24/2023 Active methylPREDNISolone 4 MG Tablet Therapy Pack Oral 06/24/2023 Active Baclofen 20 MG Tablet Oral 06/24/2023 Active Losartan Potassium 25 MG Tablet Oral 06/24/2023 Active Atorvastatin Calcium 10 MG Tablet Oral 06/24/2023 Active DULoxetine HCl 60 MG Capsule Delayed Release Particles Oral prescribed by neurolgy 06/24/2023 Active KESIMPTA PEN 20 MG/0.4 ML SUBCUTANEOUS PEN INJECTOR *Reorder from [facility] for eRx and Interaction Alerts* 06/24/2023 Active Meclizine HCl 12.5 MG Tablet Oral 06/24/2023 Active metFORMIN HCl ER 500 MG Tablet Extended Release 24 Hour Oral 06/24/2023 Active Teriflunomide 14 MG Tablet Oral; Duration: 90 Days Active Gabapentin 300 MG Capsule Oral 06/24/2023 Active Montelukast Sodium 10 MG Tablet Oral 06/24/2023 Active clonazePAM 0.5 MG Tablet Oral prescri bed by neurology 06/24/2023 Active Immunizations Vaccine Route Administration Date [...] History Observation Description Sex Assigned At Female Social History Additional Details Category Social Info Options Details Migrated Social History Migrated Social History Alcohol Intake: None 12/21/2019,Tobacco Years: Never smoker 12/21/2019 Problems Problem Type SNOMED Code ICD Code Onset Dates Problem Status W/U Status Risk Notes Problem Mild recurrent major depression (59614829) Major depressive disorder, recurrent, mild (F33.0) Active confirmed Problem Generalized anxiety disorder (94529303) Generalized anxiety disorder (F41.1) Active confirmed Problem Posttraumatic stress disorder (75910402) Post-traumatic stress disorder, chronic (F43.12) Active confirmed Problem Insomnia disorder related to another mental disorder (98674306) Insomnia due to other mental disorder (F51.05) Active confirmed Vital Signs Heart Rate 101 /min 08/31/2024 Height-cm 172.72 cm 08/31/2024 Blood pressure diastolic 70 mm Hg 08/31/2024 Weight-kg 84.37 kg 08/31/2024 Height 68.00 in 08/31/2024 Blood pressure systolic 124 mm Hg 08/31/2024 Weight 186 lbs 08/31/2024 BMI 28.28 kg/m2 08/31/2024 Encounters Encounter Location Date Provider Diagnosis [facility] [employer] [address] [address] 03/02/2024 Cody Rice Generalized anxiety disorder F41.1 ; Major depressive disorder, recurrent, mild F33.0 ; Insomnia due to other mental disorder F51.05 and Post-traumatic stress disorder, chronic F43.12 [facility] [employer] [address] [address] 05/25/2024 Cody Rice Major depressive disorder, recurrent, mild F33.0 ; Generalized anxiety disorder F41.1 ; Insomnia due to other mental disorder F51.05 ; Post-traumatic stress disorder, chronic F43.12 and Encounter for screening for cardiovascular disorders Z13.6 [facility] [employer] [address] [address] 08/31/2024 Cody Rice Major depressive disorder, recurrent, mild F33.0 ; Generalized anxiety disorder F41.1 ; Insomnia due to other mental disorder F51.05 and Post-traumatic stress disorder, chronic F43.12 [facility] [employer] [address] [address] 07/20/2024 Cody Rice Major depressive disorder, recurrent, mild F33.0 Assessments Encounter Date Diagnosis (ICD Code) Assessment Notes Treatment Notes Treatment Clinical Notes Section Notes 03/02/2024 Generalized anxiety disorder (ICD-10 - F41.1) on clonazepam by neurologist 05/25/2024 Major depressive disorder, recurrent, mild (ICD-10 - F33.0) cont Auvelity 45mg -105mg bid, on Duloxetine 60mg bid by neurolgist 07/20/2024 Major depressive disorder, recurrent, mild (ICD-10 - F33.0) 08/31/2024 Major depressive disorder, recurrent, mild (ICD-10 - F33.0) cont Auvelity 45mg -105mg bid, on Duloxetine 60mg bid by neurolgist 08/31/2024 Generalized anxiety disorder (ICD-10 - F41.1) on clonazepam by neurologist 05/25/2024 Insomnia due to other mental disorder (ICD-10 - F51.05) stable 05/25/2024 Generalized anxiety disorder (ICD-10 - F41.1) on clonazepam by neurologist 03/02/2024 Major depressive disorder, recurrent, mild (ICD-10 - F33.0) cont Auvelity 45mg -105mg bid, on Duloxetine 60mg bid by neurolgi 03/02/2024 Insomnia due to other mental disorder (ICD-10 - F51.05) 05/25/2024 Post-traumatic stress disorder, chronic (ICD-10 - F43.12) 08/31/2024 Insomnia due to other mental disorder (ICD-10 - F51.05) stable 05/25/2024 Encounter for screening for cardiovascular disorders (ICD-10 - Z13.6) 08/31/2024 Post-traumatic stress disorder, chronic (ICD-10 - F43.12) 03/02/2024 Post-traumatic stress disorder, chronic (ICD-10 - [...] three months or sooner if needed 05/25/2024 Kodak Hope, female patient with history of multiple [...] depression, which she attributes to difficulties finding dyya-[id number]-dnoi employment and cognitive challenges (memory and word-finding [...] efforts have been made to correct them. 08/31/2024 Kodak Hpoe, a patient with multiple sclerosis (MS), presents for follow-up of psychiatric care, reporting overall stable mood and anxiety with effective use of coping strategies. Mood Disorder Assessment: Patient reports stable mood over the past couple of months. She has been effectively using coping strategies learned from therapy, particularly the I-feel-like phrase to communicate emotions with family members. This technique has helped her manage feelings of being overwhelmed by family dependencies and her own physical limitations. Patient demonstrates insight into her condition and is actively engaged in self-care. Plan: - Continue duloxetine - Continue clonazepam - Encourage ongoing use of learned coping strategies and communication techniques - Follow up in 4 months Anxiety Assessment: Patient reports anxiety as fine, indicating good control. She utilizes breathing techniques and self-reflection when feeling flustered, demonstrating effective management of anxiety symptoms. The patient shows good insight into her anxiety triggers and employs appropriate coping mechanisms. Plan: - Continue current medication regimen - Reinforce use of breathing techniques and self-reflection for anxiety management Multiple Sclerosis Assessment: Patient reports side effects from new MS medication, including significant hair loss. Additionally, she mentions muscle cramping, which her pharmacist attributed to a potential interaction between her MS medication and atorvastatin. Patient has independently increased magnesium intake to address muscle cramping. Plan: - Advise patient to discuss medication side effects and potential drug interactions with her MS provider at next appointment (scheduled for late September or October) - Suggest patient inquire about alternatives to atorvastatin due to potential interaction with MS medication Insomnia Assessment: Patient denies significant sleep difficulties. She reports using newly adopted techniques effectively for sleep management. Plan: - Continue Ambien - Encourage continued use of non-pharmacologi jorge sleep techniques the note is transcribed using speech recognition software. It is a reflection of a visit with the patient. It might have some inaccuracy, including medication names and transcribing errors, though efforts have been made to correct them. Plan Of Treatment Next Appt Details Provider Name:Cody dos santos, 01/04/2025 01:30:00 PM, [address], [address], [place], [address], Insurance Providers Payer Name Payer Address Payer Phone Subscriber Number Group Number Insured Name Patient Relationship to Insured Coverage Start Date Coverage End Date [employer] Pos [address] [place] [address] [id number] [address]OPE Spouse - patient is the spouse of the insured Medicare- [place] Medicare [address] [place] [phone] [id number] LINA HOPE Self - patient is the [...] regular contact with various healthcare providers at [facility], including Sue Parry RN, Garret Elias MD, [...] Any surgical history 02/17/2018 Removal of gallbladder (57878) 3 Endometrial ablation (52768) 08/17/2006 Cataract surgery (70817) 02/16/2020
--- OUTSIDE RECORDS SUMMARY | 2024-11-18 14:03 | XMS_ITS | Encounter Summary ---
Author Organization [facility] Healthcare Address [address] [place] [address] Care Team Providers Care Commis Chef Name Role Phone Arthur Landon MD Primary Care Provider Reason for Referral * MRI/CAT/PET Scan (Routine) - Authorized Specialty Diagnoses / Procedures Referred By Peace t Referred To Contact Radiology Diagnoses Multiple sclerosis Procedures MRI Brain W WO Contrast Mitesh Talamantes PA [address] [place] [address] Phone: tel: fax: [place] [address] [place] [address] Referral ID Status Reason Start Date Expiration Date V isits Requested Visits Authorized [id number] Authorized 11/18/2024 05/17/2025 1 1 Encounter Details Date Type Department Care Team (Late st Contact Info) Description 11/15/2024 Orders Only [facility] [address] [facility] [address] [place] [address] Mitesh Talamantes PA [address] [place] [address] Multiple sclerosis (HCC) (Primary Dx) Social History Tobacco Use Types Packs/Day Years Used Date Smoking Tobacco: Never Smokeless Tobacco: Never Alcohol Use Standard Drinks/Week Comments No 0 (1 standard drink = 0.6 oz pur e alcohol) Comments No Sex and Gender Information Value Date Recorded Sex Assigned at Not on file 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 Gender Identity Female 11/20/2023 11:28 AM CDT Sexual Orientation Straight 11/20/2023 11 :28 AM CDT documented as of this encounter Plan of Treatment Scheduled Orders Name Type Priority Associated Diagnoses Order Schedule Urinalysis reflex to microscopic and culture Urine, clean voided Microbiology Routine Multiple sclerosis (HCC) Expected: 11/15/2024, Expires: 11/15/2025 MRI Brain W WO Contrast Imaging Schedule Routine, Read Routine (OP Routine) Multiple sclerosis ([facility]) Expected: 11/15/2024, Expires: 11/15/2025 CBC with auto differential Lab Routine Multiple sclerosis ([facility]) Expected: 11/15/2024, Expires: 11/15/2025 Comprehensive metabolic panel Lab Routine Multiple sclerosis ([facility]) Expected: 11/15/2024, Expires: 11/15/2025 documented as of this encounter Visit Diagnoses Diagnosis Multiple sclerosis- Primary documented in this encounter Care Teams Commis Chef Relationship Specialty Start Date End Date Arthur Landon MD [address] [facility] [address] [place] [address] PCP - General Family Medicine 10/28/23 documented as of this encounter
--- OUTSIDE RECORDS SUMMARY | 2024-11-18 14:03 | XMS_ITS | Encounter Summary ---
Author Organization [facility] Healthcare Address [address] [place] [address] Care Team Providers Care Treating Plant Supervisor Name Role Phone Arthur Landon MD Primary Care Provider Tyrell Modi Primary Care Provider [phone] Arthur Landon MD Primary Care Provider Encounter Details Date Type Department Care Team (Late st Contact Info) Description 08/24/2020 Telephone [facility] - Imaging [address] [place] [address] Transcribed Order, Provider Social History Tobacco Use Types Packs/Day Years Used Date Smoking Tobacco: Never Smokeless Tobacco: Never Alcohol Use Standard Drinks/Week Comments No 0 (1 standard drink = 0.6 oz pur e alcohol) Comments Unknown Sex and Gender Information Value Date Recorded Sex Assigned at Not on file 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 Gender Identity Female 11/20/2023 11:28 AM CDT Sexual Orientation Straight 11/20/2023 11 :28 AM CDT documented as of this encounter Plan of Treatment Not on file documented as of this encounter Visit Diagnoses Not on filedocumented in this encounter Care Teams Treating Plant Supervisor Relationship Specialty Start Date End Date Arthur Landon MD [address] [facility] [address] [place], [place] [id number] PCP - General 05/17/16 12/15/22 Tyrell Modi PA [address] [facility] [address] [place] [address] PCP - General Physician Gasoline Plant Operator 12/16/22 10/27/23 Arthur Landon MD [address] [facility] [address] [place] [address] PCP - General Family Medicine 10/28/23 documented as of this encounter
--- OUTSIDE RECORDS SUMMARY | 2024-11-18 14:03 | XMS_ITS | Clinical Summary ---
Author Organization [facility] [employer] Address [address] [place] [address] Care Team Providers Care Police Dispatcher Name Role Phone Arthur Landon MD Primary Care Provider [phone] Source Comments [facility] [employer],non-owned Affiliates and Associated Physician Practices is amultiple site organization consisting of ambulatory clinics and hospital sitesin [place], [place], [place]. This disclosure is being madepursuant to the Care Everywhere program and may not contain all information available regarding this patient. 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 Gender Identity Not on file Sexual Orientation [...] of 2) 2017 SCREENING FOR DIABETES 03/12/2017 DEPRESSION SCREENING 02/18/2024 COVID-19 VACCINE (1 - 2023-2 5 season) 2024 INFLUENZA VACCINE (#1) 2024 6, 02/17/2007 HIB [...] patient's age to complete this topic Insurance [facility] Address: [address] [place] [address] MEDICARE [facility] Address: [facility] [id number] [place] [address] MEDICARE Care Teams Police Dispatcher Relationship Specialty Start Date End Date Arthur Landon MD [address] [place] [address] PCP - General Family Medicine 02/24/16
--- OUTSIDE RECORDS SUMMARY | 2024-11-18 14:03 | XMS_ITS | Clinical Summary ---
Author Organization [facility] Address [address] [place] [address] Care Team Providers Care Spot Welder Body Assembly Name Role Phone Arthur Landon MD Primary [...] Active teriflunomide 14 mg tabletIndication s:Multiple sclerosis Take 1 tablet (14 mg total) by mouth daily 90 tablet [address] (CYMBALTA) 60 mg capsule TAKE 1 CAPSULE BY MOUTH TWICE A DAY 180 capsule 3 5 Active clonazePAM (KlonoPIN) 0.5 mg tabletIndication s:Multiple sclerosis TAKE 1 TABLET BY MOUTH EVERY MORNING [...] contraindicated. Assessment & Plan (04/24/2022 6:56 AM ODD SHOE EXAMINER): Currently on Otezla (apremilast). Additive risks in [...] hand numbness when waking and driving. Decreased medical assistant in both hands. EMG/NCS 04/26/20 formed at [facility]: Bilateral carpal tunnel syndrome, sensory more than motor. Bilateral wrist splints. Prefers to hold off on surgery. Assessment & Plan (04/24/2022 7:02 AM ODD SHOE EXAMINER): Bilateral hand numbness when waking and driving. Decreased medical assistant in both hands. EMG/NCS 04/26/20 formed at [facility]: Bilateral carpal tunnel syndrome, sensory more than motor. Bilateral wrist splints. Assessment & Plan (03/13/2022 12:19 PM ODD SHOE EXAMINER): Bilateral hand numbness when waking and driving. Decreased medical assistant in both hands. EMG/NCS 04/26/20 formed at [facility]: Bilateral carpal tunnel syndrome, sensory more than motor. Bilateral wrist splints. Assessment & Plan (09/13/2021 7:40 AM CDT): Bilateral hand numbness when waking and driving. Decreased medical assistant in both hands. EMG/NCS 04/26/20 formed at [facility]: Bilateral carpal tunnel syndrome, sensory more than motor. Bilateral wrist splints. Assessment & Plan (03/15/2021 1:22 PM ODD SHOE EXAMINER): Bilateral hand numbness when waking and driving. Decreased medical assistant in both hands. EMG/NCS 04/26/20 formed at [facility]: Bilateral carpal tunnel syndrome, sensory more than motor. Bilateral wrist splints. Assessment & Plan (06/01/2020 8:33 AM CDT): Bilateral hand numbness when waking and driving. Decreased medical assistant in both hands. EMG/NCS at [facility] was apparently consistent with bilateral carpal tunnel syndrome. Report requested. Wrist splints ordered. Cervical spinal stenosis 05/18/2019 Assessment & Plan (10/15/2023 6:36 AM CDT): Status post anterior cervical diskectomy and fusion with Dr. Dheeraj Alejandro August 2018 Assessment & Plan (04/24/2022 7:03 AM ODD SHOE EXAMINER): Status post anterior cervical diskectomy and fusion with Dr. Dheeraj Alejandro August 2018 Assessment & Plan (03/13/2022 12:27 PM ODD SHOE EXAMINER): Status post anterior cervical diskectomy and fusion with Dr. Dheeraj Alejandro August 2018 Assessment & Plan (09/13/2021 7:40 AM CDT): Status post anterior cervical diskectomy and fusion with Dr. Dheeraj Alejandro August 2018 Assessment & Plan (03/15/2021 12:55 PM ODD SHOE EXAMINER): Status post anterior cervical diskectomy and fusion [...] Hylton. Assessment & Plan (04/24/2022 7:03 AM ODD SHOE EXAMINER): Severe L4-5 lumbar stenosis and daniel severe L5-S1 NF stenosis. Cymbalta, Neurontin F/u pain management Had neurostimulator placed (MRI compatible) Seen Dr. Hylton. Assessment & Plan (03/13/2022 12:27 PM ODD SHOE EXAMINER): Severe L4-5 lumbar stenosis and daniel severe L5-S1 NF stenosis. Cymbalta, Neurontin F/u pain management Had neurostimulator placed (MRI compatible) Seen Dr. Hylton. Assessment & Plan (09/13/2021 7:40 AM CDT): Severe L4-5 lumbar stenosis and daniel severe L5-S1 NF stenosis. Cymbalta, Neurontin F/u pain management Had neurostimulator placed (MRI compatible) Seen Dr. Hylton. Assessment & Plan (03/15/2021 12:54 PM ODD SHOE EXAMINER): Severe L4-5 lumbar stenosis and daniel severe [...] past Assessment & Plan (04/24/2022 7:03 AM ODD SHOE EXAMINER): Improved post-menopause Excedrin as needed On Topamax in past Assessment & Plan (03/13/2022 12:27 PM ODD SHOE EXAMINER): Improved post-menopause Excedrin as needed On Topamax in past Assessment & Plan (09/13/2021 7:41 AM CDT): Improved post-menopause Excedrin as needed On Topamax in past Assessment & Plan (03/15/2021 12:54 PM ODD SHOE EXAMINER): Improved post-menopause Excedrin as needed On Topamax [...] follow-up Assessment & Plan (04/24/2022 7:04 AM ODD SHOE EXAMINER): Cymbalta 60 mg BID Bupropion XL 150 mg daily Psychiatry follow-up Assessment & Plan (03/15/2022 7:06 AM ODD SHOE EXAMINER): Cymbalta 60 mg BID Bupropion XL 150 mg daily Psychiatry follow-up Assessment & Plan (09/13/2021 7:41 AM CDT): Cymbalta 60 mg BID Bupropion XL 150 mg daily Increased stress with marital issues and daughter with anxiety/depression. Assessment & Plan (03/15/2021 1:21 PM ODD SHOE EXAMINER): Cymbalta 60 mg BID Bupropion XL 300 [...] stimulator. Assessment & Plan (04/24/2022 7:02 AM ODD SHOE EXAMINER): Kesimpta discontinued on April 08, 2022 due [...] October 2022. Future MRI imaging at [facility] (has MRI-compatible spinal cord stimulator). Assessment & Plan (03/15/2022 7:05 AM ODD SHOE EXAMINER): Kesimpta 20 mg subcutaneous monthly. The benefits [...] protected. Yazvifay advised if she develops COVID-19. 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 Neurontin 600 mg twice a day Baclofen 20 mg nightly Exercise encouraged Walker or electric wheelchair for distance Vit D supplement: 50,000 IU D2 once monthly + daily 2000 IU D3 supplement. MRI brain and cervical spine October 2022. Future MRI imaging at [facility] (has MRI-compatible spinal cord stimulator). Assessment [...] October 2022. Future MRI imaging at [facility] (has MRI-compatible spinal cord stimulator). Assessment & Plan (03/15/2021 1:19 PM ODD SHOE EXAMINER): Kesimpta 20 mg subcutaneous monthly. The benefits [...] D3 supplement. Future MRI imaging at [facility] (has MRI-compatible spinal cord stimulator) Assessment [...] and cervical spine July 2020 at [facility] (has MRI- compatible spinal cord stimulator) [...] is model number 3662 and compatible per consumer affairs manager manual for an MRI with 1.5T She [...] you have not heard about your MRI [phone]. 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 03/11/2016 12/04/2017 Lumbago 04/19/2011 12/04/2017 Encounters Date Type Department Care Team Description 11/15/2024 Orders Only [place] [facility] in [facility] [address] [address] Mitesh Talamantes PA Multiple sclerosis (HCC) (Primary Dx) from Last 3 Months Immunizations Immunization Administration [...] Medical History Date Comments Hx Other Medical 1990 optic neuritis; improved 11/24/18 Multiple sclerosis 2009 Multiple scle rosis Asthma Asthma Hx Other Medical gallstones Hx Other Medical hiatal hernia; surgery Depression Depression Diabetes mellitus Diabetes Hyperlipidemia Type 2 diabetes mellitus Family [...] on file Legal Sex Female 1:09 AM ODD SHOE EXAMINER Gender Identity Female 11/20/2023 11:28 AM CDT Sexual Orientation Straight 11/20/2023 11 :28 AM CDT Obstetrics History Last Filed Vital Signs Vital Sign Reading Time Taken Comments Blood Pressure 102/56 05/26/2024 11:19 AM CDT Pulse 109 05/26/2024 11:19 AM CDT Temperature 36.3 C (97.3 F) 05/26/2024 11:19 AM CDT Respiratory Rate 18 12/21/2018 1:39 PM ODD SHOE EXAMINER Oxygen Saturation 97% 05/26/2024 11:19 AM CDT [...] vaccine <65 (2 of 2 - PCV) 02/06/2024 02/05/2023, 12/09/2018, 11/17/2006, Additional history exists Covid-19 Vaccine (5 - 2024-2 6 season) 2024 12/17/2021, 01/24/2021, 06/12/2020, Additional history exists Influenza Vaccine (#1) 2024 3, 12/17/2021, 12/07/2020, Additional history exists Breast Cancer Screening-Mammogram 01/19/2025 024 DTaP/Tdap/Td Vaccine (3 - Td or Tdap) 04/27/2029 04/28/2019, 12/11/2011 Hepatitis C Screening Completed 11/04/2018 Zoster Vaccine Completed 11/16/2018, 01/12/2018 Medical Devices Implanted Type Area Utility Aide Device Identifier Shelf Expiration Date Model / Serial / Lot Stimulator- [id number] Implanted:Qty: 1 on 08/08/2023 by Kalyani Gonsalez MD Stimulator N/A: Spine Thoracic Anders ETERNA [id number] / [id number] / Description:Eterna IPC 17843 with two 3186 leads 1.5T only this unit replaced the older unit all older components removed per pt Unit must be placed in mri mode Kit Neurostimulator Octrode L60 Cm Percutaneous 8 Electrode Lead - [id number] Implanted:Qty: 1 on 06/27/2017 by Kalyani Gonsalez MD at [facility] N/A: Spine Lumbar [employer] 12/27/2018 [id number] / / [id number] Kit Neurostimulator Octrode L60 Cm Percutaneous 8 Electrode Lead - [id number] Implanted:Qty: 1 on 06/27/2017 by Kalyani Gonsalez MD at [facility] N/A: Spine Lumbar [employer] 04/21/2019 [id number] / / [id number] Callao Lead Junior-Lock - [id number] Implanted:Qty: 1 on 06/27/2017 by Kalyani Gonsalez MD at [facility] N/A: Spine Lumbar [employer] 03/26/2019 1192 / / [id number] Callao Lead Junior-Lock - [id number] Implanted:Qty: 1 on 06/27/2017 by Kalyani Gonsalez MD at [facility] N/A: Spine Lumbar [employer] 07/31/2018 1192 / / [id number] [employer] 3660 Contrlsys Proclaim Elite 4.95cmx5.55cm 5 Implantable Pulse Tonic - [id number] Implanted:Qty: 1 on 11/27/2018 by Kalyani Gonsalez MD at [facility] N/A: Spine Lumbar [employer] 07/02/2020 3660 CONTRLSYS / / [id number] Explanted Type Area Utility Aide Device Identifier Shelf Expiration Date Model / Serial / Lot Generator Neurostimulator Proclaim Elite Thk.53 In L2.63 In X H1.98 In 2.1 Oz 7 Ipg Implantable Recharge Free Chronic Pain - [id number] Implanted:Qty: 1 on 06/27/2017 by Kalyani Gonsalez MD at [facility] Explanted:Qty: 1 on 11/27/2018 by Kalyani Gonsalez MD at [facility] N/A: Spine Lumbar [employer] 05/07/2019 3662 / / [id number] Description:EXPLANT INTACT A ND GIVEN TO [facility] TO TAKE FOR INTERROGATION Procedures Procedure Name Priority Date/Time Associated Diagnosis Comments HEPATIC FUNCTION PANEL Routine 10/20/2024 12:39 PM CDT Multiple sclerosis (HCC) Medication management HEPATIC FUNCTION PANEL Routine 09/16/2024 1:37 PM CDT Multiple sclerosis (HCC) Medication management SCREENING MAMMOGRAM BILATERAL W DICK Schedule Routine, Read Routine (OP Routine) 01/20/2024 2:25 PM ODD SHOE EXAMINER Screening mammogram, encounter for HEPATITIS PANEL, ACUTE Routine 11/04/2018 10:36 AM CDT Multiple sclerosis (HCC) Encounter for other specified special examinations Other fatigue from Last 3 Months or Most Recently Relevant to Health Maintenance Results * Hepatic function panel (10/20/2024 12:39 PM CDT) Protein, Total 6.5 6.4 - 8.4 g/dL [facility] [...] mg/dL (calc) [facility] Alk phos 86 37 - 153 U/L [facility] AST 14 10 - 35 U/L [facility] ALT (SGPT) 14 6 - 29 U/L [facility] Blood 10/20/2024 12:3 9 PM CDT 10/20/2024 12:40 PM CDT [facility] - 10/21/2024 6:05 AM CDT FASTING:NO FASTING: NO us aGrret Elias MD LAB BLOOD ORDERABLES Final Re sult [facility] [address] [place] [address] * Hepatic function panel (09/16/2024 1:37 PM [...] LAB BLOOD ORDERABLES Final Re sult [facility] [address] [place] [address] * Screening Mammogram Bilateral W Dick (01/20/2024 2:25 PM ODD SHOE EXAMINER) Anatomical Region Laterality Modality Breast Bilateral Mammography Narrative 01/21/2024 4:13 PM ODD SHOE EXAMINER Mammogram Technique: Bilateral Digital Breast Tomosynthesis, Bilateral C-view 2D Screening mammogram. Views obtained: bilateral craniocaudal and bilateral mediolateral oblique. Computer Aided Detection was performed. Mammogram Findings: The present examination has been compared to prior imaging studies performed at [facility] on 01/13/2023, and at [facility] on 02/28/2021 and 10/30/2022. There [...] to prior imaging studies performed at [facility] on 01/13/2023, and at [facility] on 02/28/2021 and 10/30/2022. There [...] AM CDT) Hep A IgM Non-Reactive Non-Reactive [facility] Hep B core IgM Non-Reactive Non-Reactive [facility] Hep C Ab Non-Reactive Non-Reactive [facility] HepBsAg Nonreactive Nonreactive [facility] Blood specimen (specimen) 11/04/2018 10:36 AM CDT 11/04/2018 12:46 PM CDT Angélica Aviles NP LAB MICROBIOLOGY - GENERAL ORDER GÉNESIS Final Result [facility] [address] [place] [address] from Last 3 Months or Most Recently Relevant to Health Maintenance [place] [id number] MEDICARE Advance Directives For more information, please contact: [phone] * Full Code (Latest Code Status on File) Date Activated Date Inactivated Comments 11/27/2018 4:29 PM 11/27/2018 8:29 PM Care Teams Spot Welder Body Assembly Relationship Specialty Start Date End Date Arthur Landon MD [address] [facility] [[email or web address] [address] [place] [address] PCP - General Family Medicine 10/28/23
--- OUTSIDE RECORDS SUMMARY | 2024-11-18 14:03 | XMS_ITS | Clinical Summary ---
Author Organization [facility] Address [address] [place] [address] Phone Care Team Providers Care Subway Train Driver Name Role Phone Arthur Landon MD Primary Care Provider Active Problems Problem Noted Date Diagnosed Date Chronic pain syndrome 03/28/2017 Somatic symptom disorder, pe rsistent, severe, with predominant pain 03/28/2017 Social History Tobacco Use Types Packs/Day Years Used Date Smoking Tobacco: Never Assessed Comments Unknown Sex and Gender Information Value Date Recorded Sex Assigned at Not on file Legal Sex Female 10:59 AM HOSPITAL SUPERVISOR Gender Identity Not on file Sexual [...] complete this topic Insurance MEDICARE Care Teams Subway Train Driver Relationship Specialty Start Date End Date Arthur Landon MD [address] [place] [address] PCP - General Family Medicine 03/20/17
[2024-11-18 15:42] LABS: Hematocrit 41.9 % (37.0-47.0); Hemoglobin 12.9 g/dL (12.0-15.0); Mean Corpuscular HGB Conc 30.8 g/dl (32-36); Mean Corpuscular Hemoglobin 27.6 pg (26-34); Mean Corpuscular Volume 89.7 fl (80-100); Platelet Count Result 255 k/mm3 (150-375); Red Blood Count 4.67 M/mm3 (4.2-5.4); White Blood Count 8.1 K/mm3 (4.5-10.0)
[2024-11-18 15:48] LABS: Add Urine Microscopic? YES; Appearance Urine Cloudy (Clear); Glucose Urine UA Negative (Negative); Leukocyte Esterase Ur 3+ LEU/UL (Negative); Nitrate Urine Negative (Negative); Non Pathogenic Casts 0-2; Specific Grav Ur 1.008 (1.001-1.035)
[2024-11-18 15:54] LABS: INR 0.9; Prothrombin Time 12.6 Seconds (11.1-14.7)
[2024-11-18 15:55] LABS: Partial Thromboplastin Time 24.5 Seconds (22.3-36.8)
== END 2024-11-18 13:59 | disposition home or self-care (01) ==
LOC: ANHSURGERY 14:00
PROVIDERS: PCP Family Medicine; Visit Provider Neurological Surgery
DX: T85.192A Other mechanical complication of implanted electronic neurostimulator of spinal cord electrode (lead), initial encounter (principal)
CPT/HCPCS: 36415; 71046; 81001; 85027; 85610; 85730; 87086; 87186

== ENCOUNTER 2024-12-01 00:52 | Day surgery (SDC) | payer OTHER, MEDICARE, SELFPAY ==
--- OUTSIDE RECORDS SUMMARY | 2020-01-19 01:00 | XMS_ITS | Encounter Summary ---
Author Organization [facility] Healthcare Address [address] [place] [address] Care Team Providers Care Straight Knife Cutter Machine Name Role Phone Arthur Landon MD Primary Care Provider Reason for Visit * Diagnostic Imaging (Routine) - Closed Specialty Diagnoses / Procedures Referred By Peace miranda Referred To Contact Procedures Breast Imaging Screening Outside Reference Transcribed Order, Provider Referral ID Status Reason Start Date Expiration Date Visits Re quested Visits Authorized [id number] Closed 01/08/2023 02/07/2024 1 1 Encounter Details Date Type Department Care Team (Late st Contact Info) Description 01/19/2020 Hospital Encounter [facility] [address] [place] [address] Social History Tobacco Use Types Packs/Day Years Used Date Smoking Tobacco: Never Smokeless Tobacco: Never Alcohol Use Standard Drinks/Week Comments No 0 (1 standard drink = 0.6 oz pur e alcohol) Comments No Sex and Gender Information Value Date Recorded Sex Assigned at Not on file Legal Sex Female 1:09 AM RESEARCH/PROGRAM DIRECTOR Gender Identity Female 11/20/2023 11:28 AM CDT Sexual Orientation Straight 11/20/2023 11 :28 AM CDT documented as of this encounter Plan of Treatment Not on file documented as of this encounter Procedures Procedure Name Priority Date/Time Associated Diagnosis Comments BREAST IMAGING MG SCREENING OUTSIDE REFERENCE Routine 01/19/2020 12:00 AM RESEARCH/PROGRAM DIRECTOR documented in this encounter Results * Breast Imaging Screening Outside Reference (01/19/2020 12:00 AM RESEARCH/PROGRAM DIRECTOR) Impressions [facility] - 01/08/2023 11:25 AM RESEARCH/PROGRAM DIRECTOR These images are for Reference purposes only and have not been reviewed by [facility] Radiology. There will be no report generated by a [facility] Radiologist. Narrative [facility] - 01/08/2023 11:25 AM RESEARCH/PROGRAM DIRECTOR EXAMINATION: Images For Reference Purposes Only us Provider Transcribed Order IMG MAMMO PROCEDURES Final Result [facility] documented in this encounter Visit Diagnoses Not on filedocumented in this encounter Care Teams Straight Knife Cutter Machine Relationship Specialty Start Date End Date Arthur Landon MD [address] [facility] [address] [place] [address] PCP - General 05/17/16 12/15/22 documented as of this encounter
[2024-11-18 14:33] VITALS: BP 108/64; PULSE 102; RESP 16; TEMP 36.6; O2SAT 97; BMI 28.2
--- NOTE | 2024-11-18 14:51 | PC.NURSE ---
[facility] has started construction of its new state of the art ER which will open Spring 2026. With this, we anticipate parking may be a challenge for some our surgical patients and families. Parking spaces are limited but are available for all Surgical, obstetrics, and ER patients sharing this lot. If you arrive and find you are having a hard time finding a parking space, please note that we understand the challenges, please drive around the hospital and park near Hospital Entrance 1. When you enter this entrance, you can ask a volunteer to direct or take you back to the surgical waiting area to check in. We appreciate everyone?s understanding of these expected challenges while we build for your future. Report to the Outpatient Waiting Room, entrance under the green pavilion located off [address], at time __8:30AM___ on date ___12/01/24__. Planned Procedure Time: __10:30AM____.? Time changes happen often and if your time is changed the preop area will call you the afternoon before. - You and your visitor will be asked to self-screen and do not enter if you have any COVID symptoms. Please call surgeon if you need to reschedule. - A mask is optional within the hospital at this time. Patients may have clear liquids (water, carbonated beverages, clear teas, apple juice) until 3 hours prior to surgery (7:30AM) with a maximum of 20 ounces. - No food from midnight until time of surgery and no smoking, or chewing tobacco (or any form of nicotine). No chewing gum, candy or mints. Take only the following medications with a SIP of water on the morning of surgery: ___AUVELITY, CLONAZEPAM, DULOXETINE, GABAPENTIN. MAY TAKE/USE ALBUTEROL INHALER, MECLIZINE, PREDNISOLONE EYE DROPS NEEDED. DO NOT STOP ANY OF YOUR OTHER PRESCRIPTION MEDICATIONS PRIOR TO SURGERY EXCEPT THE FOLLOWING Hold all vitamins and supplements for 3 days per anesthesiologist. LAST DOSE 11/27/24 Medications to discontinue per physician ____HOLD IBUPROFEN 7 DAYS PRE-OP PER DR LOVE Date to take last dose 11/23/24 Please no make-up, nail st luc[place], hairspray, perfume, deodorant, or body powder the day of surgery.? No jewelry (including any body piercings) or valuables the day of surgery, leave them at home.? Please take a shower or bath the night before, or the morning of, surgery with an antibacterial soap.? Wear comfortable, loose fitting clothing.? - Jewelry must be removed prior to entering the operating room.? Rings and piercings that are not removed may be cut off. - The hospital will not accept responsibility for valuables.? - Please leave all valuables, including medications, at home the day of surgery. If you are going home after surgery, a licensed ambulance driver must drive you home.? - NO public transportation without another adult if you receive anesthesia. - We recommend that an adult stay with you for 24 hours following discharge. - We also recommend that you do not drive, make important decision, drink alcoholic beverages, or take any drugs that were not prescribed by your health care provider for at least 24 hours after your discharge time. Follow any additional instructions given to you from your surgeon. Telephone instructions given to ___PATIENT and asked if any additional questions and then verbalized understanding. Patient advised to call surgeon office or pre surgery nurse liaison [phone] if any additional questions.
--- OUTSIDE RECORDS SUMMARY | 2024-11-30 11:15 | XMS_ITS | Encounter Summary ---
Author Organization [facility] Address [address] [place] [address] Care Team Providers Care Senior Construction Project Manager Name Role Phone Arthur Landon MD Primary Care Provider Encounter Details Date Type Department Care Team (Late st Contact Info) Description 11/30/2024 11:15 AM CDT Office Visit [facility] [address] [facility] [address], [place] [phone] Garret Elias MD [address] [place] [address] [address] [address] Relapsing-remitting multiple sclerosis (Primary Dx) Social History Tobacco Use Types Packs/Day Years Used Date Smoking Tobacco: Never Smokeless Tobacco: Never Alcohol Use Standard Drinks/Week Comments No 0 (1 standard drink = 0.6 oz pur e alcohol) Comments No Sex and Gender Information Value Date Recorded Sex Assigned at Not on file Legal Sex Female 1:09 AM DRAWER UPFITTER Gender Identity Female 11/20/2023 11:28 AM CDT Sexual Orientation Straight 11/20/2023 11 :28 AM CDT documented as of this encounter Last Filed Vital Signs Vital Sign Reading Time Taken Comments Blood Pressure 110/60 11/30/2024 11:04 AM CDT Pulse 98 11/30/2024 11:04 AM CDT Temperature - - Respiratory Rate - - Oxygen Saturation 97% 11/30/2024 11:04 AM CDT Inhaled Oxygen Concentration - - Weight 83.6 kg (184 lb 6.4 oz) 11/30/2024 11:04 AM CDT Height 172.7 cm (5' 8) 11/30/2024 11:04 AM CDT Body Mass Index 28.04 11/30/2024 11:04 AM CDT documented in this encounter Plan of Treatment Not on file documented as of this encounter Results * (ABNORMAL) CBC with auto differential (11/30/2024 12:04 PM CDT) WBC 7.04 3.80 - 9.90 K/cumm Hgb 13.0 11.9 - 15.5 g/dL [facility] Hct 41.6 35.6 - 45.5 % [facility] Plt 276 150 - 400 K/cumm [facility] MPV 9.8 9.1 - 12.3 fL [facility] RBC 4.57 3.90 - 5.20 M/cumm [facility] MCV 91.0 81.3 - 96.4 fL [facility] MCH 28.4 27.1 - 33.3 pg [facility] MCHC 31.3(L) 32.3 - 35.7 g/dL [facility] RDW CV 13.8 11.1 - 14.9 % [facility] RDW SD 44.9 35.7 - 48.1 fL [facility] NRBC abs 0.00 0.00 - 0.01 K/cumm [facility] Blood 11/30/2024 12:0 4 PM CDT 11/30/2024 3:54 PM CDT us Garret Elias MD LAB BLOOD ORDERABLES Final Re sult [facility] [address] [place] [address] documented in this encounter Visit Diagnoses Diagnosis Relapsing-remitting multiple sclerosis- Primary documented in this encounter Historical Medications * This list may reflect changes made after this encounter. budesonide-formot Barb (SYMBICORT) 160-4.5 mcg/actuation inhaler Inhale 2 puffs 2 (two) times a day 02/28/2021 added in this encounter Care Teams Senior Construction Project Manager Relationship Specialty Start Date End Date Arthur Landon MD [address] [place] [address] PCP - General Family Medicine 10/28/23 documented as of this encounter
--- OUTSIDE RECORDS SUMMARY | 2024-11-30 11:50 | XMS_ITS | Encounter Summary ---
Author Organization [facility] Healthcare Address [address] [place] [address] Care Team Providers Care Field Cashier Name Role Phone Arthur Landon MD Primary Care Provider Encounter Details Date Type Department Care Team (Late st Contact Info) Description 11/30/2024 11:50 AM CDT Lab [address] [phone] Relapsing-remitting multiple sclerosis; Multiple sclerosis Social History Tobacco Use Types Packs/Day Years Used Date Smoking Tobacco: Never Smokeless Tobacco: Never Alcohol Use Standard Drinks/Week Comments No 0 (1 standard drink = 0.6 oz pur e alcohol) Comments No Sex and Gender Information Value Date Recorded Sex Assigned at Not on file Legal Sex Female 1:09 AM MARKETING SERVICES REP Gender Identity Female 11/20/2023 11:28 AM CDT Sexual Orientation Straight 11/20/2023 11 :28 AM CDT documented as of this encounter Plan of Treatment Pending Results Name Type Priority Associated Diagnoses Date /Time Urine culture Urine, clean voided Microbiology Routine 11/30/2024 12:04 PM CDT documented as of this encounter Procedures Procedure Name Priority Date/Time Associated Diagnosis Comments EGFR Routine 11/30/2024 12:04 PM CDT Multiple sclerosis DIFFERENTIAL AUTO Routine 11/30/2024 12: 04 PM CDT Relapsing-remittin g multiple sclerosis URINALYSIS AND REFLEX TO MICROSCOPIC AND CULTURE Routine 11/30/2024 12:04 PM CDT Multiple sclerosis CBC WITH AUTO DIFFERENTIAL Routine 11/30/2024 12:04 PM CDT Relapsing-remittin g multiple sclerosis URINALYSIS, MICROSCOPIC ONLY Routine 11/30/2024 12:04 PM CDT Multiple sclerosis BILIRUBIN, DIRECT Routine 11/30/2024 12: 04 PM CDT Multiple sclerosis COMPREHENSIVE METABOLIC PANEL Routine 11/30/2024 12:04 PM CDT Multiple sclerosis URINE CULTURE Routine 11/30/2024 12:04 PM CDT documented in this encounter Results * eGFR (11/30/2024 12:04 PM CDT) eGFR 87 >=60 mL/min/1. 73 m2 Comment: Interpretive Data Reference Interval Normal >/= 90 mL/min/1.73m2 Mildly decreased* 60 - 89 mL/min/1.73m2 Mildly to moderately decreased 45 - 59 mL/min/1.73m2 Moderately to severely decreased 30 - 44 mL/min/1.73m2 Severely decreased 15 - 29 mL/min/1.73m2 Kidney Failure < 15 mL/min/1.73m2 *Relative to young adult level Estimated glomerular filtration rate is determined by the 2020 CKD-EPI equation recommended by the National Kidney Foundation (A Unifying Approach to GFR Estimation: Recommendations of the NKF-ASK Task Force on Reassessing the Inclusion of Race in Diagnosing Kidney Disease, JASN 2020). The CKD-EPI equation should not be used for patients with unstable renal function and has not been validated in children and those over 70. Current interpretive data was last reviewed 2020. Blood 11/30/2024 12:0 4 PM CDT 11/30/2024 3:53 PM CDT us Mitesh MELENDEZ LAB BLOOD ORDERABLES Final Resu lt [facility] [address] Department [place] [address] * (ABNORMAL) Urinalysis, microscopic only (11/30/2024 12:04 PM CDT) WBC, ur 11-20(A) 0 - 5 /HPF RBC, ur 3-5(A) 0 - 2 /HPF [facility] Epithelial cells, squamous, ur 1-5 0 - 5 /HPF [facility] Mucous, ur Present(A) [facility] Culture Reflex Comment Reflex to urine culture will be performed. [facility] Urine, clean voided 11/30/2024 12:04 PM CDT 11/30/2024 3:54 PM CDT Mitesh MELENDEZ LAB URINE ORDERABLES Final Resu lt [facility] [address] [place] [address] * Differential, auto (11/30/2024 12:04 PM CDT) Neutrophil abs 5.04 1.50 - 6.50 K/cumm Imm gran abs 0.02 0.00 - 0.10 K/cumm [facility] Lymphocyte abs 1.17 0.80 - 3.30 K/cumm [facility] Monocyte abs 0.65 0.20 - 0.80 K/cumm [facility] Eosinophil abs 0.10 0.00 - 0.50 K/cumm [facility] Basophil abs 0.06 0.00 - 0.10 K/cumm [facility] Neutrophil pct 71.6 % [facility] Comment: Interpretive Data Percent cell count reference ranges are not reported, since discordance with absolute values may lead to misinterpretation of CBC data. Current Interpretive Data was last revised on 2017. Imm gran pct 0.3 % [facility] Comment: Interpretive Data Percent cell count reference ranges are not reported, since discordance with absolute values may lead to misinterpretation of CBC data. Current Interpretive Data was last revised on 2017. Lymphocyte pct 16.6 % [facility] Comment: Interpretive Data Percent cell count reference ranges are not reported, since discordance with absolute values may lead to misinterpretation of CBC data. Current Interpretive Data was last revised on 2017. Monocyte pct 9.2 % [facility] Comment: Interpretive Data Percent cell count reference ranges are not reported, since discordance with absolute values may lead to misinterpretation of CBC data. Current Interpretive Data was last revised on 2017. Eosinophil pct 1.4 % [facility] Comment: Interpretive Data Percent cell count reference ranges are not reported, since discordance with absolute values may lead to misinterpretation of CBC data. Current Interpretive Data was last revised on 2017. Basophil pct 0.9 % [facility] Comment: Interpretive Data Percent cell count reference ranges are not reported, since discordance with absolute values may lead to misinterpretation of CBC data. Current Interpretive Data was last revised on 2017. Blood 11/30/2024 12:0 4 PM CDT 11/30/2024 3:54 PM CDT Garret Elias MD LAB BLOOD ORDERABLES Final Re sult Performing Organization Address City/[facility]/ZIP Co de Phone Number [facility] [address] [place] [address] * Bilirubin, direct (11/30/2024 12:04 PM CDT) Bilirubin, direct <0.2 0.1 - 0.3 mg/dL Blood 11/30/2024 12:0 4 PM CDT 11/30/2024 3:53 PM CDT Mitesh MELENDZE LAB BLOOD ORDERABLES Final Resu lt Performing Organization Address City/[facility] Co de Phone Number [facility] [address] Department of [employer] [place], [place] [id number] * (ABNORMAL) Urinalysis reflex to microscopic and culture Urine, clean voided (11/30/2024 12:04 PM CDT) Color, ur Yellow Yellow Clarity, ur Clear Clear [facility] Specific gravity, ur 1.016 1.003 - 1.030 [facility] pH, urine 7.0 [facility] Comment: Interpretive Data U rine pH is affected by diet, medications, systemic acid-base disturbances, and renal tubular function. pH may affect urinary stone formation. For example, urine pH below 6.0 may help reduce the tendency for calcium phosphate stones and pH greater than 6.0 may reduce the tendency for uric acid stone formation. Source: [facility] Current Interpretive Data was last revised on 2017 Protein, ur ql Trace Negative [facility] Glucose, ur ql Negative Negative [facility] Ketones, ur Negative Negative [facility] Bilirubin, ur Negative Negative [facility] Blood, ur Negative Negative [facility] Urobilinogen, ur <2.0 <2.0 mg/dL [facility] Nitrite, ur Negative Negative [facility] Leukocyte esterase, ur 2+(A) Negative [facility] UA reflex comment Reflex to microscopic UA will be performed. [facility] Urine, clean voided 11/30/2024 12:04 PM CDT 11/30/2024 12:04 PM CDT Mitesh MELENDEZ LAB MICROBIOLOGY - GENERAL BEBE RAMIREZ Final Result [facility] [address] Department [place] [address] * Comprehensive metabolic panel (11/30/2024 12:04 PM CDT) Pathologist [facility] Sodium 142 135 - 145 mmol/L Potassium, pl 4.4 3.3 - 4.9 mmol/L [facility] Chloride 106 97 - 110 mmol/L [facility] CO2 25 22 - 32 mmol/L [facility] Anion gap 11 2 - 15 mmol/L [facility] BUN 10 6 - 25 mg/dL [facility] Creatinine 0.79 0.60 - 1.10 mg/dL [facility] Glucose 104 70 - 199 mg/dL [facility] Comment: Interpretive Data Fasting glucose >/= 126 mg/dl is diagnostic for diabetes. Fasting is defined as no caloric intake for at least 8 hours. Fasting glucose between 100 mg/dl to 125 mg/dl is diagnostic of prediabetes. In a patient with classic symptoms of hyperglycemia or hyperglycemic crisis, a random glucose >/= 200 mg/dl is diagnostic for diabetes. In the absence of unequivocal hyperglycemia, results should be confirmed by repeat testing. The classification and Diagnosis of Diabetes Diabetes Care 2021; 46: S19-S40. Current interpretive data was last revised 2022. Calcium 9.5 8.5 - 10.3 mg/dL [facility] Bilirubin, total 0.3 0.1 - 1.2 mg/dL [facility] Protein, pl 6.7 6.5 - 8.5 g/dL [facility] Albumin 4.3 3.5 - 5.0 g/dL [facility] Alk phos 99 40 - 130 Units/L [facility] ALT 17 7 - 45 Units/L [facility] AST 15 10 - 45 Units/L [facility] Blood 11/30/2024 12:0 4 PM CDT 11/30/2024 3:53 PM CDT Mitesh MELENDEZ LAB BLOOD ORDERABLES Final Resu lt [facility] [address] Department [place] [address] * (ABNORMAL) CBC with auto differential (11/30/2024 12:04 PM CDT) [facility] Signature WBC 7.04 3.80 - 9.90 K/cumm Hgb 13.0 11.9 - 15.5 g/dL [facility] Hct 41.6 35.6 - 45.5 % [facility] Plt 276 150 - 400 K/cumm [facility] MPV 9.8 9.1 - 12.3 fL [facility] RBC 4.57 3.90 - 5.20 M/cumm [facility] MCV 91.0 81.3 - 96.4 fL [facility] MCH 28.4 27.1 - 33.3 pg [facility] MCHC 31.3(L) 32.3 - 35.7 g/dL [facility] RDW CV 13.8 11.1 - 14.9 % [facility] RDW SD 44.9 35.7 - 48.1 fL [facility] NRBC abs 0.00 0.00 - 0.01 K/cumm [facility] Blood 11/30/2024 12:0 4 PM CDT 11/30/2024 3:54 PM CDT us Garret Elias MD LAB BLOOD ORDERABLES Final Re sult [facility] [address] Department [place] [address] documented in this encounter Visit Diagnoses Diagnosis Relapsing-remitting multiple sclerosis Multiple sclerosis documented in this encounter Care Teams Field Cashier Relationship Specialty Start Date End Date Arthur Landon MD [address] [facility] [address] [place] [address] PCP - General Family Medicine 10/28/23 documented as of this encounter
[2024-12-01] VITALS (8 sets, daily range): BP systolic 112–144; BP diastolic 54–92; PULSE 82–105; RESP 10–18; TEMP 36.3–36.6; O2SAT 96–100; BMI 27.9
--- NOTE | ~2024-12-01 | XR_ITS ---
EXAMINATION: XR fluoroscopy no charge DATE: 12/01/2024 12:51 INDICATION: Spinal cord stimulator placement TECHNIQUE: 2 fluoroscopic images of the lower thoracic spine were obtained during procedure performed by Dr. Mcdonnell. Radiologist was not present for the imaging or procedure. The amount of fluoroscopy time used during this procedure was 0.1 minutes. Total DAP was 0.663 Gycm^2. COMPARISON: None. FINDINGS/IMPRESSION: Fluoroscopy utilized during neurosurgical procedure with placement of spinal stimulator which projects of the central canal the lower thoracic spine with distal tip at the level of the superior endplate of T7. See procedure note for further detail. Reviewed, dictated and finalized at location A.
--- OUTSIDE RECORDS SUMMARY | 2024-12-01 00:55 | XMS_ITS | Clinical Summary ---
Author Organization [facility] [employer] Address [address] [place] [address] Care Team Providers Care Industrial Yard Brake Coupler Name Role Phone Arthur Landon MD Primary Care Provider [phone] Source Comments [facility],non-owned Affiliates and Associated Physician Practices is amultiple site organization consisting of ambulatory clinics and hospital sitesin [place], [place], [place] and [place]. This disclosure is being madepursuant to the Care Everywhere program and may not contain all informatio navailable regarding this patient. 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
--- OUTSIDE RECORDS SUMMARY | 2024-12-01 00:55 | XMS_ITS | Data Portability ---
Author Organization [facility], Main Office Address [address] [facility] [address] [place] [address] Assessment No assessment recorded. Plan of Treatment Reminders Order Date Submit Date Provider Last Modified By Organization Details Last Modified Time Details Appointments None recorded. Lab None recorded. Referral None recorded. Procedures None recorded. Surgeries None recorded. Imaging None recorded. Medication Orders clobetasol 0.05 % topical cream 2021 022 [id number], [address], [place], [address], 12:16:38 Otezla 30 mg tablet 2021 022 [facility], [facility], [place], [address], 12:22:19 Patient TargetsNo targets recorded. Patient Instructions Encounter Date Encounter Id Patient Instructions Last Modified By Organization Details Last Modified Time 09/14/2021 [id number] OTEZLA RESTART- was controlling it well when she was on it. 1 MONTH - GIVEN SAMPLES Revd dx and tx. FU 6 mos. [email or web address] Not available 10/10/2021 14:08:26 Reason for Referral None Reported. Problems Name Problem SNOMED Code Status Onset Date Resolution Date Notes Provider Name and Address Organization Details Recorded Time Psoriasis vulgaris 602499583 Active 2021 Tyrell López MD [address], [place], [phone] [facility] 14:43:09 Taking medication for chronic disease 0834806740268 01 Active 2021 Tyrell López MD [address], [place], [phone], [facility] 2 14:43:12 Problem Notes None recorded. Medical Equipment None Reported. Allergies Allergen ID Allergen Name Allergen Category Reaction Reaction Severity Criticality Documentation Date Start Date Code Code System Note Provider Name and Address Organization Details Recorded Time 328 acetamino phen / hydrocodo ne medicatio n Not available Not available Not available 08/12/2017 32424 2 RxNorm Leanne Ochoa [facility] 8 11:08:17 Medications Name [...] Diagnosis SNOMED-CT Code Diagnosis ICD10 Code Diagnosis IMO Codes Diagnosis Note 64319 Tyrell López MD Main Office [address] [place] [address] [address] [place] [phone] 09/14/2021 11:55:55 10/21/2021 16:54:12 Psoriasis vulgaris 584845870 L40.0 Health Concerns Section Related Observation LastModified by Organization Detai ls LastModified Time None Recorded Concern Status LastModified by Organization Details LastModified Time None Recorded Advance Directives Directive None Recorded Payers Insurance Date Sequence Insurance Name Policy Number Policy Castro Covered Member ID Castro Member ID Guarantor Name 10/22/2021 2 [place] Desirae Ballesteros [id number] Desirae Ballesteros 10/21/2021 1 AETNA (POS) [id number] Dheeraj Ballesteros [id number] Desirae Ballesteros Notes Date Note Type Note Provider Name and Address Organization Details Recorded Time 04/22/2018 text/html Psoriasis FU, arms and legs. Not Available Not Available Not Available 12/22/2019 text/html TAC 0.2rf on tac oijntm Not Available Not Available Not Available 03/19/2021 text/html elbows, arms, hands min, scalp, out of oral. Not Available Not Available Not Available 09/14/2021 text/html FU PSORIASIS. LEGS, ELBOWS SCALP.NEEDS RFS ON THE CLOB CREAM, HAS DAVID SCALP.Doing well overall than prior to Otezla but has been out of Otezla for awhile. Needs med. Tyrell López MD [address] [facility] [address], [place], [address], [facility] [place] [facility] 10/21/2021 16:51:22 OBGyn Episode No OBEpisode recorded.
--- OUTSIDE RECORDS SUMMARY | 2024-12-01 00:55 | XMS_ITS | Encounter Summary ---
Author Organization [facility] Healthcare Address [address] [place] [address] Care Team Providers Care Fine Patcher Name Role Phone Arthur Landon MD Primary Care Provider Encounter Details Date Type Department Care Team (Latest Contact Info) Description 11/22/2024 Results Follow-Up [facility] [address] [facility] [address] [place] [id number] Mitesh Talamantes PA [address] [place] [address] MRI Brain W WO Contrast Social History Tobacco Use Types Packs/Day Years Used Date Smoking Tobacco: Never Smokeless Tobacco: Never Alcohol Use Standard Drinks/Week Comments No 0 (1 standard drink = 0.6 oz pur e alcohol) Comments No Sex and Gender Information Value Date Recorded Sex Assigned at Not on file 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
--- OUTSIDE RECORDS SUMMARY | 2024-12-01 00:55 | XMS_ITS | Encounter Summary ---
Author Organization [facility] Healthcare Address [address] [place] [address] Care Team Providers Care Corporate Financial Analyst Name Role Phone Arthur Landon MD Primary Care Provider Tyrell Modi Primary Care Provider [phone] Arthur Landon MD Primary Care Provider Encounter Details Date Type Department Care Team (Late st Contact Info) Description 08/24/2020 Telephone [facility] - Imaging [address] [place] [address] Transcribed Order, Provider Social History Tobacco Use Types Packs/Day Years Used Date Smoking Tobacco: Never Smokeless Tobacco: Never Alcohol Use Standard Drinks/Week Comments No 0 (1 standard drink = 0.6 oz pur e alcohol) Comments Unknown Sex and Gender Information Value Date Recorded Sex Assigned at Not on file Legal 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 Female 1: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 Gender Identity Female 11/20/2023 11:28 AM CDT Sexual Orientation Straight 11/20/2023 11 :28 AM CDT documented as of this encounter Plan of Treatment Not on file documented as of this encounter Visit Diagnoses Not on filedocumented in this encounter Care Teams Corporate Financial Analyst Relationship Specialty Start Date End Date Arthur Landon MD [address] [facility] [address] [place], [place] [id number] PCP - General 05/17/16 12/15/22 Tyrell Modi PA [address] [facility] [address] [place] [address] PCP - General Physician Manager Grocery 12/16/22 10/27/23 Arthur Landon MD [address] [facility] [address] [place] [address] PCP - General Family Medicine 10/28/23 documented as of this encounter
--- OUTSIDE RECORDS SUMMARY | 2024-12-01 00:55 | XMS_ITS | Clinical Summary ---
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
--- OUTSIDE RECORDS SUMMARY | 2024-12-01 00:56 | XMS_ITS | Clinical Summary ---
Author Organization [facility] Address [address] [place] [address] Care Team Providers Care Oil Well Service Operator Name Role Phone Arthur Landon MD Primary Care Provider Allergies Active Allergy Reactions Criticality Noted Date Comments Clarithromycin Other (See comments),Nausea only,Vomiting Low 09/18/2016 Thrush, nausea, Reaction: Nausea, Vomiting, Hydrocodone Nausea only,Vomiting Low Reaction: Nausea, Vomiting, Hydrocodone-Acetaminophen Nausea only,Unknown Low 0 03/13/2022 Sulfamethoxazole-Trimetho prim Rash Medium 06/01/2017 Medications blood [...] FOR PAIN 540 capsule 2 5 Active Additional Information Patient taking differently: 600 mg oral 3 times daily PRN, Reported on 11/30/2024 atorvastatin (LIPITOR) 10 mg tablet Take 1 [...] AT NIGHT 90 tablet 5 5 Active Additional Information Patient taking differently: 0.5 mg oral 2 times daily, Take 1 tablet by mouth every morning and take 2 tablets at night, Reported on 11/30/2024 budesonide-formo teroL (SYMBICORT) 160-4.5 mcg/actuation inhaler Inhale 2 puffs 2 (two) times a day 2 Active Active Problems Problem Noted Date Diagnosed [...] contraindicated. Assessment & Plan (04/24/2022 6:56 AM CAREER DEVELOPMENT CONSULTANT): Currently on Otezla (apremilast). Additive risks in [...] hand numbness when waking and driving. Decreased air drier in both hands. EMG/NCS 04/26/20 formed at [facility]: Bilateral carpal tunnel syndrome, sensory more than motor. Bilateral wrist splints. Prefers to hold off on surgery. Assessment & Plan (04/24/2022 7:02 AM CAREER DEVELOPMENT CONSULTANT): Bilateral hand numbness when waking and driving. Decreased air drier in both hands. EMG/NCS 04/26/20 formed at [facility]: Bilateral carpal tunnel syndrome, sensory more than motor. Bilateral wrist splints. Assessment & Plan (03/13/2022 12:19 PM CAREER DEVELOPMENT CONSULTANT): Bilateral hand numbness when waking and driving. Decreased air drier in both hands. EMG/NCS 04/26/20 formed at [facility]: Bilateral carpal tunnel syndrome, sensory more than motor. Bilateral wrist splints. Assessment & Plan (09/13/2021 7:40 AM CDT): Bilateral hand numbness when waking and driving. Decreased air drier in both hands. EMG/NCS 04/26/20 formed at [facility]: Bilateral carpal tunnel syndrome, sensory more than motor. Bilateral wrist splints. Assessment & Plan (03/15/2021 1:22 PM CAREER DEVELOPMENT CONSULTANT): Bilateral hand numbness when waking and driving. Decreased air drier in both hands. EMG/NCS 04/26/20 formed at [facility]: Bilateral carpal tunnel syndrome, sensory more than motor. Bilateral wrist splints. Assessment & Plan (06/01/2020 8:33 AM CDT): Bilateral hand numbness when waking and driving. Decreased air drier in both hands. EMG/NCS at [facility] was apparently consistent with bilateral carpal tunnel syndrome. Report requested. Wrist splints ordered. Cervical spinal stenosis 05/18/2019 Assessment & Plan (10/15/2023 6:36 AM CDT): Status post anterior cervical diskectomy and fusion with Dr. Dheeraj Alejandro August 2018 Assessment & Plan (04/24/2022 7:03 AM CAREER DEVELOPMENT CONSULTANT): Status post anterior cervical diskectomy and fusion with Dr. Dheeraj Alejandro August 2018 Assessment & Plan (03/13/2022 12:27 PM CAREER DEVELOPMENT CONSULTANT): Status post anterior cervical diskectomy and fusion with Dr. Dheeraj Alejanrdo August 2018 Assessment & Plan (09/13/2021 7:40 AM CDT): Status post anterior cervical diskectomy and fusion with Dr. Dheeraj Alejandro August 2018 Assessment & Plan (03/15/2021 12:55 PM CAREER DEVELOPMENT CONSULTANT): Status post anterior cervical diskectomy and fusion [...] Hylton. Assessment & Plan (04/24/2022 7:03 AM CAREER DEVELOPMENT CONSULTANT): Severe L4-5 lumbar stenosis and daniel severe L5-S1 NF stenosis. Cymbalta, Neurontin F/u pain management Had neurostimulator placed (MRI compatible) Seen Dr. Hylton. Assessment & Plan (03/13/2022 12:27 PM CAREER DEVELOPMENT CONSULTANT): Severe L4-5 lumbar stenosis and daniel severe L5-S1 NF stenosis. Cymbalta, Neurontin F/u pain management Had neurostimulator placed (MRI compatible) Seen Dr. Hylton. Assessment & Plan (09/13/2021 7:40 AM CDT): Severe L4-5 lumbar stenosis and daniel severe L5-S1 NF stenosis. Cymbalta, Neurontin F/u pain management Had neurostimulator placed (MRI compatible) Seen Dr. Hylton. Assessment & Plan (03/15/2021 12:54 PM CAREER DEVELOPMENT CONSULTANT): Severe L4-5 lumbar stenosis and daniel severe [...] past Assessment & Plan (04/24/2022 7:03 AM CAREER DEVELOPMENT CONSULTANT): Improved post-menopause Excedrin as needed On Topamax in past Assessment & Plan (03/13/2022 12:27 PM CAREER DEVELOPMENT CONSULTANT): Improved post-menopause Excedrin as needed On Topamax in past Assessment & Plan (09/13/2021 7:41 AM CDT): Improved post-menopause Excedrin as needed On Topamax in past Assessment & Plan (03/15/2021 12:54 PM CAREER DEVELOPMENT CONSULTANT): Improved post-menopause Excedrin as needed On Topamax [...] follow-up Assessment & Plan (04/24/2022 7:04 AM CAREER DEVELOPMENT CONSULTANT): Cymbalta 60 mg BID Bupropion XL 150 mg daily Psychiatry follow-up Assessment & Plan (03/15/2022 7:06 AM CAREER DEVELOPMENT CONSULTANT): Cymbalta 60 mg BID Bupropion XL 150 mg daily Psychiatry follow-up Assessment & Plan (09/13/2021 7:41 AM CDT): Cymbalta 60 mg BID Bupropion XL 150 mg daily Increased stress with marital issues and daughter with anxiety/depression. Assessment & Plan (03/15/2021 1:21 PM CAREER DEVELOPMENT CONSULTANT): Cymbalta 60 mg BID Bupropion XL 300 [...] stimulator. Assessment & Plan (04/24/2022 7:02 AM CAREER DEVELOPMENT CONSULTANT): Kesimpta discontinued on April 08, 2022 due [...] spine October 2022. Future MRI imaging at [facility] (has MRI-compatible spinal cord stimulator). Assessment & Plan (03/15/2022 7:05 AM CAREER DEVELOPMENT CONSULTANT): Kesimpta 20 mg subcutaneous monthly. The benefits [...] spine October 2022. Future MRI imaging at [facility] (has MRI-compatible spinal cord [...] spine October 2022. Future MRI imaging at [facility] (has MRI-compatible spinal cord stimulator). Assessment & Plan (03/15/2021 1:19 PM CAREER DEVELOPMENT CONSULTANT): Kesimpta 20 mg subcutaneous monthly. The benefits [...] IU D3 supplement. Future MRI imaging at [facility] (has MRI-compatible spinal cord [...] brain and cervical spine July 2020 at [facility] (has MRI- compatible spinal [...] is model number 3662 and compatible per director operating room manual for an MRI with 1.5T She [...] you have not heard about your MRI [phone]. 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 03/11/2016 12/04/2017 Lumbago 04/19/2011 12/04/2017 Encounters Date Type Department Care Team Description 11/30/2024 11:50 AM CDT Lab [address] [address] Relapsing-remitting multiple sclerosis; Multiple sclerosis 11/30/2024 11:15 AM CDT Office Visit [facility] Care [address] [place] [address] [address] [address] Garret Elias MD Relapsing-remitting multiple sclerosis (Primary Dx) 11/22/2024 Results Follow-Up [facility] in [address], [place] [address] Mitesh Talamantes PA MRI Brain W WO Contrast 11/20/2024 11:00 AM CDT - 11/20/2024 11:59 PM CDT Hospital Encounter [facility] - Imaging [address] [place] [address] Multiple sclerosis Discharge Disposition: Discharge to home or self care 11/15/2024 Orders Only [facility] [address] [facility] [address] [place] [address] Mitesh Talamantes PA Multiple sclerosis (HCC) (Primary [...] 1991 optic neuritis; improved 11/24/18 Multiple sclerosis 2009 [...] on file Legal Sex Female 1:09 AM CAREER DEVELOPMENT CONSULTANT Gender Identity Female 11/20/2023 11:28 AM CDT Sexual Orientation Straight 11/20/2023 11 :28 AM CDT Obstetrics History Last Filed Vital Signs Vital Sign Reading Time Taken Comments Blood Pressure 110/60 11/30/2024 11:04 AM CDT Pulse 98 11/30/2024 11:04 AM CDT Temperature 36.3 C (97.3 F) 05/26/2024 11:19 AM CDT Respiratory Rate 18 12/21/2018 1:39 PM CAREER DEVELOPMENT CONSULTANT Oxygen Saturation 97% 11/30/2024 11:04 AM CDT Inhaled Oxygen Concentration - - Weight 83.6 kg (184 lb 6.4 oz) 11/30/2024 11:04 AM CDT Height 172.7 cm (5' 8) 11/30/2024 11:04 AM CDT Body Mass Index 28.04 11/30/2024 11:04 AM CDT Plan of Treatment Health Maintenance Due Date Last Done Comments Cervical Cancer Screening 1967 Colon Cancer Screening-Colonoscopy 1967 Depression Screening 1967 Hepatitis B Screening 1985 Regular Well Visit/Exam 18-64 1985 Pneumococcal vaccine <65 (2 of 2 - PCV) 02/06/2024 02/05/2023, 12/09/2018, 11/17/2006, Additional history exists Covid-19 Vaccine ( - 2024-2 6 season) 2024 12/17/2021, 01/24/2021, 06/12/2020, Additional history exists Influenza Vaccine (#1) 2024 , 12/17/2021, 12/07/2020, Additional history exists Breast Cancer Screening-Mammogram 01/19/2025 024 DTaP/Tdap/Td Vaccine (3 - Td or Tdap) 04/27/2029 04/28/2019, 12/11/2011 Hepatitis C Screening Completed 11/04/2018 Zoster Vaccine Completed 11/16/2018, 01/12/2018 Medical Devices Implanted Type Area Tractor Sweeper Driver Device Identifier Shelf Expiration Date Model / Serial / Lot Stimulator- [id number] Implanted:Qty: 1 on 08/08/2023 by Kalyani Gonsalez MD Stimulator N/A: Spine Thoracic Anders ETERNA [id number] / [id number] / Description:Eterna IPC 26551 with two 3186 leads 1.5T only this unit replaced the older unit all older components removed per pt Unit must be placed in mri mode Kit Neurostimulator Octrode L60 Cm Percutaneous 8 Electrode Lead - [id number] Implanted:Qty: 1 on 06/27/2017 by Kalyani Gonsalez MD at [facility] N/A: Spine Lumbar [employer] 12/27/2018 [id number] / / [id number] Kit Neurostimulator Octrode L60 Cm Percutaneous 8 Electrode Lead - [id number] Implanted:Qty: 1 on 06/27/2017 by Kalyani Gonsalez MD at [facility] N/A: Spine Lumbar [employer] 04/21/2019 [id number] / / [id number] [place] Lead Junior-Lock - [id number] Implanted:Qty: 1 on 06/27/2017 by Kalyani Gonsalez MD at [facility] N/A: Spine Lumbar [employer] 03/26/2019 1192 / / [id number] [place] Lead Junior-Lock - [id number] Implanted:Qty: 1 on 06/27/2017 by Kalyani Gonsalez MD at [facility] N/A: Spine Lumbar [employer] 07/31/2018 1192 / / [id number] [employer] 3660 Contrlsys Proclaim Elite 4.95cmx5.55cm 5 Implantable Pulse Tonic - [id number] Implanted:Qty: 1 on 11/27/2018 by Kalyani Gonsalez MD at [facility] N/A: Spine Lumbar [employer] 07/02/2020 3660 CONTRLSYS / / [id number] Explanted Type Area Tractor Sweeper Driver Device Identifier Shelf Expiration Date Model / Serial / Lot Generator Neurostimulator Proclaim Elite Thk.53 In L2.63 In X H1.98 In 2.1 Oz 7 Ipg Implantable Recharge Free Chronic Pain - [id number] Implanted:Qty: 1 on 06/27/2017 by Kalyani Gonsalez MD at [facility] Explanted:Qty: 1 on 11/27/2018 by Kalyani Gonsalez MD at [facility] N/A: Spine Lumbar [employer] 05/07/2019 3662 / / [id number] Description:EXPLANT INTACT A ND GIVEN TO [facility]E REP TO TAKE FOR INTERROGATION Procedures Procedure Name Priority Date/Time Associated Diagnosis Comments EGFR Routine 11/30/2024 12:04 PM CDT Multiple sclerosis URINALYSIS, MICROSCOPIC ONLY Routine 11/30/2024 12:04 PM CDT Multiple sclerosis DIFFERENTIAL AUTO Routine 11/30/2024 12: 04 PM CDT Relapsing-remitti ng multiple sclerosis BILIRUBIN, DIRECT Routine 11/30/2024 12: 04 PM CDT Multiple sclerosis COMPREHENSIVE METABOLIC PANEL Routine 11/30/2024 12:04 PM CDT Multiple sclerosis CBC WITH AUTO DIFFERENTIAL Routine 11/30/2024 12:04 PM CDT Relapsing-remitti ng multiple sclerosis URINALYSIS AND REFLEX TO MICROSCOPIC AND CULTURE Routine 11/30/2024 12:04 PM CDT Multiple sclerosis URINE CULTURE Routine 11/30/2024 12:04 PM CDT MRI BRAIN W WO CONTRAST Schedule Routine, Read Routine (OP Routine) 11/20/2024 1:43 PM CDT Multiple sclerosis HEPATIC FUNCTION PANEL Routine 10/20/2024 12:39 PM CDT Multiple sclerosis (HCC) Medication management HEPATIC FUNCTION PANEL Routine 09/16/2024 1:37 PM CDT Multiple sclerosis (HCC) Medication management SCREENING MAMMOGRAM BILATERAL W DICK Schedule Routine, Read Routine (OP Routine) 01/20/2024 2:25 PM CAREER DEVELOPMENT CONSULTANT Screening mammogram, encounter for HEPATITIS PANEL, ACUTE Routine 11/04/2018 10:36 AM CDT Multiple sclerosis (HCC) Encounter for other specified special examinations Other fatigue from Last 3 Months or Most Recently Relevant to Health Maintenance Results * eGFR (11/30/2024 12:04 PM CDT) [...] MELENDEZ LAB BLOOD ORDERABLES Final Resu lt [facility] [address] [place] [address] [phone] * Differential, auto (11/30/2024 12:04 PM CDT) Neutrophil abs 5.04 1.50 - 6.50 K/cumm Imm gran abs 0.02 0.00 - 0.10 K/cumm [facility] Lymphocyte abs 1.17 0.80 - 3.30 K/cumm [facility] Monocyte abs 0.65 0.20 - 0.80 K/cumm [facility] Eosinophil abs 0.10 0.00 - 0.50 K/cumm [facility] Basophil abs 0.06 0.00 - 0.10 K/cumm [facility] Neutrophil pct 71.6 % [facility] Comment: Interpretive Data Percent cell count reference ranges are not reported, since discordance with absolute values may lead to misinterpretation of CBC data. Current Interpretive Data was last revised on 2017. Imm gran pct 0.3 % [facility] Comment: Interpretive Data Percent cell count reference ranges are not reported, since discordance with absolute values may lead to misinterpretation of CBC data. Current Interpretive Data was last revised on 2017. Lymphocyte pct 16.6 % [facility] Comment: Interpretive Data Percent cell count reference ranges are not reported, since discordance with absolute values may lead to misinterpretation of CBC data. Current Interpretive Data was last revised on 2017. Monocyte pct 9.2 % [facility] Comment: Interpretive Data Percent cell count reference ranges are not reported, since discordance with absolute values may lead to misinterpretation of CBC data. Current Interpretive Data was last revised on 2017. Eosinophil pct 1.4 % [facility] Comment: Interpretive Data Percent cell count reference ranges are not reported, since discordance with absolute values may lead to misinterpretation of CBC data. Current Interpretive Data was last revised on 2017. Basophil pct 0.9 % [facility] Comment: Interpretive Data Percent cell count reference ranges are not reported, since discordance with absolute values may lead to misinterpretation of CBC data. Current Interpretive Data was last revised on 2017. Blood 11/30/2024 12:0 4 PM CDT 11/30/2024 3:54 PM CDT us Garret Elias MD LAB BLOOD ORDERABLES Final Re sult 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 [address] Department [place] [address] * (ABNORMAL) Urinalysis reflex to microscopic and culture Urine, clean voided (11/30/2024 12:04 PM CDT) Color, ur Yellow Yellow Clarity, ur Clear Clear [facility] Specific gravity, ur 1.016 1.003 - 1.030 [facility] pH, urine 7.0 [facility] Comment: Interpretive Data U rine pH is affected by diet, medications, systemic acid-base disturbances, and renal tubular function. pH may affect urinary stone formation. For example, urine pH below 6.0 may help reduce the tendency for calcium phosphate stones and pH greater than 6.0 may reduce the tendency for uric acid stone formation. Source: [facility] Current Interpretive Data was last revised on 2017 Protein, ur ql Trace Negative [facility] Glucose, ur ql Negative Negative [facility] Ketones, ur Negative Negative [facility] Bilirubin, ur Negative Negative [facility] Blood, ur Negative Negative [facility] Urobilinogen, ur <2.0 <2.0 mg/dL [facility] Nitrite, ur Negative Negative [facility] Leukocyte esterase, ur 2+(A) Negative [facility] UA reflex comment Reflex to microscopic UA will be performed. [facility] Urine, clean voided 11/30/2024 12:04 PM CDT 11/30/2024 12:04 PM CDT us Mitesh MELENDEZ LAB MICROBIOLOGY - GENERAL BEBE RAMIREZ Final Result Performing Organization Address [facility]/ZIP Co de Phone Number 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 [address] Department [place] [address] * (ABNORMAL) CBC with auto differential (11/30/2024 12:04 PM CDT) Pathologist [facility] WBC 7.04 3.80 - 9.90 K/cumm Hgb 13.0 11.9 - 15.5 g/dL [facility] Hct 41.6 35.6 - 45.5 % [facility] Plt 276 150 - 400 K/cumm [facility] MPV 9.8 9.1 - 12.3 fL [facility] RBC 4.57 3.90 - 5.20 M/cumm [facility] MCV 91.0 81.3 - 96.4 fL [facility] MCH 28.4 27.1 - 33.3 pg [facility] MCHC 31.3(L) 32.3 - 35.7 g/dL [facility] RDW CV 13.8 11.1 - 14.9 % [facility] RDW SD 44.9 35.7 - 48.1 fL [facility] NRBC abs 0.00 0.00 - 0.01 K/cumm [facility] Blood 11/30/2024 12:0 4 PM CDT 11/30/2024 3:54 PM CDT us Garret Elias MD LAB BLOOD ORDERABLES Final Re sult [facility] [address] Department [place] [address] * (ABNORMAL) Urinalysis, microscopic only (11/30/2024 12:04 PM CDT) Pathologist [facility] WBC, ur 11-20(A) 0 - 5 /HPF RBC, ur 3-5(A) 0 - 2 /HPF [facility] Epithelial cells, squamous, ur 1-5 0 - 5 /HPF [facility] Mucous, ur Present(A) [facility] Culture Reflex Comment Reflex to urine culture will be performed. [facility] Urine, clean voided 11/30/2024 12:04 PM CDT 11/30/2024 3:54 PM CDT Mitesh MELENDEZ LAB URINE ORDERABLES Final Resu lt Performing Organization Address City/[facility]/ZIP Co de Phone Number 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 [address] Department [place] [address] * Bilirubin, direct (11/30/2024 12:04 PM CDT) Pathologist [facility] Bilirubin, direct <0.2 0.1 - 0.3 mg/dL Blood 11/30/2024 12:0 4 PM CDT 11/30/2024 3:53 PM CDT Mitesh MELENDEZ LAB BLOOD ORDERABLES Final Resu lt Performing Organization Address [facility] Co de Phone Number 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 [address] Department [place] [address] * Comprehensive metabolic panel (11/30/2024 12:04 PM CDT) [facility] Sodium 142 135 - 145 mmol/L Potassium, pl 4.4 3.3 - 4.9 mmol/L [facility] Chloride 106 97 - 110 mmol/L [facility] CO2 25 22 - 32 mmol/L [facility] Anion gap 11 2 - 15 mmol/L [facility] BUN 10 6 - 25 mg/dL [facility] Creatinine 0.79 0.60 - 1.10 mg/dL [facility] Glucose 104 70 - 199 mg/dL [facility] Comment: Interpretive Data Fasting glucose >/= 126 [...] 8.5 - 10.3 mg/dL [facility] Bilirubin, total 0.3 0.1 - 1.2 mg/dL [facility] Protein, pl 6.7 6.5 - 8.5 g/dL [facility] Albumin 4.3 3.5 - 5.0 g/dL [facility] Alk phos 99 40 - 130 Units/L [facility] ALT 17 7 - 45 Units/L [facility] AST 15 10 - 45 Units/L [facility] Blood 11/30/2024 12:0 4 PM CDT 11/30/2024 3:53 PM CDT us Mitesh MELENDEZ LAB BLOOD ORDERABLES Final Resu lt [facility] [address] [place] [address] * MRI Brain W WO Contrast (11/20/2024 1:43 PM CDT) Anatomical Region Laterality Modality Head and Neck N/A Magnetic Resonan ce 11/22/2024 10:0 5 AM CDT Impressions 11/22/2024 11:41 AM CDT No significant interval change in intracranial white matter lesions. No enhancing lesions. Dictated by: Sergio Hong MD The radiology attending physician has personally reviewed this study, and had reviewed and/or edited this written report and agrees with it. Electronically signed by: Kelley Winter M.D. Narrative 11/22/2024 11:41 AM CDT EXAMINATION: Magnetic resonance imaging (MRI) of the brain and brainstem without and with contrast HISTORY: Multiple sclerosis follow-up TECHNIQUE: Multiplanar multi-weighted MRI of the brain, brainstem was performed without and with intravenous contrast using the multiple sclerosis protocol. Scanner: [facility] Field Strength: 1.5T Contrast information: 17 mL Gadoterate Meglumine IV The post-contrast scan was performed approximately 5 minutes after IV contrast administration. COMPARISON: 11/17/2023 FINDINGS: BRAIN: There is no interval change. There are multiple foci of T2W/FLAIR hyperintensity within the brain white matter. This includes periventricular, callosal, and cortical/juxtacortical lesions. T1 hypointensities/black holes: 5 Enhancing Brain Lesions: None lesions Parenchymal Volume Loss: None Central Vein Sign: Not performed Other Significant Findings: none The scalp and calvarium are normal. Superior sagittal sinus demonstrates normal venous flow. Corpus callosum is normal in shape and signal intensity. Diffusion weighted images reveal no hyperintensities to suggest acute cerebral infarction. The susceptibility weighted sequences reveal no evidence of acute or chronic hemorrhage. The ventricles are normal in size and position without evidence of hydrocephalus. The paranasal sinuses are normal. The visualized portions of the mastoids are unremarkable. Right ocular lens replacement. The orbits are otherwise appear normal. Normal flow voids are demonstrated in the carotid arteries and basilar artery. Procedure Note Kelley Winter MD - 11/22/2024 EXAMINATION: Magnetic resonance imaging (MRI) of the brain and brainstem without and with contrast HISTORY: Multiple sclerosis follow-up TECHNIQUE: Multiplanar multi-weighted MRI of the brain, brainstem was performed without and with intravenous contrast using the multiple sclerosis protocol. Scanner: [facility] Field Strength: 1.5T Contrast information: 17 mL Gadoterate Meglumine IV The post-contrast scan was performed approximately 5 minutes after IV contrast administration. COMPARISON: 11/17/2023 FINDINGS: BRAIN: There is no interval change. There are multiple foci of T2W/FLAIR hyperintensity within the brain white matter. This includes periventricular, callosal, and cortical/juxtacortical lesions. T1 hypointensities/black holes: 5 Enhancing Brain Lesions: None lesions Parenchymal Volume Loss: None Central Vein Sign: Not performed Other Significant Findings: none The scalp and calvarium are normal. Superior sagittal sinus demonstrates normal venous flow. Corpus callosum is normal in shape and signal intensity. Diffusion weighted images reveal no hyperintensities to suggest acute cerebral infarction. The susceptibility weighted sequences reveal no evidence of acute or chronic hemorrhage. The ventricles are normal in size and position without evidence of hydrocephalus. The paranasal sinuses are normal. The visualized portions of the mastoids are unremarkable. Right ocular lens replacement. The orbits are otherwise appear normal. Normal flow voids are demonstrated in the carotid arteries and basilar artery. IMPRESSION: No significant interval change in intracranial white matter lesions. No enhancing lesions. Dictated by: Sergio Hong MD The radiology attending physician has personally reviewed this study, and had reviewed and/or edited this written report and agrees with it. Electronically signed by: Kelley Winter M.D. Mitesh MELENDEZ IMG MRI PROCEDURES Final Result * Hepatic function panel (10/20/2024 12:39 PM [...] 9 PM CDT 10/20/2024 12:40 PM CDT Narrative [facility] - 10/21/2024 6:05 AM CDT FASTING:NO FASTING: NO Garret Elias MD LAB BLOOD ORDERABLES Final Re sult [facility] [address] [place] [address] * Hepatic function panel (09/16/2024 1:37 PM [...] BLOOD ORDERABLES Final Re sult [facility] [address] [place] [address] * Screening Mammogram Bilateral W Dick (01/20/2024 2:25 PM CAREER DEVELOPMENT CONSULTANT) Anatomical Region Laterality Modality Breast Bilateral Mammography Narrative 01/21/2024 4:13 PM CAREER DEVELOPMENT CONSULTANT Mammogram Technique: Bilateral Digital Breast Tomosynthesis, Bilateral C-view 2D Screening mammogram. Views obtained: bilateral craniocaudal and bilateral mediolateral oblique. Computer Aided Detection was performed. Mammogram Findings: The present examination has been compared to prior imaging studies performed at [facility] on 01/13/2023, and at [facility] on 02/28/2021 and 10/30/2022. There are [...] compared to prior imaging studies performed at [facility] on 01/13/2023, and at [facility] on 02/28/2021 and 10/30/2022. There are scattered areas of fibroglandular density. There is no suspicious abnormality in either breast. Impression: There is no mammographic evidence of malignancy. Annual screening mammography is recommended. OVERALL FINAL ASSESSMENT: BI-RADS CATEGORY 1: Negative. us Self Screening Mammogram IMG MAMMO PROCEDURES Fi nal Result * Hepatitis panel, acute (11/04/2018 10:36 AM CDT) Hep A IgM Non-Reactive Non-Reactive [facility] Hep B core IgM Non-Reactive Non-Reactive [facility] Hep C Ab Non-Reactive Non-Reactive [facility] HepBsAg Nonreactive Nonreactive [facility] Blood specimen (specimen) 11/04/2018 10:36 AM CDT 11/04/2018 12:46 PM CDT Angélica Aviles NP LAB MICROBIOLOGY - GENERAL ORDER GÉNESIS Final Result [facility] [address] [place], [place] [id number] from Last 3 Months or Most Recently Relevant to Health Maintenance Insurance MEDICARE MEDICARE MEDICARE Advance Directives For more information, please contact: [phone] * Full Code (Latest Code Status on File) Date Activated Date Inactivated Comments 11/27/2018 4:29 PM 11/27/2018 8:29 PM Care Teams Oil Well Service Operator Relationship Specialty Start Date End Date Arthur Landon MD [address] [facility] [address] [place] [address] PCP - General Family Medicine 10/28/23
--- OUTSIDE RECORDS SUMMARY | 2024-12-01 00:56 | XMS_ITS | Patient Health Record ---
Author Organization [facility] As [facility] Address [address] [place] [address] Care Team Providers Care Earth Science Laboratory Technician Name Role Phone Cody Rice Unavailable [phone] Allergies Allergen (clinical drug ingredient) Drug/Non Drug [...] MG/3ML Solution Pen-injector Subcutaneous *Pick strength-form from [facility] for eRX* 06/24/2023 Active Clobetasol Propionate 0.05% Cream External 06/24/2023 Active DEXCOM G6 EACH MISCELLANEOUS *Reorder from [facility] for eRx and Interaction Alerts* 06/24/2023 Active Auvelity 45-105 MG Tablet Extended Release 1 TABLET Oral TWICE A DAY; Duration: 90 days Active MARIJUANA (CANNABIS) ORAL EDIBLE *Reorder from [facility] for eRx and Interaction Alerts* 06/24/2023 Active methylPREDNISolone 4 MG Tablet Therapy Pack Oral 06/24/2023 Active Baclofen 20 MG Tablet Oral 06/24/2023 Active Losartan Potassium 25 MG Tablet Oral 06/24/2023 Active Atorvastatin Calcium 10 MG Tablet Oral 06/24/2023 Active DULoxetine HCl 60 MG Capsule Delayed Release Particles Oral prescribed by neurolgy 06/24/2023 Active KESIMPTA PEN 20 MG/0.4 ML SUBCUTANEOUS PEN INJECTOR *Reorder from [facility] for eRx and Interaction Alerts* 06/24/2023 Active [...] Vaccine Route Administration Date Status Comme nts Zoster Unknown 11/16/2018 Administered Tdap Unknown 04/28/2019 Administered Pneumococcal polysaccharide PPV23 Unknown 02/17/2001 Ad ministered Pneumococcal polysaccharide PPV23 Unknown 02/05/2023 Ad ministered Pfizer Biontech Covid-19 Vac cine 2nd dose Unknown 05/22/2020 Administered Pfizer Biontech Covid-19 Vac cine 2nd dose Unknown 06/12/2020 Administered Pfizer [employer] Covid-19 Vac cine 2nd dose Unknown 01/24/2021 Administered Influenza, unspecified formulation Unknown 11/17/2017 A dministered Influenza, seasonal, injecta ble, preservative free, 3 yrs and above Unknown 01/18/2013 Administered Influenza, seasonal, injecta ble, preservative free, 3 yrs and above Unknown 12/14/2013 Administered Influenza, injectable, MDCK, preservative free Unknown 02/05/2023 Administered Influenza virus vaccine, quadrivalent (IIV4), split virus, 0.25 mL dosage Unknown 12/21/2014 Administered Influenza virus vaccine, quadrivalent (IIV4), split virus, 0.25 mL dosage Unknown 12/03/2018 Administered Social History Sex Assigned At : Social History Observation Description Sex Assigned At Female Social History Additional Details Category Social Info Options Details Migrated Social History Migrated Social History Alcohol Intake: None 12/21/2019,Tobacco Years: Never smoker 12/21/2019 Problems Problem Type SNOMED Code ICD Code Onset Dates Problem Status W/U Status Risk Notes Problem Mild recurrent major depression (89212240) Major depressive disorder, recurrent, mild (F33.0) Active confirmed Problem Generalized anxiety disorder (18223172) Generalized anxiety disorder (F41.1) Active confirmed Problem Posttraumatic stress disorder (61014254) Post-traumatic stress disorder, chronic (F43.12) Active confirmed Problem Insomnia disorder related to another mental disorder (02252452) Insomnia due to other mental disorder (F51.05) Active confirmed Vital Signs Heart Rate 101 /min 08/31/2024 Height-cm 172.72 cm 08/31/2024 Blood pressure diastolic 70 mm Hg 08/31/2024 Weight-kg 84.37 kg 08/31/2024 Height 68.00 in 08/31/2024 Blood pressure systolic 124 mm Hg 08/31/2024 Weight 186 lbs 08/31/2024 BMI 28.28 kg/m2 08/31/2024 Encounters Encounter Location Date Provider Diagnosis [facility] [address] [address] 03/02/2024 Cody Rice Generalized anxiety disorder F41.1 ; Major depressive disorder, recurrent, mild F33.0 ; Insomnia due to other mental disorder F51.05 and Post-traumatic stress disorder, chronic F43.12 [facility] [address] [address] 05/25/2024 Cody Rice Major depressive disorder, recurrent, mild F33.0 ; Generalized anxiety disorder F41.1 ; Insomnia due to other mental disorder F51.05 ; Post-traumatic stress disorder, chronic F43.12 and Encounter for screening for cardiovascular disorders Z13.6 [facility] [address] [address] 08/31/2024 Cody Rice Major depressive disorder, recurrent, mild F33.0 ; Generalized anxiety disorder F41.1 ; Insomnia due to other mental disorder F51.05 and Post-traumatic stress disorder, chronic F43.12 [facility] [address] [address] 07/20/2024 Cody Rice Major depressive disorder, recurrent, mild F33.0 Assessments Encounter Date Diagnosis (ICD Code) Assessment Notes Treatment Notes Treatment Clinical Notes Section Notes 08/31/2024 Major depressive disorder, recurrent, mild (ICD-10 - F33.0) cont Auvelity 45mg -105mg bid, on Duloxetine 60mg bid by neurolgist 07/20/2024 Major depressive disorder, recurrent, mild (ICD-10 - F33.0) 05/25/2024 Major depressive disorder, recurrent, mild (ICD-10 - F33.0) cont Auvelity 45mg -105mg bid, on Duloxetine 60mg bid by neurolgi 03/02/2024 Generalized anxiety disorder (ICD-10 - F41.1) on clonazepam by neurologist 05/25/2024 Insomnia due to other mental disorder (ICD-10 - F51.05) stable 05/25/2024 Generalized anxiety disorder (ICD-10 - F41.1) on clonazepam by neurologist 03/02/2024 Major depressive disorder, recurrent, mild (ICD-10 - F33.0) cont Auvelity 45mg -105mg bid, on Duloxetine 60mg bid by neurolgi 08/31/2024 Generalized anxiety disorder (ICD-10 - F41.1) on clonazepam by neurologist 03/02/2024 Insomnia due to other mental disorder (ICD-10 - F51.05) 05/25/2024 Post-traumatic stress disorder, chronic (ICD-10 - F43.12) 08/31/2024 Insomnia due to other mental disorder (ICD-10 - F51.05) stable 03/02/2024 Post-traumatic stress disorder, chronic (ICD-10 - [...] depression, which she attributes to difficulties finding [id number] employment and cognitive challenges (memory and word-finding [...] been made to correct them. 08/31/2024 [employer] Hope, a patient with multiple sclerosis (MS), presents [...] Provider Name:Cody dos santos, 01/04/2025 01:30:00 PM, [address], [address], [place], [address], Insurance Providers Payer Name Payer Address Payer Phone Subscriber Number Group Number Insured Name Patient Relationship to Insured Coverage Start Date Coverage End Date [employer] Pos [address] [place] [address] [id number] [address]OPE Spouse - patient is the spouse of the insured Medicare- [place] Medicare [address] [place] [phone] [id number] LINA HOPE Self - patient is the [...] with various healthcare providers at [facility], including Sue Parry RN, Garret Elias MD, [...] Any surgical history 02/17/2018 Removal of gallbladder (64524) 3 Endometrial ablation (17931) 08/17/2006 Cataract surgery (43543) 02/16/2020
[2024-12-01] MEDS: LACTATED RINGERS 1,000 ML 30 ML IV CONT (09:30)
--- NOTE | 2024-12-01 10:04 | WPDANESEPPF ---
Anes - Initial Pre Proc Eval Procedure: Operation Date: 12/01/24 10:30 Proposed Procedures p Removal of Spinal Cord Lead and Generator, T8 Laminotomy for Placement of Spinal Cord Stimulator - Phyllis Mcdonnell MD Date/Time: 12/01/24 10:04 Surgeon: Phyllis Mcdonnell MD Pre Op Diagnosis: migration and failed spinal cord stimulator, Patient Data Age: 59 Gender: F Height: 1.73 m Weight: 84.2 kg Last Vital Signs Temp 36.6 C 11/18/24 14:33 Pulse 102 H 11/18/24 14:33 Resp 16 11/18/24 14:33 BP 108/64 11/18/24 14:33 Pulse Ox 97 11/18/24 14:33 O2 Del Method Room Air 11/18/24 14:33 Allergies Allergy/AdvReac Type Severity Reaction Status Date / Time Sulfa (Sulfonamide AdvReac Nausea and Verified 12/01/24 10:03 Antibiotics) Vomiting Home Medications ?Medication ?Instructions ?Recorded ?Confirmed ?Type blood-glucose,route manager,cont #1 ea 05/15/22 11/18/24 Rx (Dexcom G6 Chemical Engineer) blood-glucose sensor (Dexcom G6 #3 ea 05/05/23 11/18/24 Rx Sensor device) dextromethorphan IR 45 1 tablet PO BID 09/03/23 12/01/24 History mg-bupropion ER 105 mg biphasic tablet (Auvelity) clonazepam 0.5 mg tablet 1 mg PO BID PRN anxiety 01/27/24 12/01/24 History duloxetine 60 mg capsule,delayed 60 mg PO BID 01/27/24 12/01/24 History release prednisolone acetate 1 % eye 1 drp RIGHT EYE Q12H PRN headache 01/27/24 12/01/24 History drops,suspension losartan 25 mg tablet 25 mg PO DAILY #90 tabs 04/26/24 12/01/24 Rx blood-glucose transmitter (Dexcom #1 ea 06/30/24 11/18/24 Rx G6 Transmitter device) teriflunomide 14 mg tablet 14 mg PO HS 09/16/24 12/01/24 History semaglutide 1 mg/dose (4 mg/3 mL) 1 mg (0.75 mL) subcut WEEKLY #3 mL 10/05/24 12/01/24 Rx subcutaneous pen injector (Ozempic) meclizine 12.5 mg tablet 12.5 mg PO TID PRN dizziness #30 11/04/24 12/01/24 Rx tabs Moringa oleifera 500 mg capsule 2,000 mg PO QAM 11/18/24 12/01/24 History acetaminophen 500 mg tablet 500 mg PO Q6H PRN pain 11/18/24 12/01/24 History (Acetaminophen Pain Relief) albuterol sulfate 90 mcg/actuation 1 inh inhalation Q4H PRN shortness 11/18/24 12/01/24 History aerosol inhaler of breath or wheezing atorvastatin 10 mg tablet 10 mg PO HS 11/18/24 12/01/24 History baclofen 20 mg tablet 20 mg PO BID 11/18/24 12/01/24 History biotin 10,000 mcg/mL (10 mg/mL) 15,000 mcg PO DAILY 11/18/24 12/01/24 History oral liquid calcium carbonate 600 mg PO BID 11/18/24 12/01/24 History cetirizine 10 mg capsule (All Day 10 mg PO QAM 11/18/24 12/01/24 History Allergy (cetirizine)) cholecalciferol (vitamin D3) 25 25 mcg PO ONCE 11/18/24 12/01/24 History mcg (1,000 unit) capsule fluticasone propionate 50 1 spray intranasal BID PRN nasal 11/18/24 12/01/24 History mcg/actuation nasal congestion spray,suspension (Flonase Allergy Relief) gabapentin 300 mg capsule 600 mg PO BID 11/18/24 12/01/24 History ibuprofen 200 mg tablet (IBU-200) 600 mg PO Q6H PRN pain 11/18/24 12/01/24 History magnesium citrate 125 mg capsule 225 mg PO DAILY 11/18/24 12/01/24 History multivitamin (Daily Multi-Vitamin 1 tablet PO DAILY 11/18/24 12/01/24 History tablet) turmeric 200 mg-green tea 200 1 cap PO HS 11/18/24 12/01/24 History mg-pterostil 50 mg-broccol 30 mg capsule (Nrf2 Activator) zinc 15 mg tablet 7.5 mg PO DAILY 11/18/24 12/01/24 History montelukast 10 mg tablet See Rx Instructions .Route 11/23/24 12/01/24 Rx .COMPLEX #90 tabs Laboratory Tests 12/01/24 09:25 POC Capillary Glucose 111 H mg/dl (65-105) Patient hx anesthesia problems: none Family hx anesthesia problems: none Results Review: All pre-operative results and documents have been reviewed as part of the pre-operative evaluation. [facility] Past Medical History Medical History (Updated 12/01/24 @ 10:05 by Saurav Gates MD) Type 2 diabetes mellitus without complications Psoriasis Migraines Diabetes Asthma Anxiety Multiple sclerosis Surgical History Surgical History History of fusion of cervical spine History of cholecystectomy Family History Family History Mother Cerebrovascular accident Family history of diabetes mellitus in first degree relative Family history of malignant neoplasm of breast in first degree relative Sibling Family history of Parkinson's disease Father Family history of chronic obstructive pulmonary disease Family history of diabetes mellitus in first degree relative Grandparent Family history of malignant neoplasm of uterus Other Diabetes mellitus Family history of allergic disorder Family history of malignant neoplasm of breast Hypertension Social History Social History Social History: Smoking status: Never smoker Second hand tobacco smoke exposure: No Alcohol intake: never Substance use: never Substance use type: other Other substance usage details: CBD cream & drops Last use: PRN Do You Feel Safe in your Home?: Yes Lack of Transportation: No Lack of Food: Never True Current Housing: I Have Housing Concerned About Future Housing: No Difficulty Paying Gas/Electric Bills: No Difficulty Paying for Meds: No Currently Unemployed: YES Education: Trade/Vocational Certificate Difficulty w/ Childcare or Family Care: No Living arrangements: with family Additional living arrangements comments: HUSB AND SISTER Occupation/Education: unemployed Additional occupation/education comments: Disabled Gender identity (if verbalized by the patient): Female Sexual Orientation (if Verbalized by the Patient): Straight or Heterosexual Spiritual care concerns: No Anes - Eval Final PreProcedure Day of Procedure 12/01/24 10:04 Patient weight: overweight Heart: regular rate and rhythm Lungs: clear to auscultation Airway: Mallampati scale class II Neurological: alert and oriented Last oral intake: >/= 8 hours ASA classification: III Emergent: no Anesthetic plan: proceed Anesthesia type and monitoring: general ETT and standard monitoring Results Review: All pre-operative results and documents have been reviewed as part of the pre-operative evaluation. Informed Consent: The patient's anesthetic plan and its attendant risks and benefits were discussed with the patient/family/POA. Questions were solicited and answers provided to the satisfaction of the patient/family/POA.
--- NOTE | 2024-12-01 10:27 | WPDHPUPDATE1 ---
History and Physical Update Update Date/Time: 12/01/24 10:27 History and Physical has been reviewed, including an updated exam of the patient. There are NO changes in the patient's condition. Risks, benefits, and alternatives have been discussed and questions answered. Patient agrees to proceed with procedure.
--- NOTE | 2024-12-01 10:27 | PM.IMHP ---
H&P: HPI History of Present Illness Date/Time: 12/01/24 10:27 Chief Complaint: failed spinal cord stimulator Narrative: Ms. Ballesteros is a 59-year-old female with history of multiple sclerosis who underwent ACDF C3-4 in February for myelopathy who presents today for follow up of this surgery and to discuss possible replacement of her spinal cord stimulator. With respect to her neck, she is doing well. She has minimal neck discomfort from time to time. Her pre-operative headaches are gone. She also presents to talk about changing her Anders SCS to a paddle stimulator. This was placed initially in 2017 for back and primarily radicular right leg pain. This has worked well for her, but due to her frequent falls with MS, she has had various incidents of lead migration and impedance issues. She has had her stimulator revised twice, first in 2020, and second in July 2023. Her stimulator worked well for her last year until December/January, since when the device has not worked and has been off. Dr. Gonsalez has recommended consideration of a paddle electrode instead. From 10/21: She is doing well with respect to her neck since I saw her last. She does report development of tinnitus in the left ear over the last several months. She also reports intermittent numbness in her hands, worse on the right side, and worse at night. She has started to develop more constant numbness in the tip of her right thumb. She also returns to talk about replacing her spinal cord stimulator. She has had issues with migration of leads, and her generator is also no longer functioning as she had not placed the device into surgery mode during cervical surgery. Review of Systems Review of Systems: All systems reviewed & are unremarkable except as noted in HPI and below PMFSH Past Medical History Medical History (Updated 12/01/24 @ 10:05 by Saurav Gates MD) Type 2 diabetes mellitus without complications Psoriasis Migraines Diabetes Asthma Anxiety Multiple sclerosis Surgical History Surgical History History of fusion of cervical spine History of cholecystectomy Family History Family History Mother Cerebrovascular accident Family history of diabetes mellitus in first degree relative Family history of malignant neoplasm of breast in first degree relative Sibling Family history of Parkinson's disease Father Family history of chronic obstructive pulmonary disease Family history of diabetes mellitus in first degree relative Grandparent Family history of malignant neoplasm of uterus Other Diabetes mellitus Family history of allergic disorder Family history of malignant neoplasm of breast Hypertension Social History Social History Social History: Smoking status: Never smoker Second hand tobacco smoke exposure: No Alcohol intake: never Substance use: never Substance use type: other Other substance usage details: CBD cream & drops Last use: PRN Do You Feel Safe in your Home?: Yes Lack of Transportation: No Lack of Food: Never True Current Housing: I Have Housing Concerned About Future Housing: No Difficulty Paying Gas/Electric Bills: No Difficulty Paying for Meds: No Currently Unemployed: YES Education: Trade/Vocational Certificate Difficulty w/ Childcare or Family Care: No Living arrangements: with family Additional living arrangements comments: HUSB AND SISTER Occupation/Education: unemployed Additional occupation/education comments: Disabled Gender identity (if verbalized by the patient): Female Sexual Orientation (if Verbalized by the Patient): Straight or Heterosexual Spiritual care concerns: No Meds Home Medications and Allergies Home Medications ?Medication ?Instructions ?Recorded ?Confirmed ?Type blood-glucose,emergency department clinician,cont #1 ea 05/15/22 11/18/24 Rx (Dexcom G6 Facility Maintenance Technician) blood-glucose sensor (Dexcom G6 #3 ea 05/05/23 11/18/24 Rx Sensor device) dextromethorphan IR 45 1 tablet PO BID 09/03/23 12/01/24 History mg-bupropion ER 105 mg biphasic tablet (Auvelity) clonazepam 0.5 mg tablet 1 mg PO BID PRN anxiety 01/27/24 12/01/24 History duloxetine 60 mg capsule,delayed 60 mg PO BID 01/27/24 12/01/24 History release prednisolone acetate 1 % eye 1 drp RIGHT EYE Q12H PRN headache 01/27/24 12/01/24 History drops,suspension losartan 25 mg tablet 25 mg PO DAILY #90 tabs 04/26/24 12/01/24 Rx blood-glucose transmitter (Dexcom #1 ea 06/30/24 11/18/24 Rx G6 Transmitter device) teriflunomide 14 mg tablet 14 mg PO HS 09/16/24 12/01/24 History semaglutide 1 mg/dose (4 mg/3 mL) 1 mg (0.75 mL) subcut WEEKLY #3 mL 10/05/24 12/01/24 Rx subcutaneous pen injector (Ozempic) meclizine 12.5 mg tablet 12.5 mg PO TID PRN dizziness #30 11/04/24 12/01/24 Rx tabs Moringa oleifera 500 mg capsule 2,000 mg PO QAM 11/18/24 12/01/24 History acetaminophen 500 mg tablet 500 mg PO Q6H PRN pain 11/18/24 12/01/24 History (Acetaminophen Pain Relief) albuterol sulfate 90 mcg/actuation 1 inh inhalation Q4H PRN shortness 11/18/24 12/01/24 History aerosol inhaler of breath or wheezing atorvastatin 10 mg tablet 10 mg PO HS 11/18/24 12/01/24 History baclofen 20 mg tablet 20 mg PO BID 11/18/24 12/01/24 History biotin 10,000 mcg/mL (10 mg/mL) 15,000 mcg PO DAILY 11/18/24 12/01/24 History oral liquid calcium carbonate 600 mg PO BID 11/18/24 12/01/24 History cetirizine 10 mg capsule (All Day 10 mg PO QAM 11/18/24 12/01/24 History Allergy (cetirizine)) cholecalciferol (vitamin D3) 25 25 mcg PO ONCE 11/18/24 12/01/24 History mcg (1,000 unit) capsule fluticasone propionate 50 1 spray intranasal BID PRN nasal 11/18/24 12/01/24 History mcg/actuation nasal congestion spray,suspension (Flonase Allergy Relief) gabapentin 300 mg capsule 600 mg PO BID 11/18/24 12/01/24 History ibuprofen 200 mg tablet (IBU-200) 600 mg PO Q6H PRN pain 11/18/24 12/01/24 History magnesium citrate 125 mg capsule 225 mg PO DAILY 11/18/24 12/01/24 History multivitamin (Daily Multi-Vitamin 1 tablet PO DAILY 11/18/24 12/01/24 History tablet) turmeric 200 mg-green tea 200 1 cap PO HS 11/18/24 12/01/24 History mg-pterostil 50 mg-broccol 30 mg capsule (Nrf2 Activator) zinc 15 mg tablet 7.5 mg PO DAILY 11/18/24 12/01/24 History montelukast 10 mg tablet See Rx Instructions .Route 11/23/24 12/01/24 Rx .COMPLEX #90 tabs Allergies Allergy/AdvReac Type Severity Reaction Status Date / Time Sulfa (Sulfonamide AdvReac Nausea and Verified 12/01/24 10:03 Antibiotics) Vomiting Vital Signs Vital Signs - 24 hr 12/01/24 10:04 Temperature 97.3 F L Pulse Rate 103 H Blood Pressure 133/66 Pulse Oximetry 97 Oxygen Delivery Room Air Exam Narrative: Battery in left lateral buttock area Cervical incision is well healed Positive Quiroga's bilaterally Left > right hyperreflexia in lower extremities Positive Babinski on left Decreased sensation to light touch in right V2, V3 of face Left dorsiflexion 4+/5 Positive Tinel's and Phalen's at right carpal tunnel Decreased sensation to light touch in first-third fingers on right Negative Tinel's/Phalen's at left carpal tunnel Unless otherwise stated above, the patient's physical exam is as follows: General: -Well developed and well nourished. No acute distress. Cooperative with exam. Mental status: -Awake and oriented to person, place, and time. Affect is normal. -Fund of knowledge appropriate -Recent and remote memory are intact -Attention span and concentration appear normal -Language function is normal -There is no evidence of aphasia in conversational speech. Cranial nerves: -CN II: Visual moore full to bedside confrontation -CN III, IV, : Pupils equal, round, and reactive to light; extraocular movements, no ptosis, no nystagmus -CN V: Facial sensation intact in V1 through V3 distributions -CN VII: Face symmetric -CN VIII: Hearing intact to conversational speech -CN IX, X: Palate elevates symmetrically; normal phonation -CN XI: Symmetric full strength of sternocleidomastoid and trapezius muscles -CN XII: Tongue protrudes midline Integumentary: -No obvious skin lesions or masses Motor: -Muscle tone normal without spasticity of flaccidity. No atrophy. No fasciculations. -No pronator drift -Right upper extremity: deltoid 5/5, biceps 5/5, triceps 5/5, wrist extensors 5/5, wrist flexors 5/5, intrinsics 5/5 -Left upper extremity: deltoid 5/5, biceps 5/5, triceps 5/5, wrist extensors 5/5, wrist flexors 5/5, intrinsics 5/5 -Right lower extremity: iliopsoas 5/5, quadriceps 5/5, hamstrings 5/5, tibialis anterior 5/5, gastroc-soleus 5/5, EHL 5/5 -Left lower extremity: iliopsoas 5/5, quadriceps 5/5, hamstrings 5/5, tibialis anterior 5/5, gastroc-soleus 5/5, EHL 5/5 Sensory: -Intact to light touch throughout -Normal proprioception throughout Reflexes: -1-2+ DTR's throughout -No Quiroga's, clonus, or Babinski bilaterally I personally reviewed the thoracic xrays that show one percutaneous lead spanning T6 and T7 with a second lead spanning T8 and T9 I personally reviewed the cervical xrays that show hardware in good position Assessment and Plan Assessment and plan (1) Failed spinal cord stimulator: Code(s): T85.192A - Other mechanical complication of implanted electronic neurostimulator of spinal cord electrode (lead), initial encounter Status: Acute (2) Migration of spinal cord stimulator: Code(s): T85.122A - Displacement of implanted electronic neurostimulator of spinal cord electrode (lead), initial encounter Status: Acute Plan Ms. Ballesteros is a 59-year-old female with history of multiple sclerosis who underwent ACDF C3-4 in February who is clinically doing well surgery. Her x-rays today show hardware in good position. Regarding her intermittent hand numbness, this sounds consistent with carpal tunnel syndrome. We discussed having her attempt wrist splinting at night. We discussed the possibility of surgical intervention which we can address after her spinal cord stimulator if needed. Regarding her spinal cord stimulator, I am happy to replace this for her. We discussed surgery in the form of removal spinal cord stimulator leads and generator and T8 laminotomy for placement of spinal cord stimulator. This would be through an [employer] platform. We discussed surgery in detail including risks, expected recovery, and restrictions after surgery. She would like to keep her generator on the left side in its current location.
[2024-12-01] MEDS: ceFAZolin 2 GM in SODIUM CHLORIDE 0.9% IV 50 ML 100 ML IVPB (10:38)
[2024-12-01] MEDS: BUPIVACAINE/EPINEPHRINE 0.5% 50 ML VIAL 20 ML INFILTRATE (11:13)
[2024-12-01] MEDS: VANCOMYCIN HCL 1,000 MG VIAL 1000 MG TOPICAL (11:14)
--- NOTE | 2024-12-01 13:28 | W.PM.PROC2 ---
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 Removal of spinal cord stimulator leads and generator 2. T8, T9 laminotomies for placement of paddle spinal cord stimulator 3. Placement of new left gluteal generator 4. Use of C-arm for fluoroscopy Surgeon Phyllis Mcdonnell MD [employer] [facility] Anesthesia General Description of Procedure The patient was brought to the OR where general anesthesia was induced. The patient was turned prone onto the OR table with Roque frame. All pressure points were padded. C-arm was used to plan the level of the thoracic incision. The previous lumbar and left gluteal incisions were marked. The surgical site was prepped and draped in usual sterile fashion. Perioperative antibiotics were given. Local anesthesia was injected into the planned incisions. A 10-blade scalpel was used to open the previous gluteal incision, and the battery was exposed. This was removed from the pocket, and the leads were cut. The midline lumbar incision was opened with a scalpel, and the anchors were exposed with the bovie and freed from the surrounding soft tissue. The leads were removed in full from the spinal canal and were passed off the field. Next, the thoracic incision was opened with the scalpel, and the soft tissue was dissected with the bovie. The laminae were exposed bilaterally at T8 and T9. This was confirmed with the C-arm. A laminotomy was performed at the presumed level of T9 with the Leksell, high-speed drill, and kerrisons. The laminotomy opening was widened laterally. Cranially, a curved currette, Woodsen, and 3-penfield were used to separate the dura from the laminae. It was noted that a midline adhesion was present which was preventing midline placement of the stimulator. I extended the laminotomy cranially on the left side and performed a second laminotomy at T8 in order to lyse the adhesions which seemed to span the entire length of the vertebral level. I used curved currette, Woodsen, and kerrisons to free the adhesions. This took additional time to perform in order to take down the adhesion while also preventing a durotomy. Eventually, we were able to pass the paddle stimulator into the epidural space in the midline. The C-arm was brought in to confirm adequate and midline placement. Anchors were placed over the leads which were attached to the muscle with a 2-0 silk suture. The leads were tunneled to the gluteal incision. The leads were connected to the new generator which was then placed into the gluteal pocket. The generator was secured with a 2-0 silk suture. All incisions were irrigated copiously. Stimulan beads were placed into the pocket and in the thoracic incision. Hemostasis was ensured in the thoracic incision with the bipolar and floseal. The fascia was closed with 0 vicryl. The dermis was closed with 2-0 and 3-0 vicryl. The dermis at the lumbar and generator site were closed with 2-0 vicryl. The skin was closed at all three incisions with 4-0 monocryl. Dermabond was then placed. The patient was returned supine, extubated, and transferred to PACU. Billing codes: 62545, 15134, 26555 Estimated Blood Loss 50 Drains No Packing No Pathology None sent Complications None Condition Stable Disposition PACU [facility] Billing Surgery - Charge Forward: Surgery Billing
[2024-12-01] MEDS: oxyCODONE HCL (*CRX) 5 MG TAB IR PO (14:16)
== END 2024-12-01 14:40 | disposition home or self-care (01) ==
PROVIDERS: PCP Family Medicine; Visit Provider Neurological Surgery
PROC: (CPT 63661; principal; 2024-12-01 10:30)
DX: T85.192A Other mechanical complication of implanted electronic neurostimulator of spinal cord electrode (lead), initial encounter (principal); K66.0 Peritoneal adhesions (postprocedural) (postinfection); G35.D Multiple sclerosis, unspecified; E11.9 Type 2 diabetes mellitus without complications; J45.909 Unspecified asthma, uncomplicated; F41.9 Anxiety disorder, unspecified; L40.9 Psoriasis, unspecified; F12.90 Cannabis use, unspecified, uncomplicated; Y83.8 Other surgical procedures as the cause of abnormal reaction of the patient, or of later complication, without mention of misadventure at the time of the procedure; Z79.85 Long-term (current) use of injectable non-insulin antidiabetic drugs; Z79.51 Long term (current) use of inhaled steroids; Z79.1 Long term (current) use of non-steroidal anti-inflammatories (NSAID); Z98.1 Arthrodesis status; Z90.49 Acquired absence of other specified parts of digestive tract; Z80.3 Family history of malignant neoplasm of breast; Z80.49 Family history of malignant neoplasm of other genital organs
CPT/HCPCS: 63661; 63685; 63655; 82948; 99199; J0690; A9270; C1778; C1820; J1100; J2003; J2250; J2405; J2704; J3010; J3373; J7120